=== PATIENT | male | born 1970 | race Caucasian/White ===

== ENCOUNTER 2018-06-06 10:53 | Observation (INO) | payer BC ==
[2018-06-06 12:23] VITALS: BMI 34.9
[2018-06-06] MEDS: NA CHLORIDE 0.9% 1,000 ML IV SCH ×2 (13:09→20:13)
[2018-06-06 15:20] LABS: Urine Appearance CLEAR; Urine Bilirubin NEGATIVE (NEG); Urine Blood NEGATIVE (NEG); Urine Color YELLOW; Urine Glucose TRACE (NEG); Urine Protein TRACE (NEG); Urine Specific Gravity >=1.030 (1.005-1.030); Urine Urobilinogen 0.2 mg/dL (0.2-1.0)
[2018-06-06 15:21] LABS: Urine Microscopic Reflex ORDER UMIC
[2018-06-06 16:03] LABS: Urine Bacteria <20 /HPF (NONE SEEN); Urine RBC <5 /HPF (NONE SEEN)
[2018-06-06 16:04] LABS: Urine Culture Reflex Order NOT NEEDED; Urine Mucus 2+ /HPF (NONE SEEN)
[2018-06-06] MEDS ORDERED: ACETAMINOPHEN 500 MG TAB PO PRN (19:39)
[2018-06-06 22:57] VITALS: O2SAT 98
[2018-06-07] MEDS: NA CHLORIDE 0.9% 1,000 ML IV SCH ×2 (01:06→08:36)
[2018-06-07 04:37] LABS: Absolute Monocytes 0.4 K/uL (0.1-1.3); Absolute Neutrophil 2.2 K/uL (1.8-8.0); Basophils % 1.1 % (0-1.3); Eosinophils % 6.8 % (0-4.4); Hematocrit 43.9 % (39.6-49.0); Lymphocytes % 26.2 % (15.3-44.8); MCH 28.5 pg (27.0-35.0); MCV 84.6 fL (80-100); MPV 7.8 fL (7.6-11.3); Monocytes % 11.2 % (3.3-12.3); RBC Red Blood Cell Count 5.19 M/uL (4.33-5.43)
[2018-06-07 05:09] LABS: Potassium 4.4 mmol/L (3.5-5.1)
[2018-06-07 08:12] VITALS: BP 135/88; TEMP 97.9
--- NOTE | 2018-06-07 19:35 | HP ---
Date of Admission: 06/06/2018 Chief Complaint: Dehydration. History Of Present Illness: This patient was seen the day before admission in the office with abdomi nal cramps, diarrhea, inability to take fluids. He was diagnosed as possible viral syndrome with gas troenteritis. The patient had outpatient workup. This showed evidence of dehydration. On the next day, the patient returned because of continued symptoms. At this point because of continued dehydrat ion, the patient was admitted for observation for IV fluids. There is no history of blood in the sto ols. No history of vomiting of blood. No other focal symptoms. Past Medical History: The patient is not known to have any history of chronic illnesses other than l ymphedema and acid reflux. Surgical History: Positive for knee surgery and cataract surgery. Family History: Positive for hypertension, heart disease, and diabetes. Personal History: Nonsmoker. Allergies: NONE. Home Medicines: None. Review of Systems: No history of chest pain or shortness of breath. Physical Examination: General: Revealed a 47-year-old male, clinically dehydrated. Vital Signs: Blood pressure 112/80. HEENT: Negative. Neck: Supple. JVD negative. Chest: Clear. Heart: Regular. Abdomen: Mild diffuse tenderness. Bowel sounds present. Extremities: No edema. Neurologic: Negative. Laboratory Data: White count normal. Outpatient Chem profile showed elevation of BUN and creatinine , compatible with dehydration. Assessment: 1.Probable viral syndrome and gastroenteritis. 2.Dehydration. Plan: The patient received IV fluids. This morning his kidney function is back to normal. He will be discharged and advised to increase his oral fluids, and he will be checked again in the office theo barnes. ROWDY/KYLAH Voice ID: [id number]
== END 2018-06-07 09:05 | disposition home or self-care (01) ==
LOC: 4TH 11:26
PROVIDERS: ADMIT Internal Medicine; ATTEND Internal Medicine
DX: E86.0 Dehydration (principal); R19.7 Diarrhea, unspecified
CPT/HCPCS: 36415; 80048; 81003; 81015; 85025; G0378; J7030

== ENCOUNTER 2019-08-14 23:08 | Emergency (ER) | payer BC ==
[2019-08-14 23:41] LABS: Absolute Lymphocytes (CBC) 2.1 K/uL (0.7-4.9); Basophils % 1.3 % (0-1.3); Hematocrit 43.3 % (39.6-49.0); Lymphocytes % 28.6 % (15.3-44.8); MPV 8.3 fL (7.6-11.3); RBC Red Blood Cell Count 5.31 M/uL (4.33-5.43)
[2019-08-14 23:54] LABS: ALT/SGPT 16 U/L (12-78); AST/SGOT 8 U/L (15-37); Albumin 3.7 g/dL (3.4-5.0); Alkaline Phosphatase 125 U/L (45-117); BUN Blood Urea Nitrogen 29 mg/dL (7-18); Bicarbonate 27 mmol/L (21-32); Bilirubin Direct < 0.1 mg/dL (0-0.2); Bilirubin Total 0.2 mg/dL (0.2-1.0); Glucose Level 126 mg/dL (74-106); Magnesium 2.4 mg/dL (1.8-2.4); Potassium 3.9 mmol/L (3.5-5.1); Protein, Total 7.3 g/dL (6.4-8.2); Sodium Level 138 mmol/L (136-145); Troponin (Emerg Dept Use Only) < 0.02 ng/mL (0.0-0.045)
[2019-08-15] LABS: NT PRO-BNP < 5 pg/mL (<125)
[2019-08-15] MEDS ORDERED: KETOROLAC 30 MG/ML INJ ONE (01:52)
--- NOTE | 2019-08-15 02:06 | EDPHYS ---
Physician Documentation [facility] Name: Damián Angeles Age: 49 yrs Sex: Male : 1970 Arrival Date: 08/14/2019 Time: 23:09 Bed 14 Private MD: ED Physician Luis Antonio Hou HPI: 08/14 23:21 This 49 yrs old Male presents to ER via Unassigned with complaints of Chest rn Pain. 23:21 The patient or guardian reports chest pain that is located primarily in the right rn lateral anterior chest and left lateral anterior chest. Onset: 1 hour(s) ago. The pain does not radiate. Associated signs and symptoms: Pertinent positives: None. Pertinent negatives: abdominal pain, cough, diaphoresis, dizziness, shortness of breath, syncope, vomiting. The chest pain is described as sharp, stabbing. Duration: The patient or guardian reports multiple episodes, that are intermittent. Modifying factors: The symptoms are alleviated by nothing. the symptoms are aggravated by palpation of area. Severity of pain: At its worst the pain was moderate in the emergency department the pain has improved. The patient has not experienced similar symptoms in the past. Reports at work, does not perform physical activities, began with right sided chest pain and now also having left sided chest pain, sharp/stabbing, non-radiating, worse with palpation. No vomiting/diaphoresis. Reports thinks had stress test 6 months ago and was ok. No abd pain/vomiting. No trauma. No smoking or cough. No hx of dvt/PE. No recent surgery. . Historical: - Allergies: 23:05 No Known Allergies; jb4 - Home Meds: 23:05 Hydrochlorothiazide Oral [Active]; Metformin Oral [Active]; pravastatin oral oral jb4 [Active]; a small blue pill for high blood pressure [Active]; - PMHx: 23:05 Hypertension; High Cholesterol; Diabetes - NIDDM; Hernia; jb4 - PSHx: 23:05 Knee surgery; Hernia repair; jb4 - Immunization history:: Adult Immunizations up to date. - Social history:: Smoking status: Patient/guardian denies using tobacco, Patient/guardian denies using alcohol. - Family history:: not pertinent. - Ebola Screening: : No symptoms or risks identified at this time. - Hospitalizations: : No recent hospitalization is reported. ROS: 23:21 Constitutional: Negative for fever, chills, and weight loss, Eyes: Negative for injury, rn pain, redness, and discharge, Neck: Negative for injury, pain, and swelling, Cardiovascular: Negative for palpitations, and edema, Respiratory: Negative for shortness of breath, cough, wheezing, and pleuritic chest pain, Abdomen/GI: Negative for abdominal pain, nausea, vomiting, diarrhea, and constipation, MS/Extremity: Negative for injury and deformity, Skin: Negative for injury, rash, and discoloration, Neuro: Negative for headache, weakness, numbness, tingling, and seizure. Exam: 23:21 Constitutional: Overweight male Head/Face: Normocephalic, atraumatic. ENT: MMM rn Chest/axilla: Normal chest wall appearance and motion. No lesions, + reproducible chest pain left lateral chest and into axilla. No fluctuance or warmth. Cardiovascular: Regular rate and rhythm, no murmur. No pulse deficits. Respiratory: Lungs have equal breath sounds bilaterally, clear to auscultation. No increased work of breathing, no retractions or nasal flaring. Abdomen/GI: Soft, non-tender. No evidence of tenderness throughout. MS/ Extremity: Pulses equal, no cyanosis. Neurovascular intact. Full, normal range of motion. Equal circumference. Neuro: Awake and alert, GCS 15, oriented to person, place, time, and situation. Cranial nerves II-XII grossly intact. Motor strength 5/5 in all extremities. Sensory grossly intact. Vital Signs: 23:05 BP 125 / 89; Pulse 82; Resp 18; Temp 98.3(O); Pulse Ox 99% on R/A; Weight 104.33 kg jb4 (R); Height 5 ft. 6 in. (167.64 cm) (R); Pain 410; 08/15 00:00 BP 122 / 92; Pulse 80; Resp 18; Pulse Ox 98% on R/A; jb4 01:00 BP 114 / 77; Pulse 76; Resp 16; Pulse Ox 97% on R/A; jb4 02:00 BP 105 / 74; Pulse 76; Resp 16; Pulse Ox 97% on R/A; jb4 08/14 23:05 Body Mass Index 37.12 (104.33 kg, 167.64 cm) jb4 MDM: 08/14 23:11 Patient medically screened. rn 08/15 01:39 Differential diagnosis: abnormal EKG, acute myocardial infarction, acute pericarditis, rn anxiety, coronary artery disease chest wall pain, costochondritis, esophagitis, pleurisy, pneumothorax. Data reviewed: vital signs, nurses notes. 02:04 Response to treatment: the patient's symptoms have mildly improved after treatment, and rn as a result, I will discharge patient. Special discussion: Based on the patient's history, exam, and Dx evaluation, there is no indication for emergent intervention or inpatient Tx. It is understood by the patient/guardian that if the Sx's persist or worsen they need to return immediately for re-evaluation. I discussed with the patient/guardian in detail that at this point there is no indication for admission to the hospital. It is understood, however, that if the symptoms persist or worsen the patient needs to return immediately for re-evaluation. ED course: Trop neg x 2, neg stress test a few months ago, reproducible chest wall tenderness, normal vitals, will dc home with return precautions and cardiology/pcp f/u. . 08/14 23:11 Order name: Basic Metabolic Panel; Complete Time: 00:04 rn 08/14 23:11 Order name: CBC with Diff; Complete Time: 00:04 rn 08/14 23:11 Order name: LFT's; Complete Time: 00:04 rn 08/14 23:11 Order name: Magnesium; Complete Time: 00:04 rn 08/14 23:11 Order name: NT PRO-BNP; Complete Time: 00:04 rn 08/14 23:11 Order name: Troponin (emerg Dept Use Only); Complete Time: 00:04 rn 08/14 23:11 Order name: XRAY Chest (1 view) rn 08/14 23:11 Order name: EKG; Complete Time: 23:12 rn 08/14 23:11 Order name: Cardiac monitoring; Complete Time: 23:27 rn 08/14 23:11 Order name: EKG - Nurse/Tech; Complete Time: 23:27 rn 08/14 23:11 Order name: IV Saline Lock; Complete Time: 23:27 rn 08/14 23:11 Order name: Labs collected and sent; Complete Time: 23: rn 08/15 00:20 Order name: Troponin (emerg Dept Use Only): draw at 00:45; Complete Time: 01:39 rn 08/14 23:11 Order name: O2 Per Protocol; Complete Time: 23:27 rn 08/14 23:11 Order name: O2 Sat Monitoring; Complete Time: 23:27 rn Administered Medications: 01:55 Drug: TORadol 30 mg Route: IVP; Site: right antecubital; jb4 02:21 Follow up: Response: No adverse reaction; Pain is decreased jb4 Disposition: 08/15/19 02:05 Discharged to Home. Impression: Chest pain, unspecified. - Condition is Stable. - Discharge Instructions: Nonspecific Chest Pain, Chest Wall Pain. - Medication Reconciliation Form, Thank You Letter, Antibiotic Education, Prescription Opioid Use form. - Follow up: Private Physician; When: As needed; Reason: Recheck today's complaints, Re-evaluation by your physician. - Problem is new. - Symptoms have improved. Signatures: Dispatcher [employer] EDLuis Antonio White MD MD rn Bryson, James, RN RN jb4 Corrections: (The following items were deleted from the chart) 02:24 02:05 08/15/2019 02:05 Discharged to Home. Impression: Chest pain, unspecified. jb4 Condition is Stable. Forms are Medication Reconciliation Form, Thank You Letter, Antibiotic Education, Prescription Opioid Use. Follow up: Private Physician; When: As needed; Reason: Recheck today's complaints, Re-evaluation by your physician. Problem is new. Symptoms have improved. rn
--- NOTE | 2019-08-15 02:06 | ER ---
Nurse's Notes [facility] Name: Damián Angeles Age: 49 yrs Sex: Male : 1970 Arrival Date: 08/14/2019 Time: 23:09 Bed 14 Private MD: Diagnosis: Chest pain, unspecified Presentation: 08/14 23:05 Presenting complaint: EMS states: Pt reports having right sided rib pain that radiated jb4 across to the left chest. Reports it as being a stabbing pain that is reproducible by palpation. Pt's co-worker administered 3 325mg aspirin's upon hear the complaint of chest pain. 23:05 Transition of care: patient was not received from another setting of care. Onset of jb4 symptoms was August 14, 2019. Risk Assessment: Do you want to hurt yourself or someone else? Patient reports no desire to harm self or others. Initial Sepsis Screen: Does the patient meet any 2 criteria? No. Patient's initial sepsis screen is negative. Does the patient have a suspected source of infection? No. Patient's initial sepsis screen is negative. Care prior to arrival: IV initiated. 20 GA, in the right antecubital area, Oxygen administered. via nasal cannula. 23:05 Method Of Arrival: EMS: [facility] jb4 23:05 Acuity: FELIBERTO 3 jb4 Historical: - Allergies: 23:05 No Known Allergies; jb4 - Home Meds: 23:05 Hydrochlorothiazide Oral [Active]; Metformin Oral [Active]; pravastatin oral oral jb4 [Active]; a small blue pill for high blood pressure [Active]; - PMHx: 23:05 Hypertension; High Cholesterol; Diabetes - NIDDM; Hernia; jb4 - PSHx: 23:05 Knee surgery; Hernia repair; jb4 - Immunization history:: Adult Immunizations up to date. - Social history:: Smoking status: Patient/guardian denies using tobacco, Patient/guardian denies using alcohol. - Family history:: not pertinent. - Ebola Screening: : No symptoms or risks identified at this time. - Hospitalizations: : No recent hospitalization is reported. Screenin:05 Abuse screen: Denies threats or abuse. Nutritional screening: No deficits noted. jb4 Tuberculosis screening: No symptoms or risk factors identified. Fall Risk IV access (20 points). Total Eastman Fall Scale indicates No Risk (0-24 pts). Assessment: 23:05 General: Appears in no apparent distress. uncomfortable, Behavior is calm, cooperative, jb4 appropriate for age. Pain: Complains of pain in right lateral anterior chest Pain radiates to anterior aspect of left upper chest and left lateral anterior chest Pain currently is 4 out of 10 on a pain scale. at worst was 8 out of 10 on a pain scale. Quality of pain is described as stabbing, Pain began 1 hour ago. Is continuous. Neuro: Level of Consciousness is awake, alert, obeys commands, Oriented to person, place, time, situation. Cardiovascular: Patient's skin is warm and dry. Rhythm is sinus rhythm. Respiratory: Airway is patent Respiratory effort is even, unlabored, Respiratory pattern is regular, symmetrical. GI: No deficits noted. No signs and/or symptoms were reported involving the gastrointestinal system. : No deficits noted. No signs and/or symptoms were reported regarding the genitourinary system. EENT: No deficits noted. No signs and/or symptoms were reported regarding the EENT system. Derm: Skin is intact, Skin is pink, warm \T\ dry. 08/15 00:10 Reassessment: Patient appears in no apparent distress at this time. Patient and/or jb4 family updated on plan of care and expected duration. Pain level reassessed. Patient is alert, oriented x 3, equal unlabored respirations, skin warm/dry/pink. Provider at the bedside. 01:19 Reassessment: Patient appears in no apparent distress at this time. Patient and/or jb4 family updated on plan of care and expected duration. Pain level reassessed. Patient is alert, oriented x 3, equal unlabored respirations, skin warm/dry/pink. 02:22 Reassessment: Patient appears in no apparent distress at this time. Patient and/or jb4 family updated on plan of care and expected duration. Pain level reassessed. Patient is alert, oriented x 3, equal unlabored respirations, skin warm/dry/pink. PT verbalized understanding of d/c and follow up instructions. Denies questions or concerns. Patient states feeling better. Patient states symptoms have improved. Vital Signs: 08/14 23:05 BP 125 / 89; Pulse 82; Resp 18; Temp 98.3(O); Pulse Ox 99% on R/A; Weight 104.33 kg jb4 (R); Height 5 ft. 6 in. (167.64 cm) (R); Pain 01/16; 08/15 00:00 BP 122 / 92; Pulse 80; Resp 18; Pulse Ox 98% on R/A; jb4 01:00 BP 114 / 77; Pulse 76; Resp 16; Pulse Ox 97% on R/A; jb4 02:00 BP 105 / 74; Pulse 76; Resp 16; Pulse Ox 97% on R/A; jb4 08/14 23:05 Body Mass Index 37.12 (104.33 kg, 167.64 cm) jb4 ED Course: 08/14 23:05 Arm band placed on right wrist. EKG completed in triage. Results shown to MD. jb4 23:05 Patient has correct armband on for positive identification. Placed in gown. Bed in low jb4 position. Call light in reach. Side rails up X 1. bus monitor on. Pulse ox on. NIBP on. 23:05 Maintain EMS IV. Dressing intact. Good blood return noted. Site clean \T\ dry. Gauge \T\ wanda 4 site: 20g RAC. Flushed right antecubital with 5 ml normal saline Converted IV to saline lock on right antecubital area. Patient maintains SpO2 saturation greater than 95% on room air. 23:09 Patient arrived in ED. ds1 23:11 Luis Antonio Hou MD is Attending Physician. rn 23:14 Klaus Xiong, KYLE is Primary Nurse. jb4 23:21 Triage completed. jb4 23:42 XRAY Chest (1 view) In Process Unspecified. EDMS 08/15 02:24 No provider procedures requiring assistance completed. IV discontinued, intact, jb4 bleeding controlled, No redness/swelling at site. Pressure dressing applied. Administered Medications: 01:55 Drug: TORadol 30 mg Route: IVP; Site: right antecubital; jb4 02:21 Follow up: Response: No adverse reaction; Pain is decreased jb4 Outcome: 02:05 Discharge ordered by . rn 02:24 Discharged to home ambulatory, with family. jb4 02:24 Condition: stable 02:24 Discharge instructions given to patient, family, Instructed on discharge instructions, follow up and referral plans. Demonstrated understanding of instructions, follow-up care. 02:24 Patient left the ED. jb4 Signatures: Dispatcher [employer] Teresa Madison ds1 Luis Antonio Hou MD MD rn Bryson, James, RN RN jb4
[2019-08-15 02:30] VITALS: O2SAT 97
[2019-08-15 02:31] VITALS: BP 105/74
--- NOTE | 2019-08-15 08:02 | RAD REPORT ---
EXAM DESCRIPTION: RAD - Chest Single View - 08/14/2019 11:42 pm CLINICAL HISTORY: CHEST PAIN Chest pain. COMPARISON: CHEST PA AND LAT 2 VIEW dated 10/04/2010; CHEST PA AND LAT 2 VIEW dated 05/22/2008; CHEST SINGLE VIEW dated 05/18/2008; CHEST PA AND LAT 2 VIEW dated 04/18/2008 FINDINGS: Portable technique limits examination quality. The lungs are grossly clear. The heart is normal in size. No displaced fractures. IMPRESSION: No acute intrathoracic process suspected.
--- NOTE | 2019-08-15 17:25 | EKG ---
Test Date: 2019-08-14 Test Time: 23:09:07 Plating Engineer: DENISA MEASUREMENT RESULTS: Intervals: Rate: 83 SC: 170 QRSD: 86 QT: 356 QTc: 418 [place]: P: 50 SC: 170 QRS: -5 T: 42 INTERPRETIVE STATEMENTS: Normal sinus rhythm Normal ECG Compared to ECG 05/22/2008 03:11:08 No significant changes Electronically Signed On 08-15-19 17:22:00 [employer] by Thompson Ji
== END 2019-08-15 02:24 | disposition home or self-care (01) ==
LOC: ER 23:08
DX: R07.9 Chest pain, unspecified (principal); E11.9 Type 2 diabetes mellitus without complications; I10 Essential (primary) hypertension; E78.5 Hyperlipidemia, unspecified
CPT/HCPCS: 36415; 71045; 80048; 80076; 83735; 83880; 84484; 85025; 93005; 96374; 99285

== ENCOUNTER 2022-02-19 15:40 | Inpatient (IN) | payer BC ==
[2022-02-19] MEDS ORDERED: MORPHINE 2 MG/ML SYR ONE (17:15)
[2022-02-19 17:21] LABS: Urine Blood Negative (Negative); Urine Glucose 2+ (Negative); Urine Protein Negative (Negative); Urine Specific Gravity 1.015 (1.005-1.030); Urine pH 5.5 (5.0-7.0)
[2022-02-19 17:36] LABS: Absolute Lymphocytes (CBC) 0.5 K/uL (0.7-4.9); Hematocrit 53.4 % (39.6-49.0); Lymphocytes % 3.2 % (15.3-44.8); RBC Red Blood Cell Count 6.33 M/uL (4.33-5.43)
[2022-02-19 17:41] LABS: Urine Bacteria <20 /HPF (NONE SEEN); Urine RBC <5 /HPF (NONE SEEN)
[2022-02-19 17:48] LABS: Protime INR 1.04
[2022-02-19 17:52] LABS: Albumin 4.4 g/dL (3.4-5.0); Bilirubin Direct 0.2 mg/dL (0-0.2); Bilirubin Total 0.7 mg/dL (0.2-1.0); Potassium 3.9 mmol/L (3.5-5.1); Protein, Total 8.2 g/dL (6.4-8.2); Troponin High Sensitivity 5.6 pg/mL (<58.9)
--- NOTE | 2022-02-19 17:59 | RAD REPORT ---
EXAM DESCRIPTION: US - Extrem Venous W Compress Melvin - 02/19/2022 5:48 pm CLINICAL HISTORY: Right calf pain COMPARISON: None. TECHNIQUE: Real-time sonographic evaluation of the bilateral lower extremity deep venous systems was performed. FINDINGS: Normal compressibility, flow augmentation, phasic flow and spontaneous flow is identified in both the left and right lower extremity deep venous systems. No intraluminal filling defects seen. IMPRESSION: No DVT in either lower extremity.
[2022-02-19] MEDS ORDERED: NA CHLORIDE 0.9% 1,000 ML ONE ×2 (18:17→20:39)
--- NOTE | 2022-02-19 18:46 | RAD REPORT ---
EXAM DESCRIPTION: RAD - Chest Single View - 02/19/2022 6:32 pm CLINICAL HISTORY: edema COMPARISON: Chest Single View dated 08/14/2019; CHEST PA AND LAT 2 VIEW dated 10/04/2010; CHEST PA AN D LAT 2 VIEW dated 05/22/2008; CHEST SINGLE VIEW dated 05/18/2008 FINDINGS: Lines: None. Lungs: No evidence of edema or pneumonia. Pleural: No significant pleural effusions or pneumothorax. Cardiac: The heart size is within normal limits. Bones: No acute fractures. Other: IMPRESSION: No acute cardiopulmonary disease.
[2022-02-19] MEDS ORDERED: KETOROLAC 30 MG/ML INJ ONE (19:44)
[2022-02-19 20:29] LABS: Blood Morphology Comment NOT SEEN (NOT SEEN); Platelet Estimate ADEQ; White Blood Cell Scan OK (OK)
--- NOTE | 2022-02-19 20:36 | EDPHYS ---
Physician Documentation [facility] Name: Damián Angeles Age: 51 yrs Sex: Male : 1970 Arrival Date: 02/19/2022 Time: 15:42 Bed 24 Private MD: ED Physician Zackery Odonnell HPI: 02/19 17:00 This 51 yrs old Male presents to ER via EMS with complaints of Leg Pain, Headache. cp 17:00 The patient presents with pain, that is acute. The complaints affect the medial aspect cp of right thigh. Context: resulted from an unknown cause, the patient can fully bear weight, the patient is able to ambulate, with mild difficulty. Onset: The symptoms/episode began/occurred today. Associated signs and symptoms: Pertinent positives: chills, Pertinent negatives fever, numbness, vomiting. Historical: - Allergies: 15:45 No Known Allergies; bp - Home Meds: 15:45 Hydrochlorothiazide Oral [Active]; a small blue pill for high blood pressure [Active]; bp Metformin Oral [Active]; pravastatin Oral [Active]; - PMHx: 15:45 Diabetes - NIDDM; Hernia; High Cholesterol; Hypertension; bp - Immunization history:: Adult Immunizations up to date. - Social history:: Smoking status: Patient denies any tobacco usage or history of. ROS: 17:05 Constitutional: Positive for body aches, chills, Negative for fever, poor PO intake. cp 17:05 Eyes: Negative for injury, pain, redness, and discharge. cp 17:05 ENT: Negative for drainage from ear(s), ear pain, sinus congestion, sore throat, difficulty swallowing, difficulty handling secretions. 17:05 Cardiovascular: Positive for edema, Negative for chest pain, palpitations. 17:05 Respiratory: Negative for cough, shortness of breath, wheezing. 17:05 Abdomen/GI: Negative for abdominal pain, nausea, vomiting, and diarrhea, constipation. 17:05 : Negative for urinary symptoms. 17:05 Neuro: Positive for headache, Negative for altered mental status, weakness. 17:05 All other systems are negative. Exam: 17:10 Constitutional: The patient appears in no acute distress, alert, awake, cp non-diaphoretic, non-toxic, well developed, well nourished, obese. 17:10 Head/Face: Normocephalic, atraumatic. cp 17:10 Eyes: Periorbital structures: appear normal, Conjunctiva: normal, no exudate, no injection, Sclera: no appreciated abnormality, Lids and lashes: appear normal, bilaterally. 17:10 ENT: External ear(s): are unremarkable, Nose: is normal, Mouth: Lips: moist, Oral mucosa: pink and intact, moist, Posterior pharynx: Airway: no evidence of obstruction, patent. 17:10 Neck: ROM/movement: is normal, is supple, without pain, no range of motions limitations, no meningismus. 17:10 Chest/axilla: Inspection: normal. 17:10 Cardiovascular: Rate: normal, Rhythm: regular, Edema: pedal edema, that is mild, ankle edema, that is mild, JVD: is not appreciated. 17:10 Respiratory: the patient does not display signs of respiratory distress, Respirations: normal, no use of accessory muscles, no retractions, labored breathing, is not present, Breath sounds: are clear throughout, no decreased breath sounds, no stridor, no wheezing. 17:10 Abdomen/GI: Inspection: abdomen appears normal, Palpation: abdomen is soft and non-tender, in all quadrants. 17:10 Back: pain, is absent, ROM is normal. 17:10 Musculoskeletal/extremity: Extremities: noted in the medial aspect of right thigh: pain, tenderness. 17:10 Neuro: Orientation: to person, place \\T\\ time. Mentation: is normal, Motor: moves all fours, strength is normal, Sensation: is normal. 18:15 ECG was reviewed by the Attending Physician. cp Vital Signs: 15:43 BP 130 / 91; Pulse 93; Resp 15; Temp 98; Pulse Ox 100% ; bp 19:00 BP 86 / 50; Pulse 114; Resp 18; Temp 99.1; Pulse Ox 96% on R/A; Pain 0/10; breana 20:00 BP 85 / 55; Pulse 105; Resp 18; Pulse Ox 95% on R/A; Pain 0/10; breana 21:16 BP 89 / 62; Pulse 110; Resp 18; Temp 99.1; Pulse Ox 97% on R/A; Pain 0/10; breana MDM: 16:11 Patient medically screened. 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 Post IV fluid administration reassessment for Sepsis: Client prescribed 30 mL/kg IVF. Focused Assessment performed: February 19, 2022 at 22:47 Heart: Regular rate/rhythm noted. Lungs: Noted to be clear bilaterally. Current vital signs reviewed: Yes. 02/19 16:57 Order name: Basic Metabolic Panel; Complete Time: 18:10 cp 02/19 18:10 Interpretation: Normal except: NA 134; GLUC 189; BUN 21; CRE 1.42; GFR 59. cp 02/19 16:57 Order name: CBC with Diff; Complete Time: 21:15 cp 02/19 18:10 Interpretation: Normal except: WBC 14.0; RBC 6.33; HCT 53.4; BETO% 92.0; LYM% 3.2; NEUT cp A 12.9; LYMA 0.5. 02/19 16:57 Order name: LFT's; Complete Time: 18:10 cp 02/19 18:11 Interpretation: Normal except: AST 5; ALK 141; GLOB 3.8. cp 02/19 16:57 Order name: Magnesium; Complete Time: 18:10 cp 02/19 16:57 Order name: NT PRO-BNP; Complete Time: 18:10 cp 02/19 16:57 Order name: PT-INR; Complete Time: 18:10 cp 02/19 16:57 Order name: Troponin HS; Complete Time: 18:10 cp 02/19 16:57 Order name: Urine Microscopic Only; Complete Time: 18:10 cp 02/19 16:57 Order name: COVID-19 SARS RT PCR (Document "Date of Onset" if Symptomatic); Complete cp Time: 20:00 02/19 16:57 Order name: Influenza Screen (a \\T\\ B); Complete Time: 20:00 cp 02/19 17:21 Order name: Urine Dipstick-Ancillary; Complete Time: 18:10 EDMS 02/19 18:53 Interpretation: Normal except: UGLUC 2+. cp 02/19 20:02 Order name: Lactate; Complete Time: 21:15 cp 02/19 20:02 Order name: Procalcitonin; Complete Time: 21:15 cp 02/19 21:15 Interpretation: Procalcitonin 2.20; Reviewed. 02/19 20:02 Order name: Blood Culture Adult (2) cp 02/19 20:29 Order name: CBC Smear Scan; Complete Time: 21:15 EDMS 02/19 21:23 Order name: Glucose, Ancillary Testing; Complete Time: 22:35 EDMS 02/20 04:52 Order name: Urinalysis EDMS 02/20 05:14 Order name: Comprehensive Metabolic Panel EDMS 02/20 05:20 Order name: CBC with Automated Diff EDMS 02/20 06:11 Order name: Urine Microscopic Only EDMS 02/20 08:10 Order name: Glucose, Ancillary Testing EDMS 02/20 11:46 Order name: Glucose, Ancillary Testing EDMS 02/20 16:06 Order name: Glucose, Ancillary Testing EDMS 02/20 20:27 Order name: Glucose, Ancillary Testing EDMS 02/21 04:38 Order name: CBC with Automated Diff EDMS 02/21 04:56 Order name: Comprehensive Metabolic Panel EDMS 02/21 07:56 Order name: Glucose, Ancillary Testing EDMS 02/21 08:06 Order name: Urine Culture EDMS 02/21 11:56 Order name: Glucose, Ancillary Testing EDMS 02/21 16:49 Order name: Glucose, Ancillary Testing EDMS 02/19 16:57 Order name: XRAY Chest (1 view); Complete Time: 18:53 02/19 18:53 Interpretation: Report review. 02/19 16:57 Order name: EKG; Complete Time: 16:57 02/19 16:57 Order name: Cardiac monitoring; Complete Time: 17:14 02/19 16:57 Order name: EKG - Nurse/Tech; Complete Time: 18:23 02/19 16:57 Order name: IV Saline Lock; Complete Time: 17:14 02/19 16:57 Order name: Labs collected and sent; Complete Time: 17:14 02/19 16:57 Order name: O2 Per Protocol; Complete Time: 17:14 cp 02/19 16:57 Order name: O2 Sat Monitoring; Complete Time: 17:14 cp 02/19 16:57 Order name: Urine Dipstick-Ancillary (obtain specimen); Complete Time: 17:21 cp 02/19 16:57 Order name: US Extremity Venous W Compression Melvin; Complete Time: 18:10 cp 02/21 20:23 Order name: Vancomycin Level Trough EDMS 02/21 21:10 Order name: Glucose, Ancillary Testing EDMS 02/22 03:53 Order name: CBC with Automated Diff EDMS 02/22 04:18 Order name: Comprehensive Metabolic Panel EDMS 02/22 07:34 Order name: Glucose, Ancillary Testing EDMS 02/22 11:23 Order name: Glucose, Ancillary Testing EDMS EC:15 Rate is 112 beats/min. Rhythm is regular. WV interval is normal. QRS interval is cp normal. QT interval is normal. Interpreted by me. Reviewed by me. Administered Medications: 17:15 Drug: morphine 2 mg Route: IVP; Site: right antecubital; bp 18:58 Follow up: Response: Pain is decreased bp 18:23 Drug: NS 0.9% 1000 ml Route: IV; Rate: 1 bolus; Site: right antecubital; bp 21:31 Follow up: IV Status: Completed infusion; IV Intake: 1000ml breana 19:51 Drug: Ketorolac 15 mg Route: IVP; Site: right antecubital; breana 20:32 Follow up: Response: No adverse reaction breana 20:39 Drug: Cefepime 2 grams Route: IVPB; Rate: 200 ml/hr; Infused Over: 30 mins; Site: right breana antecubital; 21:31 Follow up: IV Status: Completed infusion; IV Intake: 100ml breana 21:16 Drug: vancoMYCIN 1.5 grams Route: IVPB; Rate: calculated rate; Site: right antecubital; breana 21:31 Drug: NS 0.9% 1000 ml Route: IV; Rate: 1 bolus; Site: right antecubital; breana 02/21 08:48 CANCELLED (Physician Discretion): NS 0.9% 1000 ml IV at 125 ml/hr continuous jd3 08:48 CANCELLED (Physician Discretion): NS 0.9% 1000 ml IV at 1 bolus Per protocol; 1000 mL jd3 bolus Disposition Summary: 02/19/22 20:35 Hospitalization Ordered Hospitalization Status: Inpatient Admission cp Condition: Stable cp Problem: new cp Symptoms: have improved cp Bed/Room Type: Standard cp Location: [facility] ER HOLD(02/19/22 20:39) cg Room Assignment: ERHOLD-(02/19/22 20:39) cg Provider: Desmond Mckeon(02/19/22 21:37) la1 Diagnosis - Cellulitis of right lower limb cp Forms: - Medication Reconciliation Form cp - SBAR form cp Signatures: Dispatcher [employer] Kenny Chadwick, MIMA-Will SAND MIXER MACHINE-Cla1 Kelechi Murphy PA PA cp Teresa Childers, RN RN cg Will Martin RN RN bp O'Farrell, Brenda, RN RN bo Davies, Jonathon RN jd3 Corrections: (The following items were deleted from the chart) 02/19 18:11 18:11 Normal except: AST 5; ALK 141. cp cp 20:39 20:35 Telemetry/MedSurg (Inpatient) cp cg 20:39 20:35 cp cg 21:37 20:35 Kenny Menon cp la1 02/21 08:48 02/19 21:37 NS 0.9% 1000 ml IV at 125 ml/hr continuous ordered. la1 jd3 02/21 08:48 02/19 22:25 NS 0.9% 1000 ml IV at 1 bolus Per protocol; 1000 mL bolus ordered. cp jd3
--- NOTE | 2022-02-19 20:36 | ER ---
Nurse's Notes [facility] Name: Damián Angeles Age: 51 yrs Sex: Male : 1970 Arrival Date: 02/19/2022 Time: 15:42 Bed 24 Private MD: Diagnosis: Cellulitis of right lower limb Presentation: 02/19 15:43 Chief complaint: EMS states: BLE EDEMA AND PAIN, HEADACHE. Coronavirus screen: At this bp time, the client does not indicate any symptoms associated with coronavirus-19. Ebola Screen: No symptoms or risks identified at this time. Initial Sepsis Screen: Does the patient meet any 2 criteria? No. Patient's initial sepsis screen is negative. Does the patient have a suspected source of infection? No. Patient's initial sepsis screen is negative. Risk Assessment: Do you want to hurt yourself or someone else? Patient reports no desire to harm self or others. Onset of symptoms was February 19, 2022. Care prior to arrival: Glucose check: 159. 15:43 Method Of Arrival: EMS: [facility] bp 15:43 Acuity: FELIBERTO 3 bp Triage Assessment: 15:45 Headache History: The patient has had previous headaches and this one is similar to bp previous episodes. General: Appears in no apparent distress. uncomfortable, obese, Behavior is calm, cooperative, appropriate for age. Pain: Complains of pain in head, right leg and left leg Pain currently is 5 out of 10 on a pain scale. Pain began 1 day ago. Also complains of no other associated symptoms. EENT: No deficits noted. Neuro: Level of Consciousness is awake, alert, obeys commands, Oriented to Appropriate for age. Cardiovascular: No deficits noted. Respiratory: No deficits noted. GI: No signs and/or symptoms were reported involving the gastrointestinal system. : No signs and/or symptoms were reported regarding the genitourinary system. Derm: No deficits noted. Musculoskeletal: Swelling present in right leg and left leg. Historical: - Allergies: 15:45 No Known Allergies; bp - Home Meds: 15:45 Hydrochlorothiazide Oral [Active]; a small blue pill for high blood pressure [Active]; bp Metformin Oral [Active]; pravastatin Oral [Active]; - PMHx: 15:45 Diabetes - NIDDM; Hernia; High Cholesterol; Hypertension; bp - Immunization history:: Adult Immunizations up to date. - Social history:: Smoking status: Patient denies any tobacco usage or history of. Screenin:46 Abuse screen: Denies threats or abuse. Denies injuries from another. Nutritional bp screening: No deficits noted. Tuberculosis screening: No symptoms or risk factors identified. Fall Risk None identified. Assessment: 15:46 General: SEE TRIAGE NOTE. bp Vital Signs: 15:43 BP 130 / 91; Pulse 93; Resp 15; Temp 98; Pulse Ox 100% ; bp 19:00 BP 86 / 50; Pulse 114; Resp 18; Temp 99.1; Pulse Ox 96% on R/A; Pain 0/10; breana 20:00 BP 85 / 55; Pulse 105; Resp 18; Pulse Ox 95% on R/A; Pain 0/10; breana 21:16 BP 89 / 62; Pulse 110; Resp 18; Temp 99.1; Pulse Ox 97% on R/A; Pain 0/10; breana ED Course: 15:42 Patient arrived in ED. bp 15:44 Triage completed. bp 15:45 Arm band placed on. bp 15:46 Patient has correct armband on for positive identification. Bed in low position. Call bp light in reach. Side rails up X2. 16:02 Kelechi Murphy PA is PHCP. cp 16:02 Zackery Odonnell MD is Attending Physician. cp 17:06 Will Martin, KYLE is Primary Nurse. bp 17:21 Inserted saline lock: 20 gauge in right antecubital area, using aseptic technique. mb7 Blood collected. 17:21 Urine Microscopic Only Sent. mb7 17:49 US Extremity Venous W Compression Melvin In Process Unspecified. EDMS 18:11 EKG done, by ED staff, reviewed by Kelechi BURKS. mb7 18:34 XRAY Chest (1 view) In Process Unspecified. EDMS 20:32 Lactate Sent. breana 20:32 Procalcitonin Sent. breana 20:32 Blood Culture Adult (2) Sent. breana 20:34 Kenny Menon is Hospitalizing Provider. cp 20:38 Blood Culture Adult (2) Sent. breana 20:38 Procalcitonin Sent. breana 20:38 Lactate Sent. breana 20:50 Blood Culture Adult (2) Sent. breana 20:50 Procalcitonin Sent. breana 20:50 Lactate Sent. breana 21:37 Omitogun, Desmond, MD is Hospitalizing Provider. la1 02/21 07:21 Primary Nurse role handed off by Will Martin RN 02/22 07:00 No provider procedures requiring assistance completed. Patient admitted, IV remains in jl7 place. intact, No redness/swelling at site. Administered Medications: 02/19 17:15 Drug: morphine 2 mg Route: IVP; Site: right antecubital; bp 18:58 Follow up: Response: Pain is decreased bp 18:23 Drug: NS 0.9% 1000 ml Route: IV; Rate: 1 bolus; Site: right antecubital; bp 21:31 Follow up: IV Status: Completed infusion; IV Intake: 1000ml breana 19:51 Drug: Ketorolac 15 mg Route: IVP; Site: right antecubital; breana 20:32 Follow up: Response: No adverse reaction breana 20:39 Drug: Cefepime 2 grams Route: IVPB; Rate: 200 ml/hr; Infused Over: 30 mins; Site: right breana antecubital; 21:31 Follow up: IV Status: Completed infusion; IV Intake: 100ml breana 21:16 Drug: vancoMYCIN 1.5 grams Route: IVPB; Rate: calculated rate; Site: right antecubital; breana 21:31 Drug: NS 0.9% 1000 ml Route: IV; Rate: 1 bolus; Site: right antecubital; breana 02/21 08:48 CANCELLED (Physician Discretion): NS 0.9% 1000 ml IV at 125 ml/hr continuous jd3 08:48 CANCELLED (Physician Discretion): NS 0.9% 1000 ml IV at 1 bolus Per protocol; 1000 mL jd3 bolus Medication: 02/19 15:46 VIS not applicable for this client. bp Intake: 21:31 IV: 1000ml; Total: 1000ml. breana 21:31 IV: 100ml; Total: 1100ml. breana Outcome: 20:35 Decision to Hospitalize by Provider. 02/22 07:00 Admitted to ER Hold. Please see [facility] for further documentation. jl7 Condition: stable Discharge instructions given to patient, Instructed on the need for admit, Demonstrated understanding of instructions. 15:19 Patient left the ED. jl7 Signatures: Dispatcher [employer] EDMS Kenya Razo Lee, STUDENT UNION CONSULTANT-C STUDENT UNION CONSULTANT-Cla1 Kelechi Murphy PA PA cp Leal, Jahala, RN RN jl7 Will Martin RN RN Viviane Damon [facility] Skyla Zamora RN RN Rodríguez Gomez RN jd3
[2022-02-19] MEDS ORDERED: NA CHLORIDE 0.9% 100 ML IV ONE (20:39)
[2022-02-19] MEDS ORDERED: CEFEPIME 2 GM VIAL ONE (20:39)
[2022-02-19] MEDS ORDERED: VANCOMYCIN 1 GM/VIAL ONE (20:53)
[2022-02-19] MEDS ORDERED: NA CHLORIDE 0.9% 500 ML ONE (20:53)
[2022-02-19] MEDS ORDERED: VANCOMYCIN 500 MG/VIAL ONE (20:53)
--- NOTE | 2022-02-19 21:49 | P.HP ---
Certification for Inpatient Patient admitted to: Inpatient Patient will require the following post-hospital care: None Practitioner: I am a practitioner with admitting privileges, knowledge of patient current condition, hospital course, and medical plan of care. Services: Services provided to patient in accordance with Admission requirements found in Title 42 Section 412.3 of the Code of Federal Regulations Patient History Date of Service: 02/19/22 History of Present Illness: 51-year-old male with history of diabetes type [id number], hypertension, hyperlipidemia presents the emergency department for right lower extremity pain. Patient ports that he has similar pain when he has had episodes of cellulitis many years in the past. He reports the pain began this morning he has pain in his right lower extremity distally as well as in his groin area. Patient was evaluated emergency department found to have elevated white blood cell count at 14,000 mild acute kidney injury/CKD elevated procalcitonin ultrasound negative for DVT. Patient's blood pressure dropped while he was in emergency department to around 85/60 sepsis fluid bolus was initiated patient was given vancomycin and cefepime, ED provider wishes to admit for sepsis, cellulitis. Allergies No Known Hugo Allergy (Uncoded 06/06/18 12:04) Unknown Home Medications: NK [No Home Meds] 06/06/18 - Past Medical/Surgical History Diabetic: No -: lymphedema tiffany leg/feet -: reflux -: cataract -: tiffany knee surgery Psychosocial/ Personal History: Lives at home with family - Family History Father -: Heart disease, Hypertension, Diabetes Mother -: Heart disease - Social History Smoking Status: Never smoker Alcohol use: Yes CD- Drugs: No Caffeine use: Yes Place of Residence: Home Review of Systems 10-point ROS is otherwise unremarkable General: Malaise Musculoskeletal: Leg Pain Physical Examination - Physical Exam General: Alert, In no apparent distress, Oriented x3 HEENT: Atraumatic, PERRLA, Mucous membr. moist/pink, EOMI, Sclerae nonicteric Neck: Supple, 2+ carotid pulse no bruit, No LAD, Without JVD or thyroid abnormality Respiratory: Clear to auscultation bilaterally, Normal air movement Cardiovascular: Regular rate/rhythm, Normal S1 S2 Gastrointestinal: Normal bowel sounds, No tenderness Musculoskeletal: Erythema, Tenderness, Warmth Integumentary: No rashes Neurological: Normal speech, Normal strength at 5/5 x4 extr, Normal tone, Normal affect Lymphatics: No axilla or inguinal lymphadenopathy - Studies Laboratory Data (last 24 hrs) 02/19/22 17:15: PT 11.5, INR 1.04 02/19/22 17:15: WBC 14.0 H, Hgb 17.9, Hct 53.4 H, Plt Count 188 02/19/22 17:15: Sodium 134 L, Potassium 3.9, BUN 21 H, Creatinine 1.42 H, Glucose 189 H, Magnesium 2.0, Total Bilirubin 0.7, AST 5 L, ALT 18, Alkaline Phosphatase 141 H Microbiology Data (last 24 hrs): 02/19/22 17:06 Nasopharnyx Influenza Type A Antigen Screen - Final 02/19/22 17:06 Nasopharnyx Influenza Type B Antigen Screen - Final Assessment and Plan - Plan Assessment: Sepsis/severe sepsis secondary to right lower extremity cellulitis Diabetes type [id number] Hypertension Hyperlipidemia Plan: Sepsis/severe sepsis secondary to right lower extremity cellulitis: Patient receiving sepsis fluid bolus currently given the new onset of hypotension will maintain MAP greater than 65 plan central line if needed vasopressor therapy. Continue broad-spectrum antibiotics vancomycin/cefepime. Blood cultures obtained. Diabetes type [id number]: ACH S Accu-Chek, sliding scale insulin. Hypertension: Obtain and continue home medications, hold for now given hypotension/sepsis. Hyperlipidemia: Continue home medications. DVT PPX:Lovenox Code status:Full Discharge Plan: Home Plan to discharge in: 72 Hours - Advance Directives Does patient have a Living Will: No Does patient have a Durable POA for Healthcare: No - Code Status/Comfort Care Code Status Assessed: Yes Critical Care: No Time Spent Managing Pts Care (In Minutes): 55
[2022-02-19] MEDS ORDERED: TRAMADOL HCL 50 MG TAB PO PRN (22:34)
[2022-02-19] MEDS ORDERED: ONDANSETRON 4 MG/2 ML VIAL IV PRN (22:34)
[2022-02-19] MEDS ORDERED: VANCOMYCIN 1 GM in NA CHLORIDE 0.9% 250 ML IVPB SCH (22:34)
[2022-02-19] MEDS ORDERED: NA CHLORIDE 0.9% 2,000 ML ONE (23:16)
[2022-02-19] MEDS ORDERED: NA CHLORIDE 0.9% 1,000 ML IV ONE (23:30)
[2022-02-19] MEDS: NA CHLORIDE 0.9% 1,000 ML IV SCH (23:31)
[2022-02-19] MEDS: ACETAMINOPHEN 500 MG TAB PO PRN (23:56)
[2022-02-20] MEDS ORDERED: ACETAMINOPHEN 500 MG TAB ONE
[2022-02-20] MEDS ORDERED: NOREPINEPHRINE 4 MG in D5W 250 ML IV SCH (01:00)
[2022-02-20] MEDS ORDERED: VANCOMYCIN 250 MG in NA CHLORIDE 0.9% 100 ML IVPB ONE (01:00)
[2022-02-20 01:57] VITALS: BMI 35.0
[2022-02-20] MEDS ORDERED: VANCOMYCIN 500 MG/VIAL ONE (02:16)
[2022-02-20] MEDS ORDERED: NA CHLORIDE 0.9% 100 ML IV ONE ×3 (02:17→21:27)
[2022-02-20] MEDS ORDERED: TRAMADOL HCL 50 MG TAB ONE (04:38)
[2022-02-20 04:52] LABS: Urine Appearance Clear (Clear); Urine Bilirubin Negative (Negative); Urine Blood Negative (Negative); Urine Color Yellow (Yellow); Urine Glucose 2+ (Negative); Urine Protein Trace (Negative); Urine Urobilinogen 0.2 mg/dL (0.2-1.0); Urine pH 5.5 (5.0-7.0)
[2022-02-20 04:59] LABS: Absolute Lymphocytes (CBC) 0.6 K/uL (0.7-4.9); Hematocrit 42.7 % (39.6-49.0); Lymphocytes % 5.3 % (15.3-44.8); MPV 7.9 fL (7.6-11.3); RBC Red Blood Cell Count 5.01 M/uL (4.33-5.43)
[2022-02-20 05:11] LABS: Albumin 3.1 g/dL (3.4-5.0); Bilirubin Total 0.6 mg/dL (0.2-1.0); Potassium 3.9 mmol/L (3.5-5.1); Protein, Total 6.1 g/dL (6.4-8.2)
[2022-02-20] MEDS ORDERED: POTASSIUM 25 MEQ EFFERV TAB PO ONE (05:27)
[2022-02-20 05:44] LABS: Urine Microscopic Reflex ORDER UMIC
[2022-02-20] MEDS ORDERED: POTASSIUM 25 MEQ EFFERV TAB ONE (05:54)
[2022-02-20 06:11] LABS: Urine Bacteria 20-50 /HPF (NONE SEEN); Urine Mucus 1+ /HPF (NONE SEEN); Urine RBC <5 /HPF (NONE SEEN)
[2022-02-20] MEDS: NA CHLORIDE 0.9% 1,000 ML IV SCH ×3 (06:34→16:50)
[2022-02-20] MEDS ORDERED: INSULIN -REGULAR HUMAN 50 UNIT/0.5 ML ML ONE ×3 (09:07→21:22)
[2022-02-20] MEDS ORDERED: ENOXAPARIN 40 MG/0.4 ML SQ ONE (09:08)
[2022-02-20] MEDS ORDERED: CEFEPIME 1 GM/VIAL ONE ×2 (09:08→21:27)
[2022-02-20] MEDS ORDERED: NA CHLORIDE 0.9% 1,000 ML ONE ×2 (09:09→16:55)
[2022-02-20] MEDS: CEFEPIME 1 GM in NA CHLORIDE 0.9% 100 ML IV SCH ×2 (09:15→21:26)
[2022-02-20] MEDS: INSULIN -REGULAR HUMAN 50 UNIT/0.5 ML ML SQ SCH ×4 (09:16→21:26)
[2022-02-20] MEDS: ENOXAPARIN 40 MG/0.4 ML SQ SCH (09:21)
[2022-02-20] MEDS: HYDROCODONE/APAP 7.5/325 MG TAB PO PRN (10:08)
[2022-02-20] MEDS ORDERED: HYDROCODONE/APAP 7.5/325 MG TAB ONE (10:13)
[2022-02-20] MEDS ORDERED: PNEUMOCOCCAL VACCINE 0.5 ML IMVAC ONE (12:00)
--- NOTE | 2022-02-20 12:31 | P.PN ---
Subjective Date of Service: 02/20/22 Subjective: No new changes, Improving Physical Examination - Vital Signs Temperature: 97.0 F Blood Pressure: 102/79 Pulse: 88 Respirations: 24 Pulse Ox (%): 94 - Physical Exam General: Alert, Oriented x3 HEENT: Atraumatic, Normocephalic Neck: Supple Respiratory: Normal air movement Cardiovascular: Regular rate/rhythm, Normal S1 S2 Gastrointestinal: Soft and benign Musculoskeletal: No swelling Neurological: Normal speech, Normal strength at 5/5 x4 extr - Studies Laboratory Data (last 24 hrs) 02/19/22 17:15: PT 11.5, INR 1.04 02/19/22 17:15: WBC 14.0 H, Hgb 17.9, Hct 53.4 H, Plt Count 188 02/19/22 17:15: Sodium 134 L, Potassium 3.9, BUN 21 H, Creatinine 1.42 H, Glucose 189 H, Magnesium 2.0, Total Bilirubin 0.7, AST 5 L, ALT 18, Alkaline Phosphatase 141 H Microbiology Data (last 24 hrs): 02/19/22 17:06 Nasopharnyx Influenza Type A Antigen Screen - Final 02/19/22 17:06 Nasopharnyx Influenza Type B Antigen Screen - Final Assessment And Plan - Plan Assessment and Plan - Plan Assessment: Sepsis/severe sepsis secondary to right lower extremity cellulitis Diabetes type [id number] Hypertension Hyperlipidemia Plan: Sepsis/severe sepsis secondary to right lower extremity cellulitis: Improved parameters. Hyperemia is still improved. we will continue vand and cefepime doses. we will follow cultures. Diabetes type [id number]: ACHS Accu-Checks, sliding scale insulin. Hypertension: We will continue home meds and follow blood pressure reads. Hyperlipidemia: Continue home medications. DVT PPX:Lovenox. Code status:Full. Discharge Plan: Home Plan to discharge in: 48hrs.
[2022-02-20] MEDS ORDERED: VANCOMYCIN 1.75 GM in NA CHLORIDE 0.9% 500 ML IVPB SCH (20:00)
[2022-02-20] MEDS: VANCOMYCIN 1.75 GM in NA CHLORIDE 0.9% 500 ML IVPB SCH (22:03)
[2022-02-21] MEDS: HYDROCODONE/APAP 7.5/325 MG TAB PO PRN (03:14)
[2022-02-21] MEDS ORDERED: HYDROCODONE/APAP 7.5/325 MG TAB ONE (03:19)
[2022-02-21] MEDS: NA CHLORIDE 0.9% 1,000 ML IV SCH ×3 (03:42→14:34)
[2022-02-21 04:19] LABS: Hematocrit 39.9 % (39.6-49.0); Lymphocytes % 13.8 % (15.3-44.8); MPV 7.7 fL (7.6-11.3); RBC Red Blood Cell Count 4.72 M/uL (4.33-5.43)
[2022-02-21 04:48] LABS: Albumin 2.7 g/dL (3.4-5.0); Bilirubin Total 0.4 mg/dL (0.2-1.0); Potassium 3.6 mmol/L (3.5-5.1); Protein, Total 6.2 g/dL (6.4-8.2)
[2022-02-21] MEDS ORDERED: POTASSIUM 25 MEQ EFFERV TAB PO ONE (05:40)
[2022-02-21] MEDS ORDERED: POTASSIUM 25 MEQ EFFERV TAB ONE (06:36)
[2022-02-21] MEDS: INSULIN -REGULAR HUMAN 50 UNIT/0.5 ML ML SQ SCH ×4 (07:30→21:08)
[2022-02-21] MEDS ORDERED: NA CHLORIDE 0.9% 100 ML IV ONE ×2 (08:38→21:08)
[2022-02-21] MEDS ORDERED: CEFEPIME 1 GM/VIAL ONE ×2 (08:38→21:06)
[2022-02-21] MEDS ORDERED: ENOXAPARIN 40 MG/0.4 ML SQ ONE (08:38)
[2022-02-21] MEDS: ENOXAPARIN 40 MG/0.4 ML SQ SCH (09:00)
[2022-02-21] MEDS: CEFEPIME 1 GM in NA CHLORIDE 0.9% 100 ML IV SCH ×2 (09:00→21:07)
--- NOTE | 2022-02-21 10:07 | EKG ---
Test Date: 2022-02-19 Test Time: 18:10:44 Event Security Officer: MB MEASUREMENT RESULTS: Intervals: Rate: 112 OH: 162 QRSD: 88 QT: 316 QTc: 431 [place]: P: 51 OH: 162 QRS: 26 T: 35 INTERPRETIVE STATEMENTS: Sinus tachycardia Otherwise normal ECG Compared to ECG 08/14/2019 23:09:07 Sinus rhythm no longer present Electronically Signed On 02-21-22 10:02:55 CDT by Thompson Ji
[2022-02-21] MEDS ORDERED: NA CHLORIDE 0.9% 1,000 ML ONE (12:02)
[2022-02-21] MEDS ORDERED: INSULIN -REGULAR HUMAN 50 UNIT/0.5 ML ML ONE ×2 (16:56→21:08)
[2022-02-21] MEDS ORDERED: ALBUMIN HUMAN 25% 0 ML IV ONE (17:33)
[2022-02-21] MEDS ORDERED: ALBUMIN HUMAN 25% 12.5 GM, FUROSEMIDE 100 MG in NA CHLORIDE 0.9% 40 ML IV SCH (18:00)
[2022-02-21] MEDS: HYDROCORTISONE SUC 100 MG INJ IV SCH (18:00)
[2022-02-21] MEDS ORDERED: HYDROCORTISONE SUC 100 MG INJ ONE (18:31)
[2022-02-21] MEDS: VANCOMYCIN 1.75 GM in NA CHLORIDE 0.9% 500 ML IVPB SCH (21:07)
[2022-02-22] MEDS: HYDROCORTISONE SUC 100 MG INJ IV SCH ×2 (00:35→05:36)
[2022-02-22] MEDS ORDERED: HYDROCORTISONE SUC 100 MG INJ ONE ×2 (00:40→05:38)
[2022-02-22] MEDS: HYDROCODONE/APAP 7.5/325 MG TAB PO PRN (00:41)
[2022-02-22] MEDS ORDERED: HYDROCODONE/APAP 7.5/325 MG TAB ONE (00:45)
[2022-02-22 03:48] VITALS: O2SAT 96
[2022-02-22 03:49] LABS: Absolute Lymphocytes (CBC) 0.9 K/uL (0.7-4.9); Hematocrit 42.6 % (39.6-49.0); Lymphocytes % 13.4 % (15.3-44.8); MPV 7.8 fL (7.6-11.3); RBC Red Blood Cell Count 5.11 M/uL (4.33-5.43)
[2022-02-22 04:13] LABS: Albumin 3.4 g/dL (3.4-5.0); Bilirubin Total 0.4 mg/dL (0.2-1.0); Potassium 3.1 mmol/L (3.5-5.1); Protein, Total 7.5 g/dL (6.4-8.2)
[2022-02-22] MEDS ORDERED: POTASSIUM 25 MEQ EFFERV TAB PO ONE ×2 (04:34→09:15)
[2022-02-22] MEDS ORDERED: POTASSIUM 25 MEQ EFFERV TAB ONE ×2 (05:39→10:01)
[2022-02-22] MEDS: INSULIN -REGULAR HUMAN 50 UNIT/0.5 ML ML SQ SCH ×2 (07:46→11:18)
[2022-02-22] MEDS: ACETAMINOPHEN 500 MG TAB PO PRN (07:46)
[2022-02-22] MEDS ORDERED: ACETAMINOPHEN 500 MG TAB ONE (07:50)
[2022-02-22] MEDS ORDERED: INSULIN -REGULAR HUMAN 50 UNIT/0.5 ML ML ONE ×2 (07:50→11:22)
[2022-02-22] MEDS: CEFEPIME 1 GM in NA CHLORIDE 0.9% 100 ML IV SCH (09:00)
[2022-02-22] MEDS ORDERED: ALBUMIN HUMAN 25% 12.5 GM, FUROSEMIDE 100 MG in NA CHLORIDE 0.9% 40 ML IV SCH (09:00)
[2022-02-22] MEDS: ENOXAPARIN 40 MG/0.4 ML SQ SCH (09:59)
[2022-02-22] MEDS ORDERED: ENOXAPARIN 40 MG/0.4 ML SQ ONE (10:01)
[2022-02-22 11:22] VITALS: BP 112/87; TEMP 97
[2022-02-22] MEDS ORDERED: VANCOMYCIN 1.75 GM in NA CHLORIDE 0.9% 500 ML IVPB SCH (15:00)
[2022-02-22] MEDS ORDERED: DOXYCYCLINE 100 MG CAP PO SCH (21:00)
[2022-02-22] MEDS ORDERED: SMZ./TMP. 800/160 MG TABLET PO SCH (21:00)
== END 2022-02-22 15:15 | disposition home or self-care (01) | DRG 872 ==
LOC: ER 15:40 → ERHOLD 21:41
PROVIDERS: ADMIT Internal Medicine Nephrology; ATTEND Internal Medicine Nephrology
DX: A41.9 Sepsis, unspecified organism (principal); L03.115 Cellulitis of right lower limb; R65.20 Severe sepsis without septic shock; E11.9 Type 2 diabetes mellitus without complications; I10 Essential (primary) hypertension; E78.5 Hyperlipidemia, unspecified; Z20.822 Contact with and (suspected) exposure to COVID-19
CPT/HCPCS: 36415; 71045; 80048; 80053; 80076; 80202; 81003; 81015; 82947; 83605; 83735; 83880; 84145; 84484; 85025; 85610; 87040; 87086; 87088; 87804; 93005; 93970; 96361; 96365; 96375; 99285; J0692; J1650; J1720; J1815; J1940; J2270; J3370; J7030; J7040; P9047; U0003

== ENCOUNTER 2024-01-31 07:51 | Emergency (ER) | payer BC ==
--- OUTSIDE RECORDS SUMMARY | 2024-01-31 07:56 | XMS REPORT | Continuity of Care Document ---
Author Name Unknown Address [address] [facility] [address] [place] [address] [facility] [address] [facility] [address] [place] [address] Care Team Providers Care Casing Man Name Role Phone MARGARETTE_Maria Dolores Attending Clinician Unavailable SARA Attending Clinician Unavailable Jackelin Vega Attending Clinician Unavailable Neo Lawrence Attending Clinician [phone] GLEN CARMEN Attending Clinician Unavailable Gramm Francisca GUILLERMO Attending Clinician [phone] FRANCISCA MARCELINO Attending Clinician Unavailable Doctor Unassigned, [place] Attending Clinician U tavaresailAida Cuba MD Attending Clinician [phone] , [facility] Procedure Attending Clinician Unavailable AIDA LEE Attending Clinician Unavailable Po, [facility] Attending Clinician Unavailabl e MARGARETTE_Maria Dolores Admitting Clinician Unavailable SARA Admitting Clinician Unavailable Jackelin Vega Admitting Clinician Unavailable Payers Payer Name Policy Type Policy Number Effective Date Expirati on Date Source [place] [id number] 2020 00:00:00 [place] [id number] 2020 00:00:00 Problems Condition Name Condition Details Condition Category Status Onset Date Resolution Date Last Treatment Date Treating Clinician Comments Source Chronic kidney disease stage 3A Chronic Kidney Disease Stage 3a Problem Active 2023-1 2-14 00:00: 00 [facility] Decreased renal function Decreased Renal Function Problem Active 06-29 00:00: 00 [facility] Type 2 diabetes mellitus Type 2 Diabetes Mellitus Problem Active 3- 00:00: 00 [facility] Erectile dysfunctio n Erectile Dysfunctio n Problem Active 06-28 00:00: 00 [facility] Mixed hyperlipid emia Mixed Hyperlipid emia Problem Active 02-28 00:00: 00 [facility] Hemorrhagi c cystitis Hemorrhagi c Cystitis Problem Active 04-01 00:00: 00 [facility] Diabetic peripheral neuropathy Diabetic Peripheral Neuropathy Problem Active 3 00:00: 00 [facility] Body mass index 30+ - obesity Body Mass Index 30+ - Obesity Problem Active 11-09 00:00: 00 [facility] Hypertensi ve disorder Hypertensi ve Disorder Problem Active 2 00:00: 00 [facility] Lymphedema Lymphedema Problem Active 11-09 00:00: 00 [facility] Gastro-eso phageal reflux disease with esophagiti s Gastro-eso phageal Reflux Disease with Esophagiti s Problem Active 2 00:00: 00 [facility] Gastric ulcer Gastric Ulcer Problem Active 2 00:00: 00 [facility] Peptic ulcer Peptic Ulcer Problem Active 2 00:00: 00 [facility] Deltoid tendinitis Deltoid Tendinitis Problem Active 11-09 00:00: 00 [facility] No known active problems No known active problems Disease [facility] Allergies, Adverse Reactions, Alerts Allergy Name Allergy Type Status Severity Reaction(s) Onset Date Inactive Date Treating Clinician Comments Source No Known Allergie s DA Active U 5-16 00:00: 00 [facility] NO KNOWN ALLERGIE S Drug Class Active [facility] Social History Social Habit Start Date Stop Date Quantity Comments Source Exposure to SARS-CoV-2 (event) Not sure [facility] Tobacco use and exposure 2021-04-08 00:00:00 2021-04-08 00:00:00 Current user [facility] Sex Assigned At 1970 00:00:00 1970 00:00:00 [facility] Smoking Status Start Date Stop Date Source Never smoker [facility] Unknown if ever smoked [facility] Medications Ordered Medication Name Filled Medication Name Start Date Stop Date Current Medication? Ordering Clinician Indication Dosage Frequency Signature (SIG) Comments Components Source SITagliptin (JANUVIA) 50 mg tablet 04-05 21:37: 13 Yes Januvia 50 mg tablet TAKE 1 TABLET BY MOUTH EVERY DAY [facility] ciprofloxac in HCl 250 mg tablet 04-01 00:00: 00 Yes 250mg Take 250 mg by mouth 2 (two) times daily. [facility] FreeStyle Michelle 14 Day Sensor kit USE DIRECTED FreeStyle Michelle 14 Day Sensor kit USE DIRECTED No FreeStyle Michelle 14 Day Sensor kit USE DIRECTED [facility] glimepiride 2 mg tablet TAKE 1 TABLET BY MOUTH EVERY DAY glimepiride 2 mg tablet TAKE 1 TABLET BY MOUTH EVERY DAY No glimepirid e 2 mg tablet TAKE 1 TABLET BY MOUTH EVERY DAY [facility] hydrochloro thiazide 25 mg tablet TAKE 1 TABLET BY MOUTH EVERY DAY hydrochloro thiazide 25 mg tablet TAKE 1 TABLET BY MOUTH EVERY DAY No hydrochlor othiazide 25 mg tablet TAKE 1 TABLET BY MOUTH EVERY DAY [facility] losartan 50 mg tablet TAKE 1 TABLET BY MOUTH EVERY DAY losartan 50 mg tablet TAKE 1 TABLET BY MOUTH EVERY DAY No losartan 50 mg tablet TAKE 1 TABLET BY MOUTH EVERY DAY [facility] metformin 500 mg tablet TAKE 2 TABLETS BY MOUTH TWICE DAILY metformin 500 mg tablet TAKE 2 TABLETS BY MOUTH TWICE DAILY No metformin 500 mg tablet TAKE 2 TABLETS BY MOUTH TWICE DAILY [facility] Micro Thin Lancets 33 gauge TEST TWICE DAILY Micro Thin Lancets 33 gauge TEST TWICE DAILY No Micro Thin Lancets 33 gauge TEST TWICE DAILY [facility] pantoprazol e 40 mg tablet,elder yed release TAKE 1 TABLET BY MOUTH EVERY DAY pantoprazol e 40 mg tablet,elder yed release TAKE 1 TABLET BY MOUTH EVERY DAY No pantoprazo le 40 mg tablet,del ayed release TAKE 1 TABLET BY MOUTH EVERY DAY [facility] tadalafil 20 mg tablet Take 1 tablet every day by oral route. tadalafil 20 mg tablet Take 1 tablet every day by oral route. No 1 Q1D tadalafil 20 mg tablet Take 1 tablet every day by oral route. [facility] True Metrix Glucose Meter USE DIRECTED True Metrix Glucose Meter USE DIRECTED No True Metrix Glucose Meter USE DIRECTED [facility] True Metrix Glucose Test Strip TEST TWICE DAILY True Metrix Glucose Test Strip TEST TWICE DAILY No True Metrix Glucose Test Strip TEST TWICE DAILY [facility] hydrochloro thiazide 25 mg tablet Take 1 tablet every day by oral route. hydrochloro thiazide 25 mg tablet Take 1 tablet every day by oral route. No 1 Q1D hydrochlor othiazide 25 mg tablet Take 1 tablet every day by oral route. [facility] losartan 50 mg tablet Take 1 tablet every day by oral route. losartan 50 mg tablet Take 1 tablet every day by oral route. No 1 Q1D losartan 50 mg tablet Take 1 tablet every day by oral route. [facility] metformin 500 mg tablet Take 1 tablet twice a day by oral route. metformin 500 mg tablet Take 1 tablet twice a day by oral route. No 1 BID metformin 500 mg tablet Take 1 tablet twice a day by oral route. [facility] omeprazole 40 mg capsule,del ayed release Take 1 capsule every day by oral route. omeprazole 40 mg capsule,del ayed release Take 1 capsule every day by oral route. No 1capsul e(s) Q1D omeprazole 40 mg capsule,de layed release Take 1 capsule every day by oral route. [facility] pantoprazol e 40 mg tablet,elder yed release Take 1 tablet every day by oral route. pantoprazol e 40 mg tablet,elder yed release Take 1 tablet every day by oral route. No 1 Q1D pantoprazo le 40 mg tablet,del ayed release Take 1 tablet every day by oral route. [facility] prednisone 20 mg tablet 4 tablets by mouth day one, 3 tabs day two, 2 tabs day three, 1 tab day 4 & 5 & 6 prednisone 20 mg tablet 4 tablets by mouth day one, 3 tabs day two, 2 tabs day three, 1 tab day 4 & 5 & 6 No prednisone 20 mg tablet 4 tablets by mouth day one, 3 tabs day two, 2 tabs day three, 1 tab day 4 & 5 & 6 [facility] cyclobenzap rine 10 mg tablet cyclobenzap rine 10 mg tablet No cyclobenza nemo 10 mg tablet [facility] etodolac 500 mg tablet TAKE 1 TABLET BY MOUTH TWICE DAILY etodolac 500 mg tablet TAKE 1 TABLET BY MOUTH TWICE DAILY No etodolac 500 mg tablet TAKE 1 TABLET BY MOUTH TWICE DAILY [facility] hydrochloro thiazide 25 mg tablet TAKE 1 TABLET BY MOUTH EVERY DAY hydrochloro thiazide 25 mg tablet TAKE 1 TABLET BY MOUTH EVERY DAY No hydrochlor othiazide 25 mg tablet TAKE 1 TABLET BY MOUTH EVERY DAY [facility] Kenalog 40 mg/mL suspension for injection Take 1 mL by injection route. Kenalog 40 mg/mL suspension for injection Take 1 mL by injection route. No 1mL Kenalog 40 mg/mL suspension for injection Take 1 mL by injection route. [facility] lidocaine (PF) 10 mg/mL (1 %) injection solution Take 1 mL by injection route. lidocaine (PF) 10 mg/mL (1 %) injection solution Take 1 mL by injection route. No 1mL lidocaine (PF) 10 mg/mL (1 %) injection solution Take 1 mL by injection route. [facility] Marcaine (PF) 0.5 % (5 mg/mL) injection solution Take 1 mL by injection route. Marcaine (PF) 0.5 % (5 mg/mL) injection solution Take 1 mL by injection route. No 1mL Marcaine (PF) 0.5 % (5 mg/mL) injection solution Take 1 mL by injection route. [facility] tamsulosin 0.4 mg capsule Take 1 capsule every day by oral route. tamsulosin 0.4 mg capsule Take 1 capsule every day by oral route. No 1capsul e(s) Q1D tamsulosin 0.4 mg capsule Take 1 capsule every day by oral route. [facility] Tradjenta 5 mg tablet Take 1 tablet every day by oral route. Tradjenta 5 mg tablet Take 1 tablet every day by oral route. No 1 Q1D Tradjenta 5 mg tablet Take 1 tablet every day by oral route. [facility] Januvia 50 mg tablet TAKE 1 TABLET BY MOUTH EVERY DAY Januvia 50 mg tablet TAKE 1 TABLET BY MOUTH EVERY DAY No Januvia 50 mg tablet TAKE 1 TABLET BY MOUTH EVERY DAY [facility] Cipro 250 mg tablet Take 1 tablet twice a day by oral route. Cipro 250 mg tablet Take 1 tablet twice a day by oral route. No 1 BID Cipro 250 mg tablet Take 1 tablet twice a day by oral route. [facility] atorvastati n 20 mg tablet Take 1 tablet every day by oral route. atorvastati n 20 mg tablet Take 1 tablet every day by oral route. No 1 Q1D atorvastat in 20 mg tablet Take 1 tablet every day by oral route. [facility] Farxiga 10 mg tablet Take 1 tablet every day by oral route. Farxiga 10 mg tablet Take 1 tablet every day by oral route. No 1 Q1D Farxiga 10 mg tablet Take 1 tablet every day by oral route. [facility] Farxiga 5 mg tablet Take 1 tablet every day by oral route. Farxiga 5 mg tablet Take 1 tablet every day by oral route. No 1 Q1D Farxiga 5 mg tablet Take 1 tablet every day by oral route. [facility] hydrochloro thiazide 25 mg tablet TAKE 1 TABLET BY MOUTH EVERY DAY hydrochloro thiazide 25 mg tablet TAKE 1 TABLET BY MOUTH EVERY DAY No hydrochlor othiazide 25 mg tablet TAKE 1 TABLET BY MOUTH EVERY DAY [facility] Januvia 50 mg tablet TAKE 1 TABLET BY MOUTH EVERY DAY Januvia 50 mg tablet TAKE 1 TABLET BY MOUTH EVERY DAY No Januvia 50 mg tablet TAKE 1 TABLET BY MOUTH EVERY DAY [facility] losartan 50 mg tablet TAKE 1 TABLET BY MOUTH EVERY DAY losartan 50 mg tablet TAKE 1 TABLET BY MOUTH EVERY DAY No losartan 50 mg tablet TAKE 1 TABLET BY MOUTH EVERY DAY [facility] metformin 500 mg tablet TAKE 2 TABLETS BY MOUTH TWICE DAILY metformin 500 mg tablet TAKE 2 TABLETS BY MOUTH TWICE DAILY No metformin 500 mg tablet TAKE 2 TABLETS BY MOUTH TWICE DAILY [facility] pantoprazol e 40 mg tablet,elder yed release TAKE 1 TABLET BY MOUTH EVERY DAY pantoprazol e 40 mg tablet,elder yed release TAKE 1 TABLET BY MOUTH EVERY DAY No pantoprazo le 40 mg tablet,del ayed release TAKE 1 TABLET BY MOUTH EVERY DAY [facility] tamsulosin 0.4 mg capsule TAKE 1 CAPSULE BY MOUTH DAILY tamsulosin 0.4 mg capsule TAKE 1 CAPSULE BY MOUTH DAILY No tamsulosin 0.4 mg capsule TAKE 1 CAPSULE BY MOUTH DAILY [facility] FreeStyle Michelle 14 Day [place] USE DIRECTED FreeStyle Michelle 14 Day [place] USE DIRECTED No FreeStyle Michelle 14 Day [place] USE DIRECTED [facility] FreeStyle Michelle 14 Day Sensor kit USE DIRECTED FreeStyle Michelle 14 Day Sensor kit USE DIRECTED No FreeStyle Michelle 14 Day Sensor kit USE DIRECTED [facility] Micro Thin Lancets 33 gauge TEST TWICE DAILY Micro Thin Lancets 33 gauge TEST TWICE DAILY No Micro Thin Lancets 33 gauge TEST TWICE DAILY [facility] True Metrix Glucose Meter USE DIRECTED True Metrix Glucose Meter USE DIRECTED No True Metrix Glucose Meter USE DIRECTED [facility] True Metrix Glucose Test Strip TEST TWICE DAILY True Metrix Glucose Test Strip TEST TWICE DAILY No True Metrix Glucose Test Strip TEST TWICE DAILY [facility] minocycline 100 mg capsule Take 1 capsule by mouth twice daily minocycline 100 mg capsule Take 1 capsule by mouth twice daily No minocyclin e 100 mg capsule Take 1 capsule by mouth twice daily [facility] prednisone 20 mg tablet prednisone 20 mg tablet No prednisone 20 mg tablet [facility] sulfamethox azole 800 mg-trimetho prim 160 mg tablet Take 1 tablet BID PO sulfamethox azole 800 mg-trimetho prim 160 mg tablet Take 1 tablet BID PO No sulfametho xazole 800 mg-trimeth oprim 160 mg tablet Take 1 tablet BID PO [facility] Bactrim DS 800 mg-160 mg tablet Take 1 tablet every 12 hours by oral route. Bactrim DS 800 mg-160 mg tablet Take 1 tablet every 12 hours by oral route. No 1 Q12H Bactrim DS 800 mg-160 mg tablet Take 1 tablet every 12 hours by oral route. [facility] glimepiride 2 mg tablet Take 1 tablet every day by oral route. glimepiride 2 mg tablet Take 1 tablet every day by oral route. No 1 Q1D glimepirid e 2 mg tablet Take 1 tablet every day by oral route. [facility] atorvastati n 20 mg tablet TAKE 1 TABLET BY MOUTH EVERY DAY atorvastati n 20 mg tablet TAKE 1 TABLET BY MOUTH EVERY DAY No atorvastat in 20 mg tablet TAKE 1 TABLET BY MOUTH EVERY DAY [facility] Farxiga 10 mg tablet TAKE 1 TABLET BY MOUTH EVERY DAY Farxiga 10 mg tablet TAKE 1 TABLET BY MOUTH EVERY DAY No Farxiga 10 mg tablet TAKE 1 TABLET BY MOUTH EVERY DAY [facility] FreeStyle Michelle 14 Day [place] USE DIRECTED FreeStyle Michelle 14 Day [place] USE DIRECTED No FreeStyle Michelle 14 Day [place] USE DIRECTED [facility] FreeStyle Michelle 14 Day Sensor kit USE DIRECTED FreeStyle Michelle 14 Day Sensor kit USE DIRECTED No FreeStyle Michelle 14 Day Sensor kit USE DIRECTED [facility] glimepiride 2 mg tablet TAKE 1 TABLET BY MOUTH EVERY DAY glimepiride 2 mg tablet TAKE 1 TABLET BY MOUTH EVERY DAY No glimepirid e 2 mg tablet TAKE 1 TABLET BY MOUTH EVERY DAY [facility] hydrochloro thiazide 25 mg tablet TAKE 1 TABLET BY MOUTH EVERY DAY hydrochloro thiazide 25 mg tablet TAKE 1 TABLET BY MOUTH EVERY DAY No hydrochlor othiazide 25 mg tablet TAKE 1 TABLET BY MOUTH EVERY DAY [facility] losartan 50 mg tablet TAKE 1 TABLET BY MOUTH EVERY DAY losartan 50 mg tablet TAKE 1 TABLET BY MOUTH EVERY DAY No losartan 50 mg tablet TAKE 1 TABLET BY MOUTH EVERY DAY [facility] metformin 500 mg tablet TAKE 2 TABLETS BY MOUTH TWICE DAILY metformin 500 mg tablet TAKE 2 TABLETS BY MOUTH TWICE DAILY No metformin 500 mg tablet TAKE 2 TABLETS BY MOUTH TWICE DAILY [facility] Micro Thin Lancets 33 gauge TEST TWICE DAILY Micro Thin Lancets 33 gauge TEST TWICE DAILY No Micro Thin Lancets 33 gauge TEST TWICE DAILY [facility] minocycline 100 mg capsule TAKE 1 CAPSULE BY MOUTH TWICE DAILY minocycline 100 mg capsule TAKE 1 CAPSULE BY MOUTH TWICE DAILY No minocyclin e 100 mg capsule TAKE 1 CAPSULE BY MOUTH TWICE DAILY [facility] pantoprazol e 40 mg tablet,elder yed release TAKE 1 TABLET BY MOUTH EVERY DAY pantoprazol e 40 mg tablet,elder yed release TAKE 1 TABLET BY MOUTH EVERY DAY No pantoprazo le 40 mg tablet,del ayed release TAKE 1 TABLET BY MOUTH EVERY DAY [facility] True Metrix Glucose Meter USE DIRECTED True Metrix Glucose Meter USE DIRECTED No True Metrix Glucose Meter USE DIRECTED [facility] True Metrix Glucose Test Strip TEST TWICE DAILY True Metrix Glucose Test Strip TEST TWICE DAILY No True Metrix Glucose Test Strip TEST TWICE DAILY [facility] Paxlovid 300 mg (150 mg x 2)-100 mg tablets in a dose pack (EUA) Take 3 tablets twice a day by oral route for 5 days. Paxlovid 300 mg (150 mg x 2)-100 mg tablets in a dose pack (EUA) Take 3 tablets twice a day by oral route for 5 days. No 3 BID Paxlovid 300 mg (150 mg x 2)-100 mg tablets in a dose pack (EUA) Take 3 tablets twice a day by oral route for 5 days. [facility] Zithromax Z-Venancio 250 mg tablet TAKE 2 TABLETS (500 MG) BY ORAL ROUTE ONCE DAILY FOR 1 DAY THEN 1 TABLET (250 MG) BY ORAL ROUTE ONCE DAILY FOR 4 DAYS Zithromax Z-Venancio 250 mg tablet TAKE 2 TABLETS (500 MG) BY ORAL ROUTE ONCE DAILY FOR 1 DAY THEN 1 TABLET (250 MG) BY ORAL ROUTE ONCE DAILY FOR 4 DAYS No Zithromax Z-Venancio 250 mg tablet TAKE 2 TABLETS (500 MG) BY ORAL ROUTE ONCE DAILY FOR 1 DAY THEN 1 TABLET (250 MG) BY ORAL ROUTE ONCE DAILY FOR 4 DAYS [facility] atorvastati n 20 mg tablet TAKE 1 TABLET BY MOUTH EVERY DAY atorvastati n 20 mg tablet TAKE 1 TABLET BY MOUTH EVERY DAY No atorvastat in 20 mg tablet TAKE 1 TABLET BY MOUTH EVERY DAY [facility] Bydureon BCise 2 mg/0.85 mL subcutaneou s auto-inject or ADMINISTER 0.85 ML UNDER THE SKIN EVERY WEEK Bydureon BCise 2 mg/0.85 mL subcutaneou s auto-inject or ADMINISTER 0.85 ML UNDER THE SKIN EVERY WEEK No Bydureon BCise 2 mg/0.85 mL subcutaneo us auto-injec tor ADMINISTER 0.85 ML UNDER THE SKIN EVERY WEEK [facility] Farxiga 10 mg tablet TAKE 1 TABLET BY MOUTH EVERY DAY Farxiga 10 mg tablet TAKE 1 TABLET BY MOUTH EVERY DAY No Farxiga 10 mg tablet TAKE 1 TABLET BY MOUTH EVERY DAY [facility] FreeStyle Michelle 14 Day [place] USE DIRECTED FreeStyle Michelle 14 Day [place] USE DIRECTED No FreeStyle Michelle 14 Day [place] USE DIRECTED [facility] FreeStyle Michelle 14 Day Sensor kit USE DIRECTED FreeStyle Michelle 14 Day Sensor kit USE DIRECTED No FreeStyle Michelle 14 Day Sensor kit USE DIRECTED [facility] glimepiride 2 mg tablet TAKE 1 TABLET BY MOUTH EVERY DAY glimepiride 2 mg tablet TAKE 1 TABLET BY MOUTH EVERY DAY No glimepirid e 2 mg tablet TAKE 1 TABLET BY MOUTH EVERY DAY [facility] hydrochloro thiazide 25 mg tablet TAKE 1 TABLET BY MOUTH EVERY DAY hydrochloro thiazide 25 mg tablet TAKE 1 TABLET BY MOUTH EVERY DAY No hydrochlor othiazide 25 mg tablet TAKE 1 TABLET BY MOUTH EVERY DAY [facility] losartan 50 mg tablet TAKE 1 TABLET BY MOUTH EVERY DAY losartan 50 mg tablet TAKE 1 TABLET BY MOUTH EVERY DAY No losartan 50 mg tablet TAKE 1 TABLET BY MOUTH EVERY DAY [facility] metformin 500 mg tablet TAKE 2 TABLETS BY MOUTH TWICE DAILY metformin 500 mg tablet TAKE 2 TABLETS BY MOUTH TWICE DAILY No metformin 500 mg tablet TAKE 2 TABLETS BY MOUTH TWICE DAILY [facility] Micro Thin Lancets 33 gauge TEST TWICE DAILY Micro Thin Lancets 33 gauge TEST TWICE DAILY No Micro Thin Lancets 33 gauge TEST TWICE DAILY [facility] minocycline 100 mg capsule TAKE 1 CAPSULE BY MOUTH TWICE DAILY minocycline 100 mg capsule TAKE 1 CAPSULE BY MOUTH TWICE DAILY No minocyclin e 100 mg capsule TAKE 1 CAPSULE BY MOUTH TWICE DAILY [facility] pantoprazol e 40 mg tablet,elder yed release TAKE 1 TABLET BY MOUTH EVERY DAY pantoprazol e 40 mg tablet,elder yed release TAKE 1 TABLET BY MOUTH EVERY DAY No pantoprazo le 40 mg tablet,del ayed release TAKE 1 TABLET BY MOUTH EVERY DAY [facility] tadalafil 20 mg tablet TAKE 1 TABLET BY MOUTH EVERY DAY tadalafil 20 mg tablet TAKE 1 TABLET BY MOUTH EVERY DAY No tadalafil 20 mg tablet TAKE 1 TABLET BY MOUTH EVERY DAY [facility] True Metrix Glucose Meter USE DIRECTED True Metrix Glucose Meter USE DIRECTED No True Metrix Glucose Meter USE DIRECTED [facility] True Metrix Glucose Test Strip TEST TWICE DAILY True Metrix Glucose Test Strip TEST TWICE DAILY No True Metrix Glucose Test Strip TEST TWICE DAILY [facility] atorvastati n 20 mg tablet TAKE 1 TABLET BY MOUTH EVERY DAY atorvastati n 20 mg tablet TAKE 1 TABLET BY MOUTH EVERY DAY No atorvastat in 20 mg tablet TAKE 1 TABLET BY MOUTH EVERY DAY [facility] Bydureon BCise 2 mg/0.85 mL subcutaneou s auto-inject or ADMINISTER 0.85 ML UNDER THE SKIN EVERY WEEK Bydureon BCise 2 mg/0.85 mL subcutaneou s auto-inject or ADMINISTER 0.85 ML UNDER THE SKIN EVERY WEEK No Bydureon BCise 2 mg/0.85 mL subcutaneo us auto-injec tor ADMINISTER 0.85 ML UNDER THE SKIN EVERY WEEK [facility] Farxiga 10 mg tablet TAKE 1 TABLET BY MOUTH EVERY DAY Farxiga 10 mg tablet TAKE 1 TABLET BY MOUTH EVERY DAY No Farxiga 10 mg tablet TAKE 1 TABLET BY MOUTH EVERY DAY [facility] FreeStyle Michelle 14 Day [place] USE DIRECTED FreeStyle Michelle 14 Day [place] USE DIRECTED No FreeStyle Michelle 14 Day [place] USE DIRECTED [facility] FreeStyle Michelle 14 Day Sensor kit USE DIRECTED FreeStyle Michelle 14 Day Sensor kit USE DIRECTED No FreeStyle Michelle 14 Day Sensor kit USE DIRECTED [facility] glimepiride 2 mg tablet TAKE 1 TABLET BY MOUTH EVERY DAY glimepiride 2 mg tablet TAKE 1 TABLET BY MOUTH EVERY DAY No glimepirid e 2 mg tablet TAKE 1 TABLET BY MOUTH EVERY DAY [facility] hydrochloro thiazide 25 mg tablet TAKE 1 TABLET BY MOUTH EVERY DAY hydrochloro thiazide 25 mg tablet TAKE 1 TABLET BY MOUTH EVERY DAY No hydrochlor othiazide 25 mg tablet TAKE 1 TABLET BY MOUTH EVERY DAY [facility] losartan 50 mg tablet TAKE 1 TABLET BY MOUTH EVERY DAY losartan 50 mg tablet TAKE 1 TABLET BY MOUTH EVERY DAY No losartan 50 mg tablet TAKE 1 TABLET BY MOUTH EVERY DAY [facility] metformin 500 mg tablet TAKE 2 TABLETS BY MOUTH TWICE DAILY metformin 500 mg tablet TAKE 2 TABLETS BY MOUTH TWICE DAILY No metformin 500 mg tablet TAKE 2 TABLETS BY MOUTH TWICE DAILY [facility] Micro Thin Lancets 33 gauge TEST TWICE DAILY Micro Thin Lancets 33 gauge TEST TWICE DAILY No Micro Thin Lancets 33 gauge TEST TWICE DAILY [facility] minocycline 100 mg capsule TAKE 1 CAPSULE BY MOUTH TWICE DAILY minocycline 100 mg capsule TAKE 1 CAPSULE BY MOUTH TWICE DAILY No minocyclin e 100 mg capsule TAKE 1 CAPSULE BY MOUTH TWICE DAILY [facility] pantoprazol e 40 mg tablet,elder yed release TAKE 1 TABLET BY MOUTH EVERY DAY pantoprazol e 40 mg tablet,elder yed release TAKE 1 TABLET BY MOUTH EVERY DAY No pantoprazo le 40 mg tablet,del ayed release TAKE 1 TABLET BY MOUTH EVERY DAY [facility] tadalafil 20 mg tablet TAKE 1 TABLET BY MOUTH EVERY DAY tadalafil 20 mg tablet TAKE 1 TABLET BY MOUTH EVERY DAY No tadalafil 20 mg tablet TAKE 1 TABLET BY MOUTH EVERY DAY [facility] True Metrix Glucose Meter USE DIRECTED True Metrix Glucose Meter USE DIRECTED No True Metrix Glucose Meter USE DIRECTED [facility] True Metrix Glucose Test Strip TEST TWICE DAILY True Metrix Glucose Test Strip TEST TWICE DAILY No True Metrix Glucose Test Strip TEST TWICE DAILY [facility] atorvastati n 20 mg tablet TAKE 1 TABLET BY MOUTH EVERY DAY atorvastati n 20 mg tablet TAKE 1 TABLET BY MOUTH EVERY DAY No atorvastat in 20 mg tablet TAKE 1 TABLET BY MOUTH EVERY DAY [facility] Bydureon BCise 2 mg/0.85 mL subcutaneou s auto-inject or ADMINISTER 0.85 ML UNDER THE SKIN EVERY WEEK Bydureon BCise 2 mg/0.85 mL subcutaneou s auto-inject or ADMINISTER 0.85 ML UNDER THE SKIN EVERY WEEK No Bydureon BCise 2 mg/0.85 mL subcutaneo us auto-injec tor ADMINISTER 0.85 ML UNDER THE SKIN EVERY WEEK [facility] Farxiga 10 mg tablet TAKE 1 TABLET BY MOUTH EVERY DAY Farxiga 10 mg tablet TAKE 1 TABLET BY MOUTH EVERY DAY No Farxiga 10 mg tablet TAKE 1 TABLET BY MOUTH EVERY DAY [facility] FreeStyle Michelle 14 Day [place] USE DIRECTED FreeStyle Michelle 14 Day [place] USE DIRECTED No FreeStyle Michelle 14 Day [place] USE DIRECTED [facility] FreeStyle Michelle 14 Day Sensor kit USE DIRECTED FreeStyle Michelle 14 Day Sensor kit USE DIRECTED No FreeStyle Michelle 14 Day Sensor kit USE DIRECTED [facility] glimepiride 2 mg tablet TAKE 1 TABLET BY MOUTH EVERY DAY glimepiride 2 mg tablet TAKE 1 TABLET BY MOUTH EVERY DAY No glimepirid e 2 mg tablet TAKE 1 TABLET BY MOUTH EVERY DAY [facility] hydrochloro thiazide 25 mg tablet TAKE 1 TABLET BY MOUTH EVERY DAY hydrochloro thiazide 25 mg tablet TAKE 1 TABLET BY MOUTH EVERY DAY No hydrochlor othiazide 25 mg tablet TAKE 1 TABLET BY MOUTH EVERY DAY [facility] Jardiance 25 mg tablet TAKE 1 TABLET BY MOUTH EVERY DAY Jardiance 25 mg tablet TAKE 1 TABLET BY MOUTH EVERY DAY No Jardiance 25 mg tablet TAKE 1 TABLET BY MOUTH EVERY DAY [facility] losartan 50 mg tablet TAKE 1 TABLET BY MOUTH EVERY DAY losartan 50 mg tablet TAKE 1 TABLET BY MOUTH EVERY DAY No losartan 50 mg tablet TAKE 1 TABLET BY MOUTH EVERY DAY [facility] metformin 500 mg tablet TAKE 2 TABLETS BY MOUTH TWICE DAILY metformin 500 mg tablet TAKE 2 TABLETS BY MOUTH TWICE DAILY No metformin 500 mg tablet TAKE 2 TABLETS BY MOUTH TWICE DAILY [facility] Micro Thin Lancets 33 gauge TEST TWICE DAILY Micro Thin Lancets 33 gauge TEST TWICE DAILY No Micro Thin Lancets 33 gauge TEST TWICE DAILY [facility] minocycline 100 mg capsule TAKE 1 CAPSULE BY MOUTH TWICE DAILY minocycline 100 mg capsule TAKE 1 CAPSULE BY MOUTH TWICE DAILY No minocyclin e 100 mg capsule TAKE 1 CAPSULE BY MOUTH TWICE DAILY [facility] pantoprazol e 40 mg tablet,elder yed release TAKE 1 TABLET BY MOUTH EVERY DAY pantoprazol e 40 mg tablet,elder yed release TAKE 1 TABLET BY MOUTH EVERY DAY No pantoprazo le 40 mg tablet,del ayed release TAKE 1 TABLET BY MOUTH EVERY DAY [facility] tadalafil 20 mg tablet TAKE 1 TABLET BY MOUTH EVERY DAY tadalafil 20 mg tablet TAKE 1 TABLET BY MOUTH EVERY DAY No tadalafil 20 mg tablet TAKE 1 TABLET BY MOUTH EVERY DAY [facility] True Metrix Glucose Meter USE DIRECTED True Metrix Glucose Meter USE DIRECTED No True Metrix Glucose Meter USE DIRECTED [facility] True Metrix Glucose Test Strip TEST TWICE DAILY True Metrix Glucose Test Strip TEST TWICE DAILY No True Metrix Glucose Test Strip TEST TWICE DAILY [facility] atorvastati n 20 mg tablet TAKE 1 TABLET BY MOUTH EVERY DAY atorvastati n 20 mg tablet TAKE 1 TABLET BY MOUTH EVERY DAY No atorvastat in 20 mg tablet TAKE 1 TABLET BY MOUTH EVERY DAY [facility] Farxiga 10 mg tablet TAKE 1 TABLET BY MOUTH EVERY DAY Farxiga 10 mg tablet TAKE 1 TABLET BY MOUTH EVERY DAY No Farxiga 10 mg tablet TAKE 1 TABLET BY MOUTH EVERY DAY [facility] FreeStyle Michelle 14 Day [place] USE DIRECTED FreeStyle Michelle 14 Day [place] USE DIRECTED No FreeStyle Michelle 14 Day [place] USE DIRECTED [facility] FreeStyle Michelle 14 Day Sensor kit USE DIRECTED FreeStyle Michelle 14 Day Sensor kit USE DIRECTED No FreeStyle Michelle 14 Day Sensor kit USE DIRECTED [facility] glimepiride 2 mg tablet TAKE 1 TABLET BY MOUTH EVERY DAY glimepiride 2 mg tablet TAKE 1 TABLET BY MOUTH EVERY DAY No glimepirid e 2 mg tablet TAKE 1 TABLET BY MOUTH EVERY DAY [facility] hydrochloro thiazide 25 mg tablet TAKE 1 TABLET BY MOUTH EVERY DAY hydrochloro thiazide 25 mg tablet TAKE 1 TABLET BY MOUTH EVERY DAY No hydrochlor othiazide 25 mg tablet TAKE 1 TABLET BY MOUTH EVERY DAY [facility] losartan 50 mg tablet TAKE 1 TABLET BY MOUTH EVERY DAY losartan 50 mg tablet TAKE 1 TABLET BY MOUTH EVERY DAY No losartan 50 mg tablet TAKE 1 TABLET BY MOUTH EVERY DAY [facility] metformin 500 mg tablet TAKE 2 TABLETS BY MOUTH TWICE DAILY metformin 500 mg tablet TAKE 2 TABLETS BY MOUTH TWICE DAILY No metformin 500 mg tablet TAKE 2 TABLETS BY MOUTH TWICE DAILY [facility] Micro Thin Lancets 33 gauge TEST TWICE DAILY Micro Thin Lancets 33 gauge TEST TWICE DAILY No Micro Thin Lancets 33 gauge TEST TWICE DAILY [facility] pantoprazol e 40 mg tablet,elder yed release TAKE 1 TABLET BY MOUTH EVERY DAY pantoprazol e 40 mg tablet,elder yed release TAKE 1 TABLET BY MOUTH EVERY DAY No pantoprazo le 40 mg tablet,del ayed release TAKE 1 TABLET BY MOUTH EVERY DAY [facility] tadalafil 20 mg tablet TAKE 1 TABLET BY MOUTH EVERY DAY tadalafil 20 mg tablet TAKE 1 TABLET BY MOUTH EVERY DAY No tadalafil 20 mg tablet TAKE 1 TABLET BY MOUTH EVERY DAY [facility] True Metrix Glucose Meter USE DIRECTED True Metrix Glucose Meter USE DIRECTED No True Metrix Glucose Meter USE DIRECTED [facility] True Metrix Glucose Test Strip TEST TWICE DAILY True Metrix Glucose Test Strip TEST TWICE DAILY No True Metrix Glucose Test Strip TEST TWICE DAILY [facility] atorvastati n 20 mg tablet TAKE 1 TABLET BY MOUTH EVERY DAY atorvastati n 20 mg tablet TAKE 1 TABLET BY MOUTH EVERY DAY No atorvastat in 20 mg tablet TAKE 1 TABLET BY MOUTH EVERY DAY [facility] Farxiga 10 mg tablet TAKE 1 TABLET BY MOUTH EVERY DAY Farxiga 10 mg tablet TAKE 1 TABLET BY MOUTH EVERY DAY No Farxiga 10 mg tablet TAKE 1 TABLET BY MOUTH EVERY DAY [facility] FreeStyle Michelle 14 Day [place] USE DIRECTED FreeStyle Michelle 14 Day [place] USE DIRECTED No FreeStyle Michelle 14 Day [place] USE DIRECTED [facility] FreeStyle Michelle 14 Day Sensor kit USE DIRECTED FreeStyle Michelle 14 Day Sensor kit USE DIRECTED No FreeStyle Michelle 14 Day Sensor kit USE DIRECTED [facility] glimepiride 2 mg tablet TAKE 1 TABLET BY MOUTH TWICE DAILY WITH THE TWO LARGEST MEALS glimepiride 2 mg tablet TAKE 1 TABLET BY MOUTH TWICE DAILY WITH THE TWO LARGEST MEALS No glimepirid e 2 mg tablet TAKE 1 TABLET BY MOUTH TWICE DAILY WITH THE TWO LARGEST MEALS [facility] hydrochloro thiazide 25 mg tablet TAKE 1 TABLET BY MOUTH EVERY DAY hydrochloro thiazide 25 mg tablet TAKE 1 TABLET BY MOUTH EVERY DAY No hydrochlor othiazide 25 mg tablet TAKE 1 TABLET BY MOUTH EVERY DAY [facility] losartan 50 mg tablet TAKE 1 TABLET BY MOUTH EVERY DAY losartan 50 mg tablet TAKE 1 TABLET BY MOUTH EVERY DAY No losartan 50 mg tablet TAKE 1 TABLET BY MOUTH EVERY DAY [facility] metformin 500 mg tablet TAKE 2 TABLETS BY MOUTH TWICE DAILY metformin 500 mg tablet TAKE 2 TABLETS BY MOUTH TWICE DAILY No metformin 500 mg tablet TAKE 2 TABLETS BY MOUTH TWICE DAILY [facility] Micro Thin Lancets 33 gauge TEST TWICE DAILY Micro Thin Lancets 33 gauge TEST TWICE DAILY No Micro Thin Lancets 33 gauge TEST TWICE DAILY [facility] Ozempic 0.25 mg or 0.5 mg (2 mg/1.5 mL) subcutaneou s pen injector Inject 0.25 mg every week by subcutaneou s route for 28 days. Ozempic 0.25 mg or 0.5 mg (2 mg/1.5 mL) subcutaneou s pen injector Inject 0.25 mg every week by subcutaneou s route for 28 days. No .25mg Q1W Ozempic 0.25 mg or 0.5 mg (2 mg/1.5 mL) subcutaneo us pen injector Inject 0.25 mg every week by subcutaneo us route for 28 days. [facility] Ozempic 0.25 mg or 0.5 mg (2 mg/3 mL) subcutaneou s pen injector INJECT 0.25 MG UNDER THE SKIN EVERY WEEK FOR 28 DAYS Ozempic 0.25 mg or 0.5 mg (2 mg/3 mL) subcutaneou s pen injector INJECT 0.25 MG UNDER THE SKIN EVERY WEEK FOR 28 DAYS No Ozempic 0.25 mg or 0.5 mg (2 mg/3 mL) subcutaneo us pen injector INJECT 0.25 MG UNDER THE SKIN EVERY WEEK FOR 28 DAYS [facility] pantoprazol e 40 mg tablet,elder yed release TAKE 1 TABLET BY MOUTH EVERY DAY pantoprazol e 40 mg tablet,elder yed release TAKE 1 TABLET BY MOUTH EVERY DAY No pantoprazo le 40 mg tablet,del ayed release TAKE 1 TABLET BY MOUTH EVERY DAY [facility] tadalafil 20 mg tablet TAKE 1 TABLET BY MOUTH EVERY DAY tadalafil 20 mg tablet TAKE 1 TABLET BY MOUTH EVERY DAY No tadalafil 20 mg tablet TAKE 1 TABLET BY MOUTH EVERY DAY [facility] True Metrix Glucose Meter USE DIRECTED True Metrix Glucose Meter USE DIRECTED No True Metrix Glucose Meter USE DIRECTED [facility] True Metrix Glucose Test Strip TEST TWICE DAILY True Metrix Glucose Test Strip TEST TWICE DAILY No True Metrix Glucose Test Strip TEST TWICE DAILY [facility] atorvastati n 20 mg tablet TAKE 1 TABLET BY MOUTH EVERY DAY atorvastati n 20 mg tablet TAKE 1 TABLET BY MOUTH EVERY DAY No atorvastat in 20 mg tablet TAKE 1 TABLET BY MOUTH EVERY DAY [facility] Farxiga 10 mg tablet TAKE 1 TABLET BY MOUTH EVERY DAY Farxiga 10 mg tablet TAKE 1 TABLET BY MOUTH EVERY DAY No Farxiga 10 mg tablet TAKE 1 TABLET BY MOUTH EVERY DAY [facility] FreeStyle Michelle 14 Day [place] USE DIRECTED FreeStyle Michelle 14 Day [place] USE DIRECTED No FreeStyle Michelle 14 Day [place] USE DIRECTED [facility] FreeStyle Michelle 14 Day Sensor kit USE DIRECTED FreeStyle Michelle 14 Day Sensor kit USE DIRECTED No FreeStyle Michelle 14 Day Sensor kit USE DIRECTED [facility] hydrochloro thiazide 25 mg tablet TAKE 1 TABLET BY MOUTH EVERY DAY hydrochloro thiazide 25 mg tablet TAKE 1 TABLET BY MOUTH EVERY DAY No hydrochlor othiazide 25 mg tablet TAKE 1 TABLET BY MOUTH EVERY DAY [facility] insulin glargine (U-100) 100 unit/mL (3 mL) subcutaneou s pen Inject 20 units every day by subcutaneou s route. insulin glargine (U-100) 100 unit/mL (3 mL) subcutaneou s pen Inject 20 units every day by subcutaneou s route. No 20unit( s) Q1D insulin glargine (U-100) 100 unit/mL (3 mL) subcutaneo us pen Inject 20 units every day by subcutaneo us route. [facility] losartan 50 mg tablet TAKE 1 TABLET BY MOUTH EVERY DAY losartan 50 mg tablet TAKE 1 TABLET BY MOUTH EVERY DAY No losartan 50 mg tablet TAKE 1 TABLET BY MOUTH EVERY DAY [facility] Micro Thin Lancets 33 gauge TEST TWICE DAILY Micro Thin Lancets 33 gauge TEST TWICE DAILY No Micro Thin Lancets 33 gauge TEST TWICE DAILY [facility] Ozempic 0.25 mg or 0.5 mg (2 mg/1.5 mL) subcutaneou s pen injector Inject 0.25 mg every week by subcutaneou s route for 28 days. Ozempic 0.25 mg or 0.5 mg (2 mg/1.5 mL) subcutaneou s pen injector Inject 0.25 mg every week by subcutaneou s route for 28 days. No .25mg Q1W Ozempic 0.25 mg or 0.5 mg (2 mg/1.5 mL) subcutaneo us pen injector Inject 0.25 mg every week by subcutaneo us route for 28 days. [facility] Ozempic 0.25 mg or 0.5 mg (2 mg/3 mL) subcutaneou s pen injector INJECT 0.5 MG UNDER THE SKIN EVERY WEEK FOR 28 DAYS Ozempic 0.25 mg or 0.5 mg (2 mg/3 mL) subcutaneou s pen injector INJECT 0.5 MG UNDER THE SKIN EVERY WEEK FOR 28 DAYS No Ozempic 0.25 mg or 0.5 mg (2 mg/3 mL) subcutaneo us pen injector INJECT 0.5 MG UNDER THE SKIN EVERY WEEK FOR 28 DAYS [facility] pantoprazol e 40 mg tablet,elder yed release TAKE 1 TABLET BY MOUTH EVERY DAY pantoprazol e 40 mg tablet,elder yed release TAKE 1 TABLET BY MOUTH EVERY DAY No pantoprazo le 40 mg tablet,del ayed release TAKE 1 TABLET BY MOUTH EVERY DAY [facility] tadalafil 20 mg tablet TAKE 1 TABLET BY MOUTH EVERY DAY tadalafil 20 mg tablet TAKE 1 TABLET BY MOUTH EVERY DAY No tadalafil 20 mg tablet TAKE 1 TABLET BY MOUTH EVERY DAY [facility] True Metrix Glucose Meter USE DIRECTED True Metrix Glucose Meter USE DIRECTED No True Metrix Glucose Meter USE DIRECTED [facility] True Metrix Glucose Test Strip TEST TWICE DAILY True Metrix Glucose Test Strip TEST TWICE DAILY No True Metrix Glucose Test Strip TEST TWICE DAILY [facility] atorvastati n 20 mg tablet TAKE 1 TABLET BY MOUTH EVERY DAY atorvastati n 20 mg tablet TAKE 1 TABLET BY MOUTH EVERY DAY No atorvastat in 20 mg tablet TAKE 1 TABLET BY MOUTH EVERY DAY [facility] Farxiga 10 mg tablet TAKE 1 TABLET BY MOUTH EVERY DAY Farxiga 10 mg tablet TAKE 1 TABLET BY MOUTH EVERY DAY No Farxiga 10 mg tablet TAKE 1 TABLET BY MOUTH EVERY DAY [facility] FreeStyle Michelle 14 Day [place] USE DIRECTED FreeStyle Michelle 14 Day [place] USE DIRECTED No FreeStyle Michelle 14 Day [place] USE DIRECTED [facility] FreeStyle Michelle 14 Day Sensor kit USE DIRECTED FreeStyle Michelle 14 Day Sensor kit USE DIRECTED No FreeStyle Michelle 14 Day Sensor kit USE DIRECTED [facility] hydrochloro thiazide 25 mg tablet TAKE 1 TABLET BY MOUTH EVERY DAY hydrochloro thiazide 25 mg tablet TAKE 1 TABLET BY MOUTH EVERY DAY No hydrochlor othiazide 25 mg tablet TAKE 1 TABLET BY MOUTH EVERY DAY [facility] ibuprofen 600 mg tablet Take 1 tablet 3 times a day by oral route. ibuprofen 600 mg tablet Take 1 tablet 3 times a day by oral route. No 1 TID ibuprofen 600 mg tablet Take 1 tablet 3 times a day by oral route. [facility] losartan 50 mg tablet TAKE 1 TABLET BY MOUTH EVERY DAY losartan 50 mg tablet TAKE 1 TABLET BY MOUTH EVERY DAY No losartan 50 mg tablet TAKE 1 TABLET BY MOUTH EVERY DAY [facility] Micro Thin Lancets 33 gauge TEST TWICE DAILY Micro Thin Lancets 33 gauge TEST TWICE DAILY No Micro Thin Lancets 33 gauge TEST TWICE DAILY [facility] Ozempic 0.25 mg or 0.5 mg (2 mg/1.5 mL) subcutaneou s pen injector Inject 0.25 mg every week by subcutaneou s route for 28 days. Ozempic 0.25 mg or 0.5 mg (2 mg/1.5 mL) subcutaneou s pen injector Inject 0.25 mg every week by subcutaneou s route for 28 days. No .25mg Q1W Ozempic 0.25 mg or 0.5 mg (2 mg/1.5 mL) subcutaneo us pen injector Inject 0.25 mg every week by subcutaneo us route for 28 days. [facility] Ozempic 0.25 mg or 0.5 mg (2 mg/3 mL) subcutaneou s pen injector INJECT 0.5 MG UNDER THE SKIN EVERY WEEK FOR 28 DAYS Ozempic 0.25 mg or 0.5 mg (2 mg/3 mL) subcutaneou s pen injector INJECT 0.5 MG UNDER THE SKIN EVERY WEEK FOR 28 DAYS No Ozempic 0.25 mg or 0.5 mg (2 mg/3 mL) subcutaneo us pen injector INJECT 0.5 MG UNDER THE SKIN EVERY WEEK FOR 28 DAYS [facility] pantoprazol e 40 mg tablet,elder yed release TAKE 1 TABLET BY MOUTH EVERY DAY pantoprazol e 40 mg tablet,elder yed release TAKE 1 TABLET BY MOUTH EVERY DAY No pantoprazo le 40 mg tablet,del ayed release TAKE 1 TABLET BY MOUTH EVERY DAY [facility] Semglee (insulin glargine-yf gn) Pen 100 unit/mL (3 mL) subcutaneou s INJECT 20 UNITS UNDER THE SKIN ONCE DAILY Semglee (insulin glargine-yf gn) Pen 100 unit/mL (3 mL) subcutaneou s INJECT 20 UNITS UNDER THE SKIN ONCE DAILY No Semglee (insulin glargine-y fgn) Pen 100 unit/mL (3 mL) subcutaneo us INJECT 20 UNITS UNDER THE SKIN ONCE DAILY [facility] tadalafil 20 mg tablet TAKE 1 TABLET BY MOUTH EVERY DAY tadalafil 20 mg tablet TAKE 1 TABLET BY MOUTH EVERY DAY No tadalafil 20 mg tablet TAKE 1 TABLET BY MOUTH EVERY DAY [facility] True Metrix Glucose Meter USE DIRECTED True Metrix Glucose Meter USE DIRECTED No True Metrix Glucose Meter USE DIRECTED [facility] True Metrix Glucose Test Strip TEST TWICE DAILY True Metrix Glucose Test Strip TEST TWICE DAILY No True Metrix Glucose Test Strip TEST TWICE DAILY [facility] atorvastati n 20 mg tablet TAKE 1 TABLET BY MOUTH EVERY DAY atorvastati n 20 mg tablet TAKE 1 TABLET BY MOUTH EVERY DAY No atorvastat in 20 mg tablet TAKE 1 TABLET BY MOUTH EVERY DAY [facility] Farxiga 10 mg tablet TAKE 1 TABLET BY MOUTH EVERY DAY Farxiga 10 mg tablet TAKE 1 TABLET BY MOUTH EVERY DAY No Farxiga 10 mg tablet TAKE 1 TABLET BY MOUTH EVERY DAY [facility] hydrochloro thiazide 25 mg tablet TAKE 1 TABLET BY MOUTH EVERY DAY hydrochloro thiazide 25 mg tablet TAKE 1 TABLET BY MOUTH EVERY DAY No hydrochlor othiazide 25 mg tablet TAKE 1 TABLET BY MOUTH EVERY DAY [facility] losartan 50 mg tablet TAKE 1 TABLET BY MOUTH EVERY DAY losartan 50 mg tablet TAKE 1 TABLET BY MOUTH EVERY DAY No losartan 50 mg tablet TAKE 1 TABLET BY MOUTH EVERY DAY [facility] Ozempic 0.25 mg or 0.5 mg (2 mg/1.5 mL) subcutaneou s pen injector Inject 0.25 mg every week by subcutaneou s route for 28 days. Ozempic 0.25 mg or 0.5 mg (2 mg/1.5 mL) subcutaneou s pen injector Inject 0.25 mg every week by subcutaneou s route for 28 days. No .25mg Q1W Ozempic 0.25 mg or 0.5 mg (2 mg/1.5 mL) subcutaneo us pen injector Inject 0.25 mg every week by subcutaneo us route for 28 days. [facility] Ozempic 0.25 mg or 0.5 mg (2 mg/3 mL) subcutaneou s pen injector INJECT 0.5 MG UNDER THE SKIN EVERY WEEK FOR 28 DAYS Ozempic 0.25 mg or 0.5 mg (2 mg/3 mL) subcutaneou s pen injector INJECT 0.5 MG UNDER THE SKIN EVERY WEEK FOR 28 DAYS No Ozempic 0.25 mg or 0.5 mg (2 mg/3 mL) subcutaneo us pen injector INJECT 0.5 MG UNDER THE SKIN EVERY WEEK FOR 28 DAYS [facility] pantoprazol e 40 mg tablet,elder yed release TAKE 1 TABLET BY MOUTH EVERY DAY pantoprazol e 40 mg tablet,elder yed release TAKE 1 TABLET BY MOUTH EVERY DAY No pantoprazo le 40 mg tablet,del ayed release TAKE 1 TABLET BY MOUTH EVERY DAY [facility] Semglee (insulin glargine-yf gn) Pen 100 unit/mL (3 mL) subcutaneou s INJECT 20 UNITS UNDER THE SKIN ONCE DAILY Semglee (insulin glargine-yf gn) Pen 100 unit/mL (3 mL) subcutaneou s INJECT 20 UNITS UNDER THE SKIN ONCE DAILY No Semglee (insulin glargine-y fgn) Pen 100 unit/mL (3 mL) subcutaneo us INJECT 20 UNITS UNDER THE SKIN ONCE DAILY [facility] True Metrix Glucose Meter USE DIRECTED True Metrix Glucose Meter USE DIRECTED No True Metrix Glucose Meter USE DIRECTED [facility] True Metrix Glucose Test Strip TEST TWICE DAILY True Metrix Glucose Test Strip TEST TWICE DAILY No True Metrix Glucose Test Strip TEST TWICE DAILY [facility] atorvastati n 20 mg tablet TAKE 1 TABLET BY MOUTH EVERY DAY atorvastati n 20 mg tablet TAKE 1 TABLET BY MOUTH EVERY DAY No atorvastat in 20 mg tablet TAKE 1 TABLET BY MOUTH EVERY DAY [facility] Farxiga 10 mg tablet TAKE 1 TABLET BY MOUTH EVERY DAY Farxiga 10 mg tablet TAKE 1 TABLET BY MOUTH EVERY DAY No Farxiga 10 mg tablet TAKE 1 TABLET BY MOUTH EVERY DAY [facility] hydrochloro thiazide 25 mg tablet TAKE 1 TABLET BY MOUTH EVERY DAY hydrochloro thiazide 25 mg tablet TAKE 1 TABLET BY MOUTH EVERY DAY No hydrochlor othiazide 25 mg tablet TAKE 1 TABLET BY MOUTH EVERY DAY [facility] losartan 50 mg tablet TAKE 1 TABLET BY MOUTH EVERY DAY losartan 50 mg tablet TAKE 1 TABLET BY MOUTH EVERY DAY No losartan 50 mg tablet TAKE 1 TABLET BY MOUTH EVERY DAY [facility] Ozempic 0.25 mg or 0.5 mg (2 mg/3 mL) subcutaneou s pen injector INJECT 0.5 MG UNDER THE SKIN EVERY WEEK FOR 28 DAYS Ozempic 0.25 mg or 0.5 mg (2 mg/3 mL) subcutaneou s pen injector INJECT 0.5 MG UNDER THE SKIN EVERY WEEK FOR 28 DAYS No Ozempic 0.25 mg or 0.5 mg (2 mg/3 mL) subcutaneo us pen injector INJECT 0.5 MG UNDER THE SKIN EVERY WEEK FOR 28 DAYS [facility] Ozempic 1 mg/dose (4 mg/3 mL) subcutaneou s pen injector Inject 1 mg every week by subcutaneou s route. Ozempic 1 mg/dose (4 mg/3 mL) subcutaneou s pen injector Inject 1 mg every week by subcutaneou s route. No 1mg Q1W Ozempic 1 mg/dose (4 mg/3 mL) subcutaneo us pen injector Inject 1 mg every week by subcutaneo us route. [facility] pantoprazol e 40 mg tablet,elder yed release TAKE 1 TABLET BY MOUTH EVERY DAY pantoprazol e 40 mg tablet,elder yed release TAKE 1 TABLET BY MOUTH EVERY DAY No pantoprazo le 40 mg tablet,del ayed release TAKE 1 TABLET BY MOUTH EVERY DAY [facility] Semglee (insulin glargine-yf gn) Pen 100 unit/mL (3 mL) subcutaneou s INJECT 20 UNITS UNDER THE SKIN ONCE DAILY Semglee (insulin glargine-yf gn) Pen 100 unit/mL (3 mL) subcutaneou s INJECT 20 UNITS UNDER THE SKIN ONCE DAILY No Semglee (insulin glargine-y fgn) Pen 100 unit/mL (3 mL) subcutaneo us INJECT 20 UNITS UNDER THE SKIN ONCE DAILY [facility] True Metrix Glucose Meter USE DIRECTED True Metrix Glucose Meter USE DIRECTED No True Metrix Glucose Meter USE DIRECTED [facility] True Metrix Glucose Test Strip TEST TWICE DAILY True Metrix Glucose Test Strip TEST TWICE DAILY No True Metrix Glucose Test Strip TEST TWICE DAILY [facility] atorvastati n 20 mg tablet TAKE 1 TABLET BY MOUTH EVERY DAY atorvastati n 20 mg tablet TAKE 1 TABLET BY MOUTH EVERY DAY No atorvastat in 20 mg tablet TAKE 1 TABLET BY MOUTH EVERY DAY [facility] Bactrim DS 800 mg-160 mg tablet Take 1 tablet every 12 hours by oral route for 7 days. Bactrim DS 800 mg-160 mg tablet Take 1 tablet every 12 hours by oral route for 7 days. No 1 Q12H Bactrim DS 800 mg-160 mg tablet Take 1 tablet every 12 hours by oral route for 7 days. [facility] Farxiga 10 mg tablet TAKE 1 TABLET BY MOUTH EVERY DAY Farxiga 10 mg tablet TAKE 1 TABLET BY MOUTH EVERY DAY No Farxiga 10 mg tablet TAKE 1 TABLET BY MOUTH EVERY DAY [facility] hydrochloro thiazide 50 mg tablet Take 1 tablet every day by oral route for 30 days. hydrochloro thiazide 50 mg tablet Take 1 tablet every day by oral route for 30 days. No 1 Q1D hydrochlor othiazide 50 mg tablet Take 1 tablet every day by oral route for 30 days. [facility] losartan 50 mg tablet TAKE 1 TABLET BY MOUTH EVERY DAY losartan 50 mg tablet TAKE 1 TABLET BY MOUTH EVERY DAY No losartan 50 mg tablet TAKE 1 TABLET BY MOUTH EVERY DAY [facility] Mounjaro 2.5 mg/0.5 mL subcutaneou s pen injector Inject 0.5 mL every week by subcutaneou s route for 30 days. Mounjaro 2.5 mg/0.5 mL subcutaneou s pen injector Inject 0.5 mL every week by subcutaneou s route for 30 days. No .5mL Q1W Mounjaro 2.5 mg/0.5 mL subcutaneo us pen injector Inject 0.5 mL every week by subcutaneo us route for 30 days. [facility] pantoprazol e 40 mg tablet,elder yed release TAKE 1 TABLET BY MOUTH EVERY DAY pantoprazol e 40 mg tablet,elder yed release TAKE 1 TABLET BY MOUTH EVERY DAY No pantoprazo le 40 mg tablet,del ayed release TAKE 1 TABLET BY MOUTH EVERY DAY [facility] Semglee (insulin glargine-yf gn) Pen 100 unit/mL (3 mL) subcutaneou s INJECT 20 UNITS UNDER THE SKIN ONCE DAILY Semglee (insulin glargine-yf gn) Pen 100 unit/mL (3 mL) subcutaneou s INJECT 20 UNITS UNDER THE SKIN ONCE DAILY No Semglee (insulin glargine-y fgn) Pen 100 unit/mL (3 mL) subcutaneo us INJECT 20 UNITS UNDER THE SKIN ONCE DAILY [facility] True Metrix Glucose Meter USE DIRECTED True Metrix Glucose Meter USE DIRECTED No True Metrix Glucose Meter USE DIRECTED [facility] True Metrix Glucose Test Strip TEST TWICE DAILY True Metrix Glucose Test Strip TEST TWICE DAILY No True Metrix Glucose Test Strip TEST TWICE DAILY [facility] atorvastati n 20 mg tablet TAKE 1 TABLET BY MOUTH EVERY DAY atorvastati n 20 mg tablet TAKE 1 TABLET BY MOUTH EVERY DAY No atorvastat in 20 mg tablet TAKE 1 TABLET BY MOUTH EVERY DAY [facility] Farxiga 10 mg tablet TAKE 1 TABLET BY MOUTH EVERY DAY Farxiga 10 mg tablet TAKE 1 TABLET BY MOUTH EVERY DAY No Farxiga 10 mg tablet TAKE 1 TABLET BY MOUTH EVERY DAY [facility] hydrochloro thiazide 50 mg tablet Take 1 tablet every day by oral route for 30 days. hydrochloro thiazide 50 mg tablet Take 1 tablet every day by oral route for 30 days. No hydrochlor othiazide 50 mg tablet Take 1 tablet every day by oral route for 30 days. [facility] losartan 50 mg tablet TAKE 1 TABLET BY MOUTH EVERY DAY losartan 50 mg tablet TAKE 1 TABLET BY MOUTH EVERY DAY No losartan 50 mg tablet TAKE 1 TABLET BY MOUTH EVERY DAY [facility] Novolin R Regular U-100 Insulin 100 unit/mL injection solution Sliding Scale Novolin R Regular U-100 Insulin 100 unit/mL injection solution Sliding Scale No Novolin R Regular U-100 Insulin 100 unit/mL injection solution Sliding Scale [facility] Ozempic 0.25 mg or 0.5 mg (2 mg/1.5 mL) subcutaneou s pen injector Inject 0.5 mg every week by subcutaneou s route for 28 days. Ozempic 0.25 mg or 0.5 mg (2 mg/1.5 mL) subcutaneou s pen injector Inject 0.5 mg every week by subcutaneou s route for 28 days. No .5mg Q1W Ozempic 0.25 mg or 0.5 mg (2 mg/1.5 mL) subcutaneo us pen injector Inject 0.5 mg every week by subcutaneo us route for 28 days. [facility] pantoprazol e 40 mg tablet,elder yed release TAKE 1 TABLET BY MOUTH EVERY DAY pantoprazol e 40 mg tablet,elder yed release TAKE 1 TABLET BY MOUTH EVERY DAY No pantoprazo le 40 mg tablet,del ayed release TAKE 1 TABLET BY MOUTH EVERY DAY [facility] True Metrix Glucose Meter USE DIRECTED True Metrix Glucose Meter USE DIRECTED No True Metrix Glucose Meter USE DIRECTED [facility] True Metrix Glucose Test Strip TEST TWICE DAILY True Metrix Glucose Test Strip TEST TWICE DAILY No True Metrix Glucose Test Strip TEST TWICE DAILY [facility] atorvastati n 20 mg tablet TAKE 1 TABLET BY MOUTH EVERY DAY atorvastati n 20 mg tablet TAKE 1 TABLET BY MOUTH EVERY DAY No atorvastat in 20 mg tablet TAKE 1 TABLET BY MOUTH EVERY DAY [facility] Farxiga 10 mg tablet TAKE 1 TABLET BY MOUTH EVERY DAY Farxiga 10 mg tablet TAKE 1 TABLET BY MOUTH EVERY DAY No Farxiga 10 mg tablet TAKE 1 TABLET BY MOUTH EVERY DAY [facility] hydrochloro thiazide 50 mg tablet Take 1 tablet every day by oral route for 30 days. hydrochloro thiazide 50 mg tablet Take 1 tablet every day by oral route for 30 days. No hydrochlor othiazide 50 mg tablet Take 1 tablet every day by oral route for 30 days. [facility] losartan 50 mg tablet TAKE 1 TABLET BY MOUTH EVERY DAY losartan 50 mg tablet TAKE 1 TABLET BY MOUTH EVERY DAY No losartan 50 mg tablet TAKE 1 TABLET BY MOUTH EVERY DAY [facility] Novolin R Regular U-100 Insulin 100 unit/mL injection solution Sliding Scale Novolin R Regular U-100 Insulin 100 unit/mL injection solution Sliding Scale No Novolin R Regular U-100 Insulin 100 unit/mL injection solution Sliding Scale [facility] Ozempic 0.25 mg or 0.5 mg (2 mg/1.5 mL) subcutaneou s pen injector Inject 0.5 mg every week by subcutaneou s route for 28 days. Ozempic 0.25 mg or 0.5 mg (2 mg/1.5 mL) subcutaneou s pen injector Inject 0.5 mg every week by subcutaneou s route for 28 days. No .5mg Q1W Ozempic 0.25 mg or 0.5 mg (2 mg/1.5 mL) subcutaneo us pen injector Inject 0.5 mg every week by subcutaneo us route for 28 days. [facility] pantoprazol e 40 mg tablet,elder yed release TAKE 1 TABLET BY MOUTH EVERY DAY pantoprazol e 40 mg tablet,elder yed release TAKE 1 TABLET BY MOUTH EVERY DAY No pantoprazo le 40 mg tablet,del ayed release TAKE 1 TABLET BY MOUTH EVERY DAY [facility] True Metrix Glucose Meter USE DIRECTED True Metrix Glucose Meter USE DIRECTED No True Metrix Glucose Meter USE DIRECTED [facility] True Metrix Glucose Test Strip TEST TWICE DAILY True Metrix Glucose Test Strip TEST TWICE DAILY No True Metrix Glucose Test Strip TEST TWICE DAILY [facility] atorvastati n 20 mg tablet TAKE 1 TABLET BY MOUTH EVERY DAY atorvastati n 20 mg tablet TAKE 1 TABLET BY MOUTH EVERY DAY No atorvastat in 20 mg tablet TAKE 1 TABLET BY MOUTH EVERY DAY [facility] Bydureon BCise 2 mg/0.85 mL subcutaneou s auto-inject or Inject 0.85 mL every week by subcutaneou s route. Bydureon BCise 2 mg/0.85 mL subcutaneou s auto-inject or Inject 0.85 mL every week by subcutaneou s route. No .85mL Q1W Bydureon BCise 2 mg/0.85 mL subcutaneo us auto-injec tor Inject 0.85 mL every week by subcutaneo us route. [facility] Farxiga 10 mg tablet TAKE 1 TABLET BY MOUTH EVERY DAY Farxiga 10 mg tablet TAKE 1 TABLET BY MOUTH EVERY DAY No Farxiga 10 mg tablet TAKE 1 TABLET BY MOUTH EVERY DAY [facility] FreeStyle Michelle 14 Day [place] USE DIRECTED FreeStyle Michelle 14 Day [place] USE DIRECTED No FreeStyle Michelle 14 Day [place] USE DIRECTED [facility] Immunizations Ordered Immunization Name Filled Immunization Name Date Status Comments Source COVID-19 (SARS-COV-2) vaccine, unspecified COVID-19 (SARS-COV-2) vaccine, unspecified 2021-03-29 00:00:00 [facility] SARS-COV-2 (COVID-19) vaccine, UNSPECIFIED SARS-COV-2 (COVID-19) vaccine, UNSPECIFIED 2021-03-29 00:00:00 [facility] COVID-19 (SARS-COV-2) vaccine, unspecified COVID-19 (SARS-COV-2) vaccine, unspecified 2021-03-29 00:00:00 Completed [facility] COVID-19 (SARS-COV-2) vaccine, unspecified COVID-19 (SARS-COV-2) vaccine, unspecified 2021-03-29 00:00:00 Completed [facility] COVID-19 (SARS-COV-2) vaccine, unspecified COVID-19 (SARS-COV-2) vaccine, unspecified 2021-03-29 00:00:00 [facility] COVID-19 (SARS-COV-2) vaccine, unspecified COVID-19 (SARS-COV-2) vaccine, unspecified 2021-03-29 00:00:00 [facility] COVID-19 (SARS-COV-2) vaccine, unspecified COVID-19 (SARS-COV-2) vaccine, unspecified 2021-03-29 00:00:00 Completed [facility] COVID-19 (SARS-COV-2) vaccine, unspecified COVID-19 (SARS-COV-2) vaccine, unspecified 2021-03-29 00:00:00 Completed [facility] COVID-19 (SARS-COV-2) vaccine, unspecified COVID-19 (SARS-COV-2) vaccine, unspecified 2021-03-29 00:00:00 Completed [facility] COVID-19 (SARS-COV-2) vaccine, unspecified COVID-19 (SARS-COV-2) vaccine, unspecified 2021-03-29 00:00:00 Completed [facility] COVID-19 (SARS-COV-2) vaccine, unspecified COVID-19 (SARS-COV-2) vaccine, unspecified 2021-03-29 00:00:00 Completed [facility] COVID-19 (SARS-COV-2) vaccine, unspecified COVID-19 (SARS-COV-2) vaccine, unspecified 2021-03-29 00:00:00 Completed [facility] COVID-19 (SARS-COV-2) vaccine, unspecified COVID-19 (SARS-COV-2) vaccine, unspecified 2021-03-29 00:00:00 Completed [facility] COVID-19 (SARS-COV-2) vaccine, unspecified COVID-19 (SARS-COV-2) vaccine, unspecified 2021-03-29 00:00:00 Completed [facility] COVID-19 (SARS-COV-2) vaccine, unspecified COVID-19 (SARS-COV-2) vaccine, unspecified 2021-03-29 00:00:00 Completed [facility] COVID-19 (SARS-COV-2) vaccine, unspecified COVID-19 (SARS-COV-2) vaccine, unspecified 2021-03-29 00:00:00 Completed [facility] COVID-19 (SARS-COV-2) vaccine, unspecified COVID-19 (SARS-COV-2) vaccine, unspecified 2021-03-29 00:00:00 [facility] influenza, injectable, quadrivalent influenza, injectable, quadrivalent 2020-07-09 00:00:00 [facility] influenza, injectable, quadrivalent influenza, injectable, quadrivalent 2020-07-09 00:00:00 [facility] influenza, injectable, quadrivalent influenza, injectable, quadrivalent 2020-07-09 00:00:00 [facility] influenza, injectable, quadrivalent influenza, injectable, quadrivalent 2020-07-09 00:00:00 [facility] influenza, injectable, quadrivalent influenza, injectable, quadrivalent 2020-07-09 00:00:00 [facility] influenza, injectable, quadrivalent influenza, injectable, quadrivalent 2020-07-09 00:00:00 [facility] influenza, injectable, quadrivalent influenza, injectable, quadrivalent 2020-07-09 00:00:00 [facility] influenza, injectable, quadrivalent influenza, injectable, quadrivalent 2020-07-09 00:00:00 [facility] influenza, injectable, quadrivalent influenza, injectable, quadrivalent 2020-07-09 00:00:00 [facility] influenza, injectable, quadrivalent influenza, injectable, quadrivalent 2020-07-09 00:00:00 [facility] influenza, injectable, quadrivalent influenza, injectable, quadrivalent 2020-07-09 00:00:00 [facility] influenza, injectable, quadrivalent influenza, injectable, quadrivalent 2020-07-09 00:00:00 [facility] influenza, injectable, quadrivalent influenza, injectable, quadrivalent 2020-07-09 00:00:00 [facility] influenza, injectable, quadrivalent influenza, injectable, quadrivalent 2020-07-09 00:00:00 [facility] influenza, injectable, quadrivalent influenza, injectable, quadrivalent 2020-07-09 00:00:00 [facility] influenza, injectable, quadrivalent influenza, injectable, quadrivalent 2020-07-09 00:00:00 [facility] influenza, injectable, quadrivalent influenza, injectable, quadrivalent 2020-07-09 00:00:00 [facility] influenza, injectable, quadrivalent influenza, injectable, quadrivalent 2020-07-09 00:00:00 [facility] influenza, injectable, quadrivalent influenza, injectable, quadrivalent 2020-07-09 00:00:00 [facility] influenza, injectable, quadrivalent influenza, injectable, quadrivalent 2020-07-09 00:00:00 [facility] influenza, injectable, quadrivalent influenza, injectable, quadrivalent 2020-07-09 00:00:00 [facility] COVID-19 (SARS-COV-2) vaccine, unspecified COVID-19 (SARS-COV-2) vaccine, unspecified Unknown Completed [facility] influenza, injectable, quadrivalent influenza, injectable, quadrivalent Unknown Completed [facility] COVID-19 (SARS-COV-2) vaccine, unspecified COVID-19 (SARS-COV-2) vaccine, unspecified Unknown Completed [facility] influenza, injectable, quadrivalent influenza, injectable, quadrivalent Unknown Completed [facility] COVID-19 (SARS-COV-2) vaccine, unspecified COVID-19 (SARS-COV-2) vaccine, unspecified Unknown Completed [facility] influenza, injectable, quadrivalent influenza, injectable, quadrivalent Unknown Completed [facility] COVID-19 (SARS-COV-2) vaccine, unspecified COVID-19 (SARS-COV-2) vaccine, unspecified Unknown Completed [facility] influenza, injectable, quadrivalent influenza, injectable, quadrivalent Unknown Completed [facility] COVID-19 (SARS-COV-2) vaccine, unspecified COVID-19 (SARS-COV-2) vaccine, unspecified Unknown Completed [facility] influenza, injectable, quadrivalent influenza, injectable, quadrivalent Unknown Completed [facility] Vital Signs Vital Name Observation Time Observation Value Comments S ource Height 2023-12-19 00:00:00 68 [in_i] [facility] Body Weight 2023-12-19 00:00:00 3712 [oz_av] [facility] BMI (Body Mass Index) 2023-12-19 00:00:00 35.3 kg/m2 [facility] BP Systolic 2023-12-19 00:00:00 122 mm[Hg] [facility] BP Diastolic 2023-12-19 00:00:00 78 mm[Hg] [facility] BMI (Body Mass Index) 2023-09-18 00:00:00 31.9 kg/m2 [facility] BP Systolic 2023-09-18 00:00:00 110 mm[Hg] [facility] Height 2023-09-18 00:00:00 68 [in_i] [facility] Body Weight 2023-09-18 00:00:00 3360 [oz_av] [facility] BP Diastolic 2023-09-18 00:00:00 62 mm[Hg] [facility] BP Diastolic 2023-07-03 00:00:00 62 mm[Hg] [facility] Height 2023-07-03 00:00:00 68 [in_i] [facility] Body Weight 2023-07-03 00:00:00 3408 [oz_av] [facility] BP Systolic 2023-07-03 00:00:00 108 mm[Hg] [facility] BMI (Body Mass Index) 2023-07-03 00:00:00 32.4 kg/m2 [facility] Body Weight 2023-06-28 00:00:00 3376 [oz_av] [facility] Height 2023-06-28 00:00:00 68 [in_i] [facility] BP Diastolic 2023-06-28 00:00:00 68 mm[Hg] [facility] BP Systolic 2023-06-28 00:00:00 122 mm[Hg] [facility] BMI (Body Mass Index) 2023-06-28 00:00:00 32.1 kg/m2 [facility] Body Weight 2023-05-25 00:00:00 3424 [oz_av] [facility] Height 2023-05-25 00:00:00 68 [in_i] [facility] BP Diastolic 2023-05-25 00:00:00 70 mm[Hg] [facility] BP Systolic 2023-05-25 00:00:00 124 mm[Hg] [facility] BMI (Body Mass Index) 2023-05-25 00:00:00 32.5 kg/m2 [facility] BP Diastolic 2023-04-06 00:00:00 74 mm[Hg] [facility] Height 2023-04-06 00:00:00 68 [in_i] [facility] BMI (Body Mass Index) 2023-04-06 00:00:00 33.8 kg/m2 [facility] BP Systolic 2023-04-06 00:00:00 124 mm[Hg] [facility] Body Weight 2023-04-06 00:00:00 3552 [oz_av] [facility] BP Diastolic 2023-03-24 00:00:00 86 mm[Hg] [facility] Height 2023-03-24 00:00:00 68 [in_i] [facility] BMI (Body Mass Index) 2023-03-24 00:00:00 34.1 kg/m2 [facility] BP Systolic 2023-03-24 00:00:00 124 mm[Hg] [facility] Body Weight 2023-03-24 00:00:00 3584 [oz_av] [facility] BP Diastolic 2022-12-29 00:00:00 74 mm[Hg] [facility] Height 2022-12-29 00:00:00 68 [in_i] [facility] BMI (Body Mass Index) 2022-12-29 00:00:00 35.4 kg/m2 [facility] BP Systolic 2022-12-29 00:00:00 118 mm[Hg] [facility] Body Weight 2022-12-29 00:00:00 3728 [oz_av] [facility] BP Diastolic 2022-09-27 00:00:00 74 mm[Hg] [facility] Height 2022-09-27 00:00:00 68 [in_i] [facility] BMI (Body Mass Index) 2022-09-27 00:00:00 35.9 kg/m2 [facility] BP Systolic 2022-09-27 00:00:00 116 mm[Hg] [facility] Body Weight 2022-09-27 00:00:00 3776 [oz_av] [facility] BP Diastolic 2022-08-15 00:00:00 78 mm[Hg] [facility] Height 2022-08-15 00:00:00 68 [in_i] [facility] BMI (Body Mass Index) 2022-08-15 00:00:00 34.8 kg/m2 [facility] BP Systolic 2022-08-15 00:00:00 118 mm[Hg] [facility] Body Weight 2022-08-15 00:00:00 3664 [oz_av] [facility] BP Diastolic 2022-08-11 00:00:00 84 mm[Hg] [facility] Height 2022-08-11 00:00:00 68 [in_i] [facility] BMI (Body Mass Index) 2022-08-11 00:00:00 34.8 kg/m2 [facility] BP Systolic 2022-08-11 00:00:00 120 mm[Hg] [facility] Body Weight 2022-08-11 00:00:00 3664 [oz_av] [facility] BP Diastolic 2022-06-28 00:00:00 80 mm[Hg] [facility] Height 2022-06-28 00:00:00 68 [in_i] [facility] BMI (Body Mass Index) 2022-06-28 00:00:00 35.7 kg/m2 [facility] BP Systolic 2022-06-28 00:00:00 122 mm[Hg] [facility] Body Weight 2022-06-28 00:00:00 3760 [oz_av] [facility] Height 2022-06-07 00:00:00 68 [in_i] [facility] BP Diastolic 2022-03-22 00:00:00 78 mm[Hg] [facility] Height 2022-03-22 00:00:00 68 [in_i] [facility] BMI (Body Mass Index) 2022-03-22 00:00:00 34.1 kg/m2 [facility] BP Systolic 2022-03-22 00:00:00 122 mm[Hg] [facility] Body Weight 2022-03-22 00:00:00 3584 [oz_av] [facility] BP Diastolic 2022-03-03 00:00:00 74 mm[Hg] [facility] Height 2022-03-03 00:00:00 68 [in_i] [facility] BMI (Body Mass Index) 2022-03-03 00:00:00 33.5 kg/m2 [facility] BP Systolic 2022-03-03 00:00:00 120 mm[Hg] [facility] Body Weight 2022-03-03 00:00:00 3520 [oz_av] [facility] BP Diastolic 2022-02-28 00:00:00 74 mm[Hg] [facility] Height 2022-02-28 00:00:00 68 [in_i] [facility] BMI (Body Mass Index) 2022-02-28 00:00:00 33.5 kg/m2 [facility] BP Systolic 2022-02-28 00:00:00 112 mm[Hg] [facility] Body Weight 2022-02-28 00:00:00 3520 [oz_av] [facility] BP Diastolic 2022-02-25 00:00:00 62 mm[Hg] [facility] Height 2022-02-25 00:00:00 68 [in_i] [facility] BMI (Body Mass Index) 2022-02-25 00:00:00 33.3 kg/m2 [facility] BP Systolic 2022-02-25 00:00:00 110 mm[Hg] [facility] Body Weight 2022-02-25 00:00:00 3504 [oz_av] [facility] BP Diastolic 2021-12-16 00:00:00 82 mm[Hg] [facility] Height 2021-12-16 00:00:00 68 [in_i] [facility] BMI (Body Mass Index) 2021-12-16 00:00:00 33.9 kg/m2 [facility] BP Systolic 2021-12-16 00:00:00 124 mm[Hg] [facility] Body Weight 2021-12-16 00:00:00 3568 [oz_av] [facility] BP Diastolic 2021-10-07 00:00:00 85 mm[Hg] [facility] Height 2021-10-07 00:00:00 68 [in_i] [facility] BMI (Body Mass Index) 2021-10-07 00:00:00 34.2 kg/m2 [facility] BP Systolic 2021-10-07 00:00:00 121 mm[Hg] [facility] Body Weight 2021-10-07 00:00:00 3600 [oz_av] [facility] BP Diastolic 2021-09-16 00:00:00 86 mm[Hg] [facility] Height 2021-09-16 00:00:00 68 [in_i] [facility] BMI (Body Mass Index) 2021-09-16 00:00:00 36.3 kg/m2 [facility] BP Systolic 2021-09-16 00:00:00 132 mm[Hg] [facility] Body Weight 2021-09-16 00:00:00 3824 [oz_av] [facility] Systolic blood pressure 2021-04-08 13:29:00 133 mm[Hg] [facility] Diastolic blood pressure 2021-04-08 13:29:00 83 mm[Hg] [facility] Heart rate 2021-04-08 13:29:00 97 /min [facility] Body temperature 2021-04-08 13:29:00 36.28 [place] [facility] Respiratory rate 2021-04-08 13:29:00 16 /min [facility] Body height 2021-04-08 13:29:00 172.7 cm [facility] Body weight 2021-04-08 13:29:00 104.599 kg [facility] BMI 2021-04-08 13:29:00 35.06 kg/m2 [facility] Oxygen saturation in Arterial blood by Pulse oximetry 2021-04-08 13:29:00 96 /min [facility] Systolic blood pressure 2021-04-05 21:35:00 139 mm[Hg] [facility] Diastolic blood pressure 2021-04-05 21:35:00 79 mm[Hg] [facility] Heart rate 2021-04-05 21:35:00 78 /min [facility] Body temperature 2021-04-05 21:35:00 36.56 Marycruz [facility] Respiratory rate 2021-04-05 21:35:00 18 /min [facility] Body height 2021-04-05 21:35:00 172.7 cm [facility] Body weight 2021-04-05 21:35:00 104.962 kg [facility] BMI 2021-04-05 21:35:00 35.18 kg/m2 [facility] Oxygen saturation in Arterial blood by Pulse oximetry 2021-04-05 21:35:00 97 /min [facility] BP Diastolic 2021-04-01 00:00:00 60 mm[Hg] [facility] Height 2021-04-01 00:00:00 68 [in_i] [facility] BMI (Body Mass Index) 2021-04-01 00:00:00 35.7 kg/m2 [facility] BP Systolic 2021-04-01 00:00:00 102 mm[Hg] [facility] Body Weight 2021-04-01 00:00:00 3760 [oz_av] [facility] BP Diastolic 2021-03-29 00:00:00 72 mm[Hg] [facility] Height 2021-03-29 00:00:00 68 [in_i] [facility] BMI (Body Mass Index) 2021-03-29 00:00:00 35.7 kg/m2 [facility] BP Systolic 2021-03-29 00:00:00 113 mm[Hg] [facility] Body Weight 2021-03-29 00:00:00 3760 [oz_av] [facility] BP Diastolic 2020-12-14 00:00:00 88 mm[Hg] [facility] Height 2020-12-14 00:00:00 68 [in_i] [facility] BMI (Body Mass Index) 2020-12-14 00:00:00 33.8 kg/m2 [facility] BP Systolic 2020-12-14 00:00:00 140 mm[Hg] [facility] Body Weight 2020-12-14 00:00:00 3552 [oz_av] [facility] BP Diastolic 2020-11-09 00:00:00 104 mm[Hg] [facility] Height 2020-11-09 00:00:00 68 [in_i] [facility] BMI (Body Mass Index) 2020-11-09 00:00:00 35.4 kg/m2 [facility] BP Systolic 2020-11-09 00:00:00 158 mm[Hg] [facility] Body Weight 2020-11-09 00:00:00 3728 [oz_av] [facility] Procedures Procedure Date / Time Performed Performing Clinicia n Source EXTERNAL PROVIDER RECORDS 2021-04-13 05:01:00 Doctor Unassigned, [place] [facility] POCT URINALYSIS AUTO 2021-04-08 13:26:00 Shade Lee [facility] REQUEST TO RESTRICT PHI FROM [employer] 2021-04-08 05:01:00 Doctor Unassigned, [place] [facility] POCT URINALYSIS AUTO 2021-04-05 21:32:00 Shade Lee daniel [facility] CT, abdomen + pelvis, w/wo contrast 2021-03-29 00:00:00 [facility] Hernia Repair [facility] Procedure on Knee [facility] Plan of Care Planned Activity Planned Date Details Comments Source Diagnostic Test Pending 2023-12-19 00:00:00 CMP, serum or plasma [code = CMP, serum or plasma] [facility] Diagnostic Test Pending 2023-12-19 00:00:00 HbA1c (hemoglobin A1c), blood [code = HbA1c (hemoglobin A1c), blood] [facility] Future Appointment 2024-09-18 00:00:00 Elisabeth Gallagher, [place] [address] [facility] Future Appointment 2024-03-19 00:00:00 Elisabeth Gallagher, [place] [address] [facility] Instructions [facility] Encounters Start Date/Time End Date/Time Encounter Type Admission Type Attending Clinicians Care Facility Care Department Encounter ID Source 2023-12-19 00:00:00 2023-12-19 00:00:00 Outpatient [facility]SE[facility] [id number] [facility] 2023-12-19 00:00:00 2023-12-19 00:00:00 ADY Gallagher: Ese Arciniega, [place] [address] , Ph. [facility] [place] [facility], [address]. [place] [id number] [facility] 2023-10-14 00:00:00 2023-10-14 00:00:00 Outpatient [facility] [id number] [facility] 2023-09-18 00:00:00 2023-09-18 00:00:00 Outpatient BRADEN_F [facility] [id number] [facility] 2023-09-18 00:00:00 2023-09-18 00:00:00 MIMA Wade-C: Ese Arciniega, [place] [address] , Ph. [phone] [facility], [address] [place] [id number] [facility] 2023-07-03 00:00:00 2023-07-03 00:00:00 Outpatient ERICKSON_R [facility] [id number] [facility] 2023-07-03 00:00:00 2023-07-03 00:00:00 LEE WadeC: Ese Arciniega, [place] [address] , Ph. [facility], DR. [place] [id number] [facility] 2023-06-28 00:00:00 2023-06-28 00:00:00 Outpatient ERCAROL_R [facility] [id number] [facility] 2023-06-28 00:00:00 2023-06-28 00:00:00 LEE WadeC: Ese Arciniega, [place] [address] , Ph. [phone] [facility], DR. [place] [id number] [facility] 2023-05-25 00:00:00 2023-05-25 00:00:00 Neo Lawrence, : Ese Arciniega, [place] [address] , Ph. [facility], DR[facility] [place] [id number] [facility] 2023-05-19 00:00:00 2023-05-19 00:00:00 Outpatient [facility] [id number] [facility] 2023-05-19 00:00:00 2023-05-19 00:00:00 Outpatient [facility] [id number] [facility] 2023-04-06 00:00:00 2023-04-06 00:00:00 Neo Lawrence, DO: [address], [place] [address] , Ph. [facility], DR[facility] [place] [id number] [facility] 2023-04-05 00:00:00 2023-04-05 00:00:00 Outpatient [facility] [id number] [facility] 2023-04-05 00:00:00 2023-04-05 00:00:00 Outpatient [facility] [id number] [facility] 2023-03-24 00:00:00 2023-03-24 00:00:00 Outpatient [facility] [id number] [facility] 2023-03-24 00:00:00 2023-03-24 00:00:00 Neo Lawrence, DO: [address], [place] [address] , Ph. [phone] [facility], DR[facility] [place] [id number] [facility] 2023-02-21 05:59:00 2023-02-22 14:56:00 Inpatient Jackelin Bella [facility] [id number] 65 [facility] 2022-12-29 00:00:00 2022-12-29 00:00:00 Outpatient [facility] [id number] [facility] 2022-12-29 00:00:00 2022-12-29 00:00:00 Neo Lawrence, DO: [address], [place] [address] , Ph. [facility], DR[facility] [place] [id number] [facility] 2022-11-07 00:00:00 2022-11-07 00:00:00 Outpatient [facility] [id number] [facility] 2022-10-03 00:00:00 2022-10-03 00:00:00 Outpatient [facility] [id number] [facility] 2022-09-27 00:00:00 2022-09-27 00:00:00 Outpatient [facility] [id number] [facility] 2022-09-27 00:00:00 2022-09-27 00:00:00 Neo Lawrence, DO: [address] [place] [address] , Ph. [phone] [facility], DR[facility] [place] [id number] [facility] 2022-08-30 00:00:00 2022-08-30 00:00:00 Outpatient [facility] [id number] [facility] 2022-08-15 00:00:00 2022-08-15 00:00:00 Outpatient [facility] [id number] [facility] 2022-08-15 00:00:00 2022-08-15 00:00:00 Neo Lawrence, DO: [address], [place] [address] , Ph. [facility], DR[facility] [place] [id number] [facility] 2022-08-11 00:00:00 2022-08-11 00:00:00 Outpatient [facility] [id number] [facility] 2022-08-11 00:00:00 2022-08-11 00:00:00 Neo Lawrence, DO: [address], [place] [address] , Ph. [facility], DR[facility] [place] [id number] [facility] 2022-07-12 00:00:00 2022-07-12 00:00:00 Outpatient [facility] [id number] [facility] 2022-06-28 00:00:00 2022-06-28 00:00:00 Outpatient ERVASILEON_R [facility] [id number] [facility] 2022-06-28 00:00:00 2022-06-28 00:00:00 Neo Lawrence, DO: [address], [place] [address] , Ph. [facility], DR[facility] [place] [id number] [facility] 2022-06-07 00:00:00 2022-06-07 00:00:00 Outpatient [facility] [id number] [facility] 2022-06-07 00:00:00 2022-06-07 00:00:00 Outpatient Neo Lawrence [facility] [id number] 2022-06-07 00:00:00 2022-06-07 00:00:00 Neo Lawrence, DO: [address], [place] [address] , Ph. [phone] [facility], DR[facility] [place] [id number] [facility] 2022-05-03 02:44:00 2022-05-03 02:44:00 Outpatient [facility] [id number] [facility] 2022-03-30 04:24:00 2022-03-30 04:24:00 Outpatient [facility] [id number] [facility] 2022-03-22 02:45:00 2022-03-22 02:45:00 Outpatient [facility] [id number] [facility] 2022-03-22 00:00:00 2022-03-22 00:00:00 Neo Lawrence, DO: [address], [place] [address] , Ph. [facility], DR[facility] [place] [id number] [facility] 2022-03-22 00:00:00 2022-03-22 00:00:00 Outpatient Neo Lawrence [facility] [id number] 2022-03-03 09:58:00 2022-03-03 09:58:00 Outpatient [facility] [id number] [facility] 2022-03-03 00:00:00 2022-03-03 00:00:00 Neo Lawrence, DO: [address] [place] [address] , Ph. [phone] [facility], [address] [place] [id number] [facility] 2022-03-03 00:00:00 2022-03-03 00:00:00 Outpatient Neo Lawrence [facility] [id number] 2022-02-28 10:01:00 2022-02-28 10:01:00 Outpatient MELINDA_R [facility] [id number] [facility] 2022-02-28 00:00:00 2022-02-28 00:00:00 Neo Lawrence, DO: [address] [place] [address] , Ph. [facility], DR[facility] [place] [id number] [facility] 2022-02-28 00:00:00 2022-02-28 00:00:00 Outpatient Neo Lawrence [facility] [id number] 2022-02-25 09:45:00 2022-02-25 09:45:00 Outpatient ERCAROL_R [facility] [id number] [facility] 2022-02-25 00:00:00 2022-02-25 00:00:00 Neo Lawrence, DO: [address] [place] [address] , Ph. [phone] [facility], DR[facility] [place] [id number] [facility] 2022-02-25 00:00:00 2022-02-25 00:00:00 Outpatient Neo Lawrence [facility] [id number] 2021-12-30 07:00:00 2021-12-30 07:00:00 Outpatient [facility] [id number] [facility] 2021-12-16 09:54:00 2021-12-16 09:54:00 Outpatient [facility] [id number] [facility] 2021-12-16 00:00:00 2021-12-16 00:00:00 Neo Lawrence, DO: [address] [place] [address] , Ph. [facility], DR[facility] [place] [id number] [facility] 2021-12-16 00:00:00 2021-12-16 00:00:00 Outpatient Neo Lawrence [facility] [id number] 12:42:00 2021-10-07 12:42:00 Outpatient ERVASILEJEANMARIE_R [facility] [id number] [facility] 2021-10-07 00:00:00 2021-10-07 00:00:00 Noe Lawrence, DO: [address] [place] [address] , Ph. [facility], DR[facility] [place] [id number] [facility] 2021-10-07 00:00:00 2021-10-07 00:00:00 Outpatient Neo Lawrence [facility] [id number] 2021-09-16 04:43:00 2021-09-16 04:43:00 Outpatient [facility] [id number] [facility] 2021-09-16 00:00:00 2021-09-16 00:00:00 Neo Lawrence, DO: [address], [address], [place] [address] , Ph. [phone] [facility], DR. [place] [id number] [facility] 2021-09-16 00:00:00 2021-09-16 00:00:00 Outpatient Neo Lawrence [facility] [id number] 2021-06-08 01:12:00 2021-06-08 01:12:00 Outpatient ERVASILEON_R [facility] [id number] [facility] 2021-06-01 13:30:00 2021-06-01 13:30:00 Outpatient GLEN KWAN [facility] [id number] [facility] 2021-05-04 14:45:00 2021-05-04 14:45:00 Outpatient GLEN KWAN [facility] [id number] [facility] 2021-05-04 12:57:00 2021-05-04 12:57:00 Outpatient ERVASILEON_R [facility] [id number] [facility] 2021-04-22 15:52:05 2021-04-22 23:59:00 Hospital Encounter Francisca Marcelino [facility] [id number] [facility] 2021-04-22 15:52:05 2021-04-22 15:52:05 Outpatient FRANCISCA RASMUSSEN [facility] [id number] [facility] 2021-04-13 00:00:00 2021-04-13 00:00:00 Orders Only Doctor Unassigned, [place] [facility] 1.284.114 [id number] [facility] 2021-04-09 00:00:00 2021-04-09 00:00:00 Case Management Francisca Marcelino [facility] 1.284.114 [id number] [id number] [facility] 2021-04-08 08:13:45 2021-04-08 09:50:16 Office Visit Aida Lee, Charles Surg Spec Procedure [facility] 1.840.114 [id number] [id number] [id number] [facility] 2021-04-08 08:30:00 2021-04-08 08:30:00 Outpatient R AIDA LEE [facility] [id number] [facility] 2021-04-08 00:00:00 2021-04-08 00:00:00 Orders Only Doctor Unassigned, [place] [facility] 1.840.114 [id number] [id number] [id number] [facility] 2021-04-05 17:19:25 2021-04-05 17:34:25 Pantograph Operator Visit Pob, Adc Lab Main Aida Lee [facility] 1.2.840.114 [id number] [id number] [id number] [facility] 2021-04-05 15:34:51 2021-04-05 17:05:36 Office Visit Aida Lee [facility] [id number] [id number] 4.2.7.2.686 [id number] [facility] 2021-04-05 15:30:00 2021-04-05 15:30:00 Outpatient AIDA ALLISON [facility] [id number] [facility] 2021-04-01 11:38:00 2021-04-01 11:38:00 Outpatient [facility] [id number] [facility] 2021-04-01 00:00:00 2021-04-01 00:00:00 Neo Lawrence, DO: [address] [place] [address] , Ph. [phone] [facility], [address] [place] [id number] [facility] 2021-04-01 00:00:00 2021-04-01 00:00:00 Outpatient Neo Lawrence [facility] [id number] 2021-03-30 01:21:00 2021-03-30 01:21:00 Outpatient [facility]SON[facility] [id number] [facility] 2021-03-29 10:21:00 2021-03-29 10:21:00 Outpatient [facility] [id number] [facility] 2021-03-29 00:00:00 2021-03-29 00:00:00 Neo Lawrence, DO: [address] [place] [address] , Ph. [facility], [facility] [place] [id number] [facility] 2021-03-29 00:00:00 2021-03-29 00:00:00 Outpatient Neo Lawrence Jesse [facility] [id number] 2021-03-20 06:31:00 2021-03-20 06:31:00 Outpatient [facility] [id number] [facility] 2021-02-14 01:05:00 2021-02-14 01:05:00 Outpatient [facility] [id number] [facility] 2021-01-10 01:03:00 2021-01-10 01:03:00 Outpatient [facility] [id number] [facility] 2020-12-14 09:48:00 2020-12-14 09:48:00 Outpatient [facility] [id number] [facility] 2020-12-14 00:00:00 2020-12-14 00:00:00 Neo Lawrence, DO: [address] [place] [address] , Ph. [facility], [facility] [place] [id number] [facility] 2020-12-14 00:00:00 2020-12-14 00:00:00 Outpatient Neo Lawrence [facility] [id number] 2020-11-16 02:43:00 2020-11-16 02:43:00 Outpatient [facility]SON[facility] [id number] [facility] 2020-11-16 00:00:00 2020-11-16 00:00:00 Neo Lawrence, DO: [address] [place] [address] , Ph. [facility], [facility] [place] [id number] [facility] 2020-11-12 12:10:00 2020-11-12 12:10:00 Outpatient MELINDA_R [facility] [id number] [facility] 2020-11-09 03:33:00 2020-11-09 03:33:00 Outpatient ERCAROL_R [facility] [id number] [facility] 2020-11-09 00:00:00 2020-11-09 00:00:00 Outpatient Neo Lawrence [facility] [id number] 2020-11-09 00:00:00 2020-11-09 00:00:00 Outpatient Neo Lawrence [facility] [id number] 2020-11-09 00:00:00 2020-11-09 00:00:00 Neo Lawrence, DO: [address] , [place] [address] , Ph. [facility], DR[facility] [place] [id number] [facility] Results Test Description Test Time Test Comments Results Result Co mments Source [id number] 20:43:00* Test Item Value Reference Range Interpretation Comme nts GLUBED (test code = GLUBED) 230 mg/dL 70-110 H [id number] 11:45:00* Test Item Value Reference Range Interpretation Comme nts GLUBED (test code = GLUBED) 109 mg/dL 70-110 N [id number] 08:28:00* Test Item Value Reference Range Interpretation Comme nts GLUBED (test code = GLUBED) 126 mg/dL 70-110 H CBC W/AUTO [id number] 07:09:00* Test Item Value Reference Range Interpretation Comme nts WHITE BLOOD CELL (test code = WBC) 3.2 K/mm3 4.5-11.0 L RED BLOOD CELL (test code = RBC) 4.91 M/mm3 4.40-5.90 N HEMOGLOBIN (test code = HGB) 13.5 gm/dL 13.0-17.0 N HEMATOCRIT (test code = HCT) 43.1 % 36.0-48.0 N MEAN CELL VOLUME (test code = MCV) 87.8 UM3 80.0-94.0 N MEAN CELL HGB (test code = MCH) 27.5 UUG 25.5-32.5 N MEAN CELL HGB CONCETRATION (test code = MCHC) 31.3 gm/dL 29.0-35.5 N RED CELL DISTRIBUTION WIDTH (test code = RDW) 14.4 % 11.5-15.0 N RED CELL DISTRIBUTION WIDTH SD (test code = RDW-SD) 45.8 fL 34.8-50.2 N PLATELET COUNT (test code = PLT) 151 K/mm3 150-400 N MEAN PLATELET VOLUME (test c ode = MPV) 10.0 fl 7.4-10.4 N NEUTROPHIL % (test code = NT%) 61.5 % 49.0-76.0 N IMMATURE GRANULOCYTE % (test code = IG%) 0.3 % 0.0-0.4 N LYMPHOCYTE % (test code = LY%) 18.5 % 23.0-38.0 L MONOCYTE % (test code = MO%) 10.8 % 1.0-10.0 H EOSINOPHIL % (test code = EO%) 8.3 % 1.0-5.0 H BASOPHIL % (test code = BA%) 0.6 % 0.0-1.0 N NUCLEATED RBC % (test code = NRBC%) 0.0 % 0.0-0.1 N NEUTROPHIL # (test code = NT#) 2.0 K/mm3 2.4-6.3 L IMMATURE GRANULOCYTE # (test code = IG#) 0.01 x10 3/uL 0.00-0.07 N LYMPHOCYTE # (test code = LY#) 0.6 K/mm3 1.2-4.0 L MONOCYTE # (test code = MO#) 0.4 K/mm3 0.0-0.6 N EOSINOPHIL # (test code = EO#) 0.3 K/MM3 0.0-0.7 N BASOPHIL # (test code = BA#) 0.0 K/mm3 0.0-0.2 N NUCLEATED RBC # (test code = NRBC#) 0.00 X10 3uL 0.00-0.01 N BASIC METABOLIC [id number] 07:03:00* Test Item Value Reference Range Interpretation Comme nts SODIUM (test code = NA) 135 mmol/l 134.0-147.0 N POTASSIUM (test code = K) 3.5 mmol/L 3.6-5.2 L CHLORIDE (test code = CL) 101 mmol/l 98.0-107.0 N CARBON DIOXIDE (test code = CO2) 29.6 mmol/l 21.0-33.0 N ANION GAP (test code = GAP) 7.9 0-20 N GLUCOSE (test code = GLU) 125 mg/dl 70.0-110.0 H BLOOD UREA NITROGEN (test code = BUN) 15 mg/dl 7.0-18.0 N GLOMERULAR FILTRATION RATE (test code = GFR) 81 mL/min The Glomerular Filtration Rate is a calculated parameterbased on serum Creatinine, patient age and sex. GFR valuesless than 60 mL/min/1.73 square meters are indicative ofChronic Kidney Disease. Values less than 15 mL/min/1.73square meters indicate Kidney failure. The calculation forGFR is based on the CKD-EPI (2020) calculation. This formulais race indifferent and is the recommended formula for GFRby the National Kidney Foundation for Adults.The GFR will not calculate if the sex is unknown or if thepatient's age is <18 years. CREATININE (test code = CREAT) 1.09 mg/dL 0.60-1.30 N ESTIMATED CREAT CLEARANCE (test code = ECRCL) 80 mL/min >30 CALCIUM (test code = CA) 7.9 mg/dl 8.0-10.5 L [id number] 07:03:00* Test Item Value Reference Range Interpretation Comme nts MAGNESIUM (test code = MAG) 2.0 mg/dl 1.8-2.4 N [id number] 20:39:00* Test Item Value Reference Range Interpretation Comme nts GLUBED (test code = GLUBED) 208 mg/dL 70-110 H HGB [id number] 19:53:00* Test Item Value Reference Range Interpretation Comme nts HEMOGLOBIN (test code = HGB) 13.4 gm/dL 13.0-17.0 N HEMATOCRIT (test code = HCT) 42.4 % 36.0-48.0 N [id number] 16:26:00* Test Item Value Reference Range Interpretation Comme nts GLUBED (test code = GLUBED) 140 mg/dL 70-110 H HGB [id number] 11:54:00* Test Item Value Reference Range Interpretation Comme nts HEMOGLOBIN (test code = HGB) 13.7 gm/dL 13.0-17.0 N HEMATOCRIT (test code = HCT) 43.4 % 36.0-48.0 N [id number] 07:15:00* Test Item Value Reference Range Interpretation Comme nts AMMONIA (test code = AMM) 17.0 MCMOL/L 11.0-32.0 N LACTIC [id number] 06:55:00* Test Item Value Reference Range Interpretation Comme nts LACTIC ACID (test code = LACT) 1.5 mmol/L 0.4-2.0 N BASIC METABOLIC [id number] 06:40:00* Test Item Value Reference Range Interpretation Comme nts SODIUM (test code = NA) 136 mmol/l 134.0-147.0 N POTASSIUM (test code = K) 3.8 mmol/L 3.6-5.2 N CHLORIDE (test code = CL) 100 mmol/l 98.0-107.0 N CARBON DIOXIDE (test code = CO2) 28.0 mmol/l 21.0-33.0 N ANION GAP (test code = GAP) 11.8 0-20 N GLUCOSE (test code = GLU) 137 mg/dl 70.0-110.0 H BLOOD UREA NITROGEN (test code = BUN) 28 mg/dl 7.0-18.0 H GLOMERULAR FILTRATION RATE (test code = GFR) 58 mL/min The Glomerular Filtration Rate is a calculated parameterbased on serum Creatinine, patient age and sex. GFR valuesless than 60 mL/min/1.73 square meters are indicative ofChronic Kidney Disease. Values less than 15 mL/min/1.73square meters indicate Kidney failure. The calculation forGFR is based on the CKD-EPI (2020) calculation. This formulais race indifferent and is the recommended formula for GFRby the National Kidney Foundation for Adults.The GFR will not calculate if the sex is unknown or if thepatient's age is <18 years. CREATININE (test code = CREAT) 1.44 mg/dL 0.60-1.30 H CALCIUM (test code = CA) 8.1 mg/dl 8.0-10.5 N ESTIMATED CREAT CLEARANCE (test code = ECRCL) 61 mL/min >30 HEPATIC FUNCTION PANEL [id number] 06:40:00* Test Item Value Reference Range Interpretation Comme nts TOTAL PROTEIN (test code = PROT) 6.3 gm/dL 6.4-8.2 L ALBUMIN (test code = ALB) 3.2 gm/dl 3.2-4.7 N BILIRUBIN TOTAL (test code = BILT) 0.8 mg/dl 0.0-1.0 N BILIRUBIN DIRECT (test code = BILD) 0.2 mg/dl 0.0-0.3 N SGOT/AST (test code = AST) 12 Units/L 15-37 L SGPT/ALT (test code = ALT) 18 Units/L 12.0-78.0 N ALKALINE PHOSPHATASE TOTAL ( test code = ALKP) 113 Units/L 50.0-136.0 N [id number] 06:40:00* Test Item Value Reference Range Interpretation Comme nts LIPASE (test code = LIP) 46 Units/L 65.0-230.0 L THROMBOPLASTIN TIME [id number] 06:39:00* Test Item Value Reference Range Interpretation Comme [facility] THROMBOPLASTIN TIME PARTIAL (test code = PTT) 28.00 SECONDS 25.86-36.07 N [facility] Therapeutic Range - APTT of 55.8-85.4 secondscorrelates with plasma heparin concentration of 0.2-0.4 u/mL Specimen comments: .PROTHROMBIN [id number] 06:39:00* Test Item Value Reference Range Interpretation Comme [facility] PROTHROMBIN TIME PATIENT (test code = PTP) 12.8 SECONDS 9.9-12.8 N INTERNATIONAL NORMAL RATIO (test code = INR) 1.1 0.89-1.14 N THE INR IS TO BE USED ONLY FOR MONITORING ORAL ANTICOAGULANTTHERAPY. THE FOLLOWING ARE SUGGESTED RANGES FROM THEAMERICAN COLLEGE OF CHEST PHYSICIANS:INDICATION INR VALUEPROPHYLAXIS OF VENOUS THROMBOSIS (ORTHOPEDIC SURGERY) 2.0 - 3.0PROPHYLAXIS OF VENOUS THROMBOSIS (OTHER THAN HIGH-RISK SURGERY) 2.0 - 3.0TREATMENT OF DEEP VEIN THROMBOSIS OR PULMONARY EMBOLISM 2.0 - 3.0PREVENTION OF SYSTEMIC EMBOLISM TISSUE HEART VALVES 2.0 - 3.0 ACUTE MYOCARDIAL INFARCTION (TO PREVENT SYSTEMIC EMBOLISM) 2.0 - 3.0 ACUTE MYOCARDIAL INFARCTION (TO PREVENT RECURRENT INFARCT) 2.5 - 3.0 VALVULAR HEART DISEASE 2.0 - 3.0 ATRIAL FIBRILATION 2.0 - 3.0BILEAFLET MECHANICAL VALVE IN AORTIC POSITION 2.0 - 3.0MECHANICAL PROSTHETIC VALVES (HIGH RISK) 2.5 - 3.5PRESENCE OF LUPUS ANTICOAGULANT OR ANTIPHOSPHOLIPID ANTIBODIES 2.5 - 3.5 Specimen comments: .CBC W/AUTO [id number] 06:29:00* Test Item Value Reference Range Interpretation Comme nts WHITE BLOOD CELL (test code = WBC) 6.0 K/mm3 4.5-11.0 N RED BLOOD CELL (test code = RBC) 5.61 M/mm3 4.40-5.90 N HEMOGLOBIN (test code = HGB) 15.6 gm/dL 13.0-17.0 N HEMATOCRIT (test code = HCT) 48.2 % 36.0-48.0 H MEAN CELL VOLUME (test code = MCV) 85.9 UM3 80.0-94.0 N MEAN CELL HGB (test code = MCH) 27.8 UUG 25.5-32.5 N MEAN CELL HGB CONCETRATION (test code = MCHC) 32.4 gm/dL 29.0-35.5 N RED CELL DISTRIBUTION WIDTH (test code = RDW) 14.3 % 11.5-15.0 N RED CELL DISTRIBUTION WIDTH SD (test code = RDW-SD) 44.2 fL 34.8-50.2 N PLATELET COUNT (test code = PLT) 143 K/mm3 150-400 L MEAN PLATELET VOLUME (test c ode = MPV) 9.9 fl 7.4-10.4 N NEUTROPHIL % (test code = NT%) 83.7 % 49.0-76.0 H IMMATURE GRANULOCYTE % (test code = IG%) 0.3 % 0.0-0.4 N LYMPHOCYTE % (test code = LY%) 6.5 % 23.0-38.0 L MONOCYTE % (test code = MO%) 5.2 % 1.0-10.0 N EOSINOPHIL % (test code = EO%) 3.8 % 1.0-5.0 N BASOPHIL % (test code = BA%) 0.5 % 0.0-1.0 N NUCLEATED RBC % (test code = NRBC%) 0.0 % 0.0-0.1 N NEUTROPHIL # (test code = NT#) 5.0 K/mm3 2.4-6.3 N IMMATURE GRANULOCYTE # (test code = IG#) 0.02 x10 3/uL 0.00-0.07 N LYMPHOCYTE # (test code = LY#) 0.4 K/mm3 1.2-4.0 L MONOCYTE # (test code = MO#) 0.3 K/mm3 0.0-0.6 N EOSINOPHIL # (test code = EO#) 0.2 K/MM3 0.0-0.7 N BASOPHIL # (test code = BA#) 0.0 K/mm3 0.0-0.2 N NUCLEATED RBC # (test code = NRBC#) 0.00 X10 3uL 0.00-0.01 N Noninvasive colorectal cancer DNA and occult blood screening [Presence] in Stool 2022-12-15 15:10:00* Test Item Value Reference Range Interpretation Comme nts cologuard result reportable (test code = cologuard result reportable) negative negative [facility] Ag [Presence] in Respiratory specimen by Rapid sfvzhtyjbyq1625-31-95 15:54:00* Test Item Value Reference Range Interpretation Comme nts SARS CoV 2 (test code = SARS CoV 2) positive [facility] HospitalGlucose [Mass/volume] in Capillary blood 2021-09-16 15:57:00* Test Item Value Reference Range Interpretation Comme nts Blood Glucose: mg/dl (test c ode = Blood Glucose: mg/dl) 233 [facility]PO[facility] URINALYSIS, [id number] 13:27:00 * Test Item Value Reference Range Interpretation Comme nts POCT U SP GRAV (test code = 3255) 1.025 mg/dl 1.005-1.025 POCT PH U (test code = 3254) 5.5 mg/dl 5-8 POCT U LEUK EST (test code = 3263) negative Negative - Negative POCT U NIT (test code = 3262) negative Negative - Negative POCT U PROT (test code = 3259) trace Negative - Negative POCT U GLU (test code = 3256) Negative - Negative POCT U KETONE (test code = 3258) negative Negative - Negative POCT U UROBILI (test code = 3260) 0.2 mg/dl 0.2-1 POCT U BILI (test code = 3261) negative Negative - Negative POCT U BLD (test code = 3257) large Negative - Negative POCT U COLOR (test code = 3266) other POCT U APPEAR (test code = 3267) slightly cloudy [facility] URINALYSIS, [id number] 13:27:00 * Test Item Value Reference Range Interpretation Comme nts POCT U SP GRAV (test code = 3255) 1.025 mg/dl 1.005-1.025 POCT PH U (test code = 3254) 5.5 mg/dl 5-8 POCT U LEUK EST (test code = 3263) negative Negative - Negative POCT U NIT (test code = 3262) negative Negative - Negative POCT U PROT (test code = 3259) trace Negative - Negative POCT U GLU (test code = 3256) Negative - Negative POCT U KETONE (test code = 3258) negative Negative - Negative POCT U UROBILI (test code = 3260) 0.2 mg/dl 0.2-1 POCT U BILI (test code = 3261) negative Negative - Negative POCT U BLD (test code = 3257) large Negative - Negative POCT U COLOR (test code = 3266) other POCT U APPEAR (test code = 3267) slightly cloudy [facility] URINALYSIS, [id number] 13:27:00 * Test Item Value Reference Range Interpretation Comme nts POCT U SP GRAV (test code = 3255) 1.025 mg/dl 1.005-1.025 POCT PH U (test code = 3254) 5.5 mg/dl 5-8 POCT U LEUK EST (test code = 3263) negative Negative - Negative POCT U NIT (test code = 3262) negative Negative - Negative POCT U PROT (test code = 3259) trace Negative - Negative POCT U GLU (test code = 3256) Negative - Negative POCT U KETONE (test code = 3258) negative Negative - Negative POCT U UROBILI (test code = 3260) 0.2 mg/dl 0.2-1 POCT U BILI (test code = 3261) negative Negative - Negative POCT U BLD (test code = 3257) large Negative - Negative POCT U COLOR (test code = 3266) other POCT U APPEAR (test code = 3267) slightly cloudy [facility] [id number] 21:33:00 * Test Item Value Reference Range Interpretation Comme nts POCT U SP GRAV (test code = 3255) 1.025 mg/dl 1.005-1.025 POCT PH U (test code = 3254) 5.5 mg/dl 5-8 POCT U LEUK EST (test code = 3263) Large Negative - Negative POCT U NIT (test code = 3262) Postive Negative - Negati ve POCT U PROT (test code = 3259) >=300 Negative - Negative POCT U GLU (test code = 3256) Negative Negative - Negati ve POCT U KETONE (test code = 3258) Negative - Negative POCT U UROBILI (test code = 3260) 1.0 mg/dl 0.2-1 POCT U BILI (test code = 3261) Moderate Negative - Negative POCT U BLD (test code = 3257) Large Negative - Negati ve POCT U COLOR (test code = 3266) Red POCT U APPEAR (test code = 3267) Cloudy Lab Interpretation (test cod e = 45893-8) Abnormal [facility], [id number] 21:33:00 * Test Item Value Reference Range Interpretation Comme nts POCT U SP GRAV (test code = 3255) 1.025 mg/dl 1.005-1.025 POCT PH U (test code = 3254) 5.5 mg/dl 5-8 POCT U LEUK EST (test code = 3263) Large Negative - Negative POCT U NIT (test code = 3262) Postive Negative - Negati ve POCT U PROT (test code = 3259) >=300 Negative - Negative POCT U GLU (test code = 3256) Negative Negative - Negati ve POCT U KETONE (test code = 3258) Negative - Negative POCT U UROBILI (test code = 3260) 1.0 mg/dl 0.2-1 POCT U BILI (test code = 3261) Moderate Negative - Negative POCT U BLD (test code = 3257) Large Negative - Negati ve POCT U COLOR (test code = 3266) Red POCT U APPEAR (test code = 3267) Cloudy Lab Interpretation (test cod e = 99002-4) Abnormal [facility] W Auto Differential panel - Blood 2021-03-30 00:00:00* Test Item Value Reference Range Interpretation Comme nts Leukocytes [#/volume] in Blo od by Automated count (test code = 6690-2) 8.0 x10e3/uL 3.4-10.8 Erythrocytes [#/volume] in Blood by Automated count (test code = 789-8) 5.39 x10e6/uL 4.14-5.80 Hemoglobin [Mass/volume] in Blood (test code = 718-7) 15.6 g/dL 13.0-17.7 Hematocrit [Volume Fraction] of Blood by Automated count (test code = 4544-3) 45.3 % 37.5-51.0 Erythrocyte mean corpuscular volume [Entitic volume] by Automated count (test code = 787-2) 84 fL 79-97 Erythrocyte mean corpuscular hemoglobin [Entitic mass] by Automated count (test code = 785-6) 28.9 pg 26.6-33.0 Erythrocyte mean corpuscular hemoglobin concentration [Mass/volume] by Automated count (test code = 786-4) 34.4 g/dL 31.5-35.7 Erythrocyte distribution wid th [Ratio] by Automated count (test code = 788-0) 12.6 % 11.6-15.4 Platelets [#/volume] in Bloo d by Automated count (test code = 777-3) 231 x10e3/uL 150-450 Neutrophils/100 leukocytes i n Blood by Automated count (test code = 770-8) 67 % not estab. Lymphocytes/100 leukocytes i n Blood by Automated count (test code = 736-9) 21 % not estab. Monocytes/100 leukocytes in Blood by Automated count (test code = 5905-5) 7 % not estab. Eosinophils/100 leukocytes i n Blood by Automated count (test code = 713-8) 3 % not estab. Basophils/100 leukocytes in Blood by Automated count (test code = 706-2) 1 % not estab. immature cells (test code = immature cells) skiver blockers Neutrophils [#/volume] in Bl ood by Automated count (test code = 751-8) 5.4 x10e3/uL 1.4-7.0 Lymphocytes [#/volume] in Bl ood by Automated count (test code = 731-0) 1.7 x10e3/uL 0.7-3.1 Monocytes [#/volume] in Bloo d by Automated count (test code = 742-7) 0.6 x10e3/uL 0.1-0.9 Eosinophils [#/volume] in Bl ood by Automated count (test code = 711-2) 0.2 x10e3/uL 0.0-0.4 Basophils [#/volume] in Bloo d by Automated count (test code = 704-7) 0.1 x10e3/uL 0.0-0.2 Immature granulocytes/100 leukocytes in Blood by Automated count (test code = 46683-7) 1 % not estab. Immature granulocytes [#/volume] in Blood by Automated count (test code = 81133-4) 0.0 x10e3/uL 0.0-0.1 Nucleated erythrocytes/100 leukocytes [Ratio] in Blood by Automated count (test code = 19020-6) skiver blockers Morphology [Interpretation] in Blood Narrative (test code = 51988-3) skiver blockers [facility]Com[facility] 2000 panel - Serum or Uzofkc0457-29-26 00:00:00* Test Item Value Reference Range Interpretation Comme nts Glucose [Mass/volume] in Ser um or Plasma (test code = 2345-7) 239 mg/dL 65-99 H Urea nitrogen [Mass/volume] in Serum or Plasma (test code = 3094-0) 32 mg/dL 6-24 H Creatinine [Mass/volume] in Serum or Plasma (test code = 2160-0) 1.28 mg/dL 0.76-1.27 H Glomerular filtration rate/1.73 sq M.predicted among non-blacks [Volume Rate/Area] in Serum, Plasma or Blood by Creatinine-based formula (CKD-EPI) (test code = 94318-8) 64 mL/min/1.73 >59 Glomerular filtration rate/1.73 sq M.predicted among blacks [Volume Rate/Area] in Serum, Plasma or Blood by Creatinine-based formula (CKD-EPI) (test code = 42165-1) 74 mL/min/1.73 >59 Urea nitrogen/Creatinine [Ma ss Ratio] in Serum or Plasma (test code = 3097-3) 25 9-20 H Sodium [Moles/volume] in Ser um or Plasma (test code = 2951-2) 133 mmol/L 134-144 L Potassium [Moles/volume] in Serum or Plasma (test code = 2823-3) 4.0 mmol/L 3.5-5.2 Chloride [Moles/volume] in Serum or Plasma (test code = 5-0) 91 mmol/L 96-106 L Carbon dioxide, total [Moles/volume] in Serum or Plasma (test code = 2027-9) 25 mmol/L 20-29 Calcium [Mass/volume] in Ser um or Plasma (test code = 04946-5) 9.8 mg/dL 8.7-10.2 Protein [Mass/volume] in Ser um or Plasma (test code = 2885-2) 7.2 g/dL 6.0-8.5 Albumin [Mass/volume] in Ser um or Plasma (test code = 1751-7) 4.5 g/dL 3.8-4.9 Globulin [Mass/volume] in Serum by calculation (test code = 97529-2) 2.7 g/dL 1.5-4.5 Albumin/Globulin [Mass Ratio ] in Serum or Plasma (test code = 1759-0) 1.7 1.2-2.2 Bilirubin.total [Mass/volume ] in Serum or Plasma (test code = 1974-) 0.2 mg/dL 0.0-1.2 Alkaline phosphatase [Enzymatic activity/volume] in Serum or Plasma (test code = 6768-6) 140 IU/L 48-121 H Aspartate aminotransferase [Enzymatic activity/volume] in Serum or Plasma (test code = 1920-8) 8 IU/L 0-40 Alanine aminotransferase [Enzymatic activity/volume] in Serum or Plasma (test code = 1742-6) 11 IU/L 0-44 [facility] HospitalHemoglobin A1c/Hemoglobin.total in Blood 2021-03-30 00:00:00* Test Item Value Reference Range Interpretation Comme nts Hemoglobin A1c/Hemoglobin.to justina in Blood (test code = 4548-4) 9.4 % 4.8-5.6 H Glucose mean value [Mass/vol ume] in Blood Estimated from glycated hemoglobin (test code = 08030-7) 223 mg/dL [facility] HospitalUrinalysis macro (dipstick) panel - Urine 2021-03-29 09:04:00* Test Item Value Reference Range Interpretation Comme nts Nitrite (test code = Nitrite) negative Urobilinogen (test code = Urobilinogen) .2 Protein (test code = Protein) 2000+ pH (test code = pH) 6.0 Blood (test code = Blood) Large Specific [place] (test code = Specific [place]) 1.030 Ketone (test code = Ketone) Trace Bilirubin (test code = Bilirubin) Small Glucose (test code = Glucose) 250 Appearance (test code = Appearance) Slightly Cloudy Color (test code = Color) Red [facility] HospitalUrinalysis macro (dipstick) panel - Urine 2021-03-29 09:04:00* Test Item Value Reference Range Interpretation Comme nts Nitrite (test code = Nitrite) negative Urobilinogen (test code = Urobilinogen) .2 Protein (test code = Protein) 2000+ pH (test code = pH) 6.0 Blood (test code = Blood) Large Specific [place] (test code = Specific [place]) 1.030 Ketone (test code = Ketone) Trace Bilirubin (test code = Bilirubin) Small Glucose (test code = Glucose) 250 Appearance (test code = Appearance) Slightly Cloudy Color (test code = Color) Red [facility] W Auto Differential panel - Keans6381-29-52 00:00:00* Test Item Value Reference Range Interpretation Comme nts Leukocytes [#/volume] in Blo od by Automated count (test code = 6690-2) 5.2 x10e3/uL 3.4-10.8 Erythrocytes [#/volume] in Blood by Automated count (test code = 789-8) 5.69 x10e6/uL 4.14-5.80 Hemoglobin [Mass/volume] in Blood (test code = 718-7) 16.3 g/dL 13.0-17.7 Hematocrit [Volume Fraction] of Blood by Automated count (test code = 4544-3) 47.8 % 37.5-51.0 Erythrocyte mean corpuscular volume [Entitic volume] by Automated count (test code = 787-2) 84 fL 79-97 Erythrocyte mean corpuscular hemoglobin [Entitic mass] by Automated count (test code = 785-6) 28.6 pg 26.6-33.0 Erythrocyte mean corpuscular hemoglobin concentration [Mass/volume] by Automated count (test code = 786-4) 34.1 g/dL 31.5-35.7 Erythrocyte distribution wid th [Ratio] by Automated count (test code = 788-0) 12.7 % 11.6-15.4 Platelets [#/volume] in Bloo d by Automated count (test code = 777-3) 196 x10e3/uL 150-450 Neutrophils/100 leukocytes i n Blood by Automated count (test code = 770-8) 61 % not estab. Lymphocytes/100 leukocytes i n Blood by Automated count (test code = 736-9) 30 % not estab. Monocytes/100 leukocytes in Blood by Automated count (test code = 5905-5) 6 % not estab. Eosinophils/100 leukocytes i n Blood by Automated count (test code = 713-8) 2 % not estab. Basophils/100 leukocytes in Blood by Automated count (test code = 706-2) 1 % not estab. immature cells (test code = immature cells) skiver blockers Neutrophils [#/volume] in Bl ood by Automated count (test code = 751-8) 3.2 x10e3/uL 1.4-7.0 Lymphocytes [#/volume] in Bl ood by Automated count (test code = 731-0) 1.5 x10e3/uL 0.7-3.1 Monocytes [#/volume] in Bloo d by Automated count (test code = 742-7) 0.3 x10e3/uL 0.1-0.9 Eosinophils [#/volume] in Bl ood by Automated count (test code = 711-2) 0.1 x10e3/uL 0.0-0.4 Basophils [#/volume] in Bloo d by Automated count (test code = 704-7) 0.1 x10e3/uL 0.0-0.2 Immature granulocytes/100 leukocytes in Blood by Automated count (test code = 48143-9) 0 % not estab. Immature granulocytes [#/volume] in Blood by Automated count (test code = 02802-9) 0.0 x10e3/uL 0.0-0.1 Nucleated erythrocytes/100 leukocytes [Ratio] in Blood by Automated count (test code = 03612-1) skiver blockers Morphology [Interpretation] in Blood Narrative (test code = 52681-3) skiver blockers [facility] HospitalCom[facility] 2000 panel - Serum or Jmzezy9230-06-76 00:00:00* Test Item Value Reference Range Interpretation Comme nts Glucose [Mass/volume] in Ser um or Plasma (test code = 2345-7) 180 mg/dL 65-99 H Urea nitrogen [Mass/volume] in Serum or Plasma (test code = 3094-0) 18 mg/dL 6-24 Creatinine [Mass/volume] in Serum or Plasma (test code = 2160-0) 1.06 mg/dL 0.76-1.27 Glomerular filtration rate/1.73 sq M.predicted among non-blacks [Volume Rate/Area] in Serum, Plasma or Blood by Creatinine-based formula (CKD-EPI) (test code = 58968-0) 80 mL/min/1.73 >59 Glomerular filtration rate/1.73 sq M.predicted among blacks [Volume Rate/Area] in Serum, Plasma or Blood by Creatinine-based formula (CKD-EPI) (test code = 09213-2) 93 mL/min/1.73 >59 Urea nitrogen/Creatinine [Ma ss Ratio] in Serum or Plasma (test code = 3097-3) 17 9-20 Sodium [Moles/volume] in Ser um or Plasma (test code = 2951-2) 138 mmol/L 134-144 Potassium [Moles/volume] in Serum or Plasma (test code = 2823-3) 4.6 mmol/L 3.5-5.2 Chloride [Moles/volume] in Serum or Plasma (test code = 2075-0) 100 mmol/L 96-106 Carbon dioxide, total [Moles/volume] in Serum or Plasma (test code = 2027-9) 23 mmol/L 20-29 Calcium [Mass/volume] in Ser um or Plasma (test code = 81019-4) 9.5 mg/dL 8.7-10.2 Protein [Mass/volume] in Ser um or Plasma (test code = 2885-2) 7.5 g/dL 6.0-8.5 Albumin [Mass/volume] in Ser um or Plasma (test code = 1751-7) 4.6 g/dL 3.8-4.9 Globulin [Mass/volume] in Serum by calculation (test code = 34561-6) 2.9 g/dL 1.5-4.5 Albumin/Globulin [Mass Ratio ] in Serum or Plasma (test code = 1759-0) 1.6 1.2-2.2 Bilirubin.total [Mass/volume ] in Serum or Plasma (test code = 1974-2) 0.3 mg/dL 0.0-1.2 Alkaline phosphatase [Enzymatic activity/volume] in Serum or Plasma (test code = 6768-6) 166 IU/L 39-117 H Aspartate aminotransferase [Enzymatic activity/volume] in Serum or Plasma (test code = 1920-8) 9 IU/L 0-40 Alanine aminotransferase [Enzymatic activity/volume] in Serum or Plasma (test code = 1742-6) 11 IU/L 0-44 [facility] ClinicsHemoglobin A1c/Hemoglobin.total in Blood 2020-11-10 00:00:00* Test Item Value Reference Range Interpretation Comme nts Hemoglobin A1c/Hemoglobin.to justina in Blood (test code = 4548-4) 11.2 % 4.8-5.6 H [facility] ClinicsThyrotropin [Units/volume] in Serum or Plasma by Detection limit <= 0.005 mIU/C6277-75-59 00:00:00* Test Item Value Reference Range Interpretation Comme nts Thyrotropin [Units/volume] i n Serum or Plasma by Detection limit <= 0.005 mIU/L (test code = 71014-1) 2.730 uIU/mL 0.450-4.500 [facility] Notes Date/Time Note Provider Source 2023-02-22 13:37:00 [id number] [id number]/buchPf hadI+FZnOqeHztFvYbze5XEvL0y6104-43-90W56:37:00 [facility] Dis[facility] SummaryREPORT#:[id number] REPORT STATUS: SignedDATE:02/22/23 TIME: 133 PATIENT: RONIT ANGELES UNIT #: [id number]#: [id number] [address] [birth year] AGE: 52 SEX: M ATTEND: Jackelin Vega [facility] AUTHOR: Sarah Vergara MD * ALL edits or amendments must be made on the electronic/computer document * General InformationDate of admission:Observation Start Date: 02/21/23Date of admission: 02/21/23 Discharge date: 02/22/23Discharge diagnosis:Campbell's esophagusAcute gastritisGI bleed from above, resolvedDiabetes mellitus type 2AKIGastroenteritisHospital course:GI bleedMonitor hemoglobinTransfuse if actively bleeding or hemoglobin less than 7PPI IVGI consultDoes not take any NSAIDs at home GastroenteritisImprovingClears if okay with GI WAYNE from dehydration Continue IV fluids diabetes mellitus type 2Continue home meds 02/22EGD with Campbell's changes, continue PPI twice daily, hemoglobin stable, stable for discharge home with outpatient GI follow-up to follow-up on biopsy results.Pt. condition on discharge: improved, stable Med Rec Med RecDischarge meds:Stop taking the following medications:PANTOPRAZOLE DR (PROTONIX) 20 MG TAB.DR 20 MILLIGRAM ORAL DAILY. Continue taking these medications:ATORVASTATIN (LIPITOR) 20 MG TAB 20 MILLIGRAM ORAL BEDTIME. HYDROCHLOROTHIAZIDE (HCTZ) 12.5 MG CAP 25 MILLIGRAM ORAL DAILY. metFORMIN (GLUCOPHAGE) 1,000 MG TAB 1,000 MILLIGRAM ORAL TWICE DAILY. Instructions: TAKE WITH MEALS GLIMEPIRIDE (AMARYL) 4 MG TAB 4 MILLIGRAM ORAL DAILY. Start taking the following new medications:PANTOPRAZOLE DR (PROTONIX) 40 MG TAB.DR 40 MILLIGRAM ORAL TWICE DAILY. Qty = 60 No Refills Objective Free Text Obj NotesFree Text Obj Notes:PHYSICAL EXAMINATION General appearance: alert, awake, no acute distress Head/Eyes: atraumatic, normocephalic, PERRL, EOMI ENT: normal ear left, normal ear right, normal nose, normal pharynx Neck: full range of motion, supple/no meningismus Cardiovascular: normal S1/S2, regular rate rhythm Respiratory/chest: good breath sounds, symmetric expansion, no distress Abdomen: soft, non-tender, normal bowel sounds Genitourinary: deferred Extremities: moves all, no clubbing, no cyanosis, no edema Musculoskeletal: full range of motion, normal inspection Neuro/TRAVELING PHLEBOTOMIST alert, oriented X 3, CNII-XII intact Skin: dry, intact Psychiatry: normal affect, normal judgment/insight, normal mood Discharge Instructions PCPPCP follow-up:PCP: Undefined Provider Discharge to: Home/Self CareAdditional Discharge Routines: PCP Follow-Up (1wk)Diet: CardiacActivity: As ToleratedPrescriptions: on chartDischarge management: greater than 30 mins at 1454 [facility] #:[id number] OF REPORTDSDischarge ptrvmlg5728-59-68A83:37:00E.GZLZ19861309-6240MJTq ailable for patient sfdrYFPZBUHDQJIKXB4641-12-99W82:54:14 [facility] 2023-02-22 11:29:00 [id number] Eb1/2x5jQ+tK35aKlH52M0rw/C3rx xObur9x71JmBtszirS5q3F+hgWy2787-91-94L20:29:00 [facility] ([facility]ospital[facility] Progress NoteREPORT#:[id number] REPORT STATUS: SignedDATE:02/22/23 TIME: 1129 PATIENT: RONIT ANGELES UNIT #: [id number]#: [id number] [address] [birth year] AGE: 52 SEX: M ATTEND: Jackelin Vega [facility] AUTHOR: Sarah Vergara MD * ALL edits or amendments must be made on the electronic/computer document * SubjectiveChief complaint:fu Coffee-ground emesis no bleeding nowEGD today Review of Systems Free Text ROS NotesFree Text ROS Notes:14 point reviewed found to be negative except as mentioned in HPI Objective Free Text Obj NotesFree Text Obj Notes:PHYSICAL EXAMINATION General appearance: alert, awake, no acute distress Head/Eyes: atraumatic, normocephalic, PERRL, EOMI ENT: normal ear left, normal ear right, normal nose, normal pharynx Neck: full range of motion, supple/no meningismus Cardiovascular: normal S1/S2, regular rate rhythm Respiratory/chest: good breath sounds, symmetric expansion, no distress Abdomen: soft, non-tender, normal bowel sounds Genitourinary: deferred Extremities: moves all, no clubbing, no cyanosis, no edema Musculoskeletal: full range of motion, normal inspection Neuro/TRAVELING PHLEBOTOMIST alert, oriented X 3, CNII-XII intact Skin: dry, intact Psychiatry: normal affect, normal judgment/insight, normal mood Diagnosis, Assessment Plan Free Text DxA P NotesFree text DxA P notes:GI bleedMonitor hemoglobinTransfuse if actively bleeding or hemoglobin less than 7PPI IVGI consultDoes not take any NSAIDs at home GastroenteritisImprovingClears if okay with GI WAYNE from dehydration Continue IV fluids diabetes mellitus type 2Continue home meds SCDs for DVT prophylaxis 02/22EG today at 1452 [facility] #:[id number] OF REPORTPRProgress ulro1909-56-77E35:29:00E.IRWQ75367552-2360ZLRxncz able for patient kifpDPQYRCUQBAPBFM0538-69-10B22:52:54 [facility] 2023-02-22 10:07:00 [id number]+/d5bh vT05g5SQGsvD5cloeXBobhoZIpcQm D+6GwmP9GWsor0ahxs5Q1Tu9vKS6499-64-26D40:07:71493 7-[address] [address] [address] [place], [place] [address] PATIENT NAME: RONIT ANGELES ADMIT DATE: 02/21/23ACCOUNT NO: [id number] DISCHARGE DATE: 02/22/23MEDICAL RECORD NO: [id number] ROOM NO: E.[facility] REPORT TYPE: CONSULTATION REPORT DATE OF : [birth year] AGE: 52 SEX: M ADMITTING PHYSICIAN:Jackelin Vega MD ATTENDING PHYSICIAN:Jackelin Vega MD CONSULTATION DATE: 02/22/2023 DATE OF CONSULTATION: 02/21/2023. CONSULTING PHYSICIAN: ER. REASON FOR CONSULTATION:1. Chronic GERD, on PPI.2. Vomiting coffee-colored emesis.3. Epigastric pain. HISTORY OF PRESENT ILLNESS: A 52-year-old male with significant history of GERD. Evidently, he is currently admitted with two days history of vomiting. Evidently, the patient also was noted to have coffee-colored emesis. He also has a history of chronic GERD, given pantoprazole. PAST MEDICAL HISTORY: Peptic ulcer disease, chronic GERD. PAST SURGICAL HISTORY: Hernia repair. FAMILY HISTORY: No GI malignancy, pancreatic or liver disease. SOCIAL HISTORY: Denies alcohol. Denies drugs. MEDICATIONS: Reviewed. ALLERGIES: NONE. REVIEW OF SYSTEMS: . IMPRESSION AND PLAN:1. Persistent nausea and vomiting.2. Chronic gastroesophageal reflux disease.3. Hematemesis.4. Epigastric pain. At this point of time, we will recommend PPI daily and plan EGD.5. Continue to monitor the patient's progress. Dictated By: Geovanna Mendosa MD Date Dictated: 02/22/2023 10:07:17Date Transcribed: 02/22/2023 11:23:34AM/[facility] [place] NAME: RONIT ANEGLES Wrfmcjx ID: [id number] by Geovanna Mendosa MD On 03/07/2023 06:44:30 AM at 0644 PATIENT NAME: RONIT ANGELES :23:00E.VA [id number] for patient leooERYPPTHTOPQGXR9678-52-43Q67:45:08 [facility] 2023-02-22 09:46:00 [id number] [id number]+/[id number]:46:97730 7-0018 [place] [address] PATIENT NAME: RONIT ANGELES ADMIT DATE: 02/21/23ACCOUNT NO: [id number] DISCHARGE DATE: ROOM NO: E.438 REPORT TYPE: ENDOSCOPY REPORT DATE OF : [birth year] AGE: 52 SEX: M ADMITTING PHYSICIAN:Jackelin Vega MD ATTENDING PHYSICIAN:Jackelin Vega [facility]it [facility] Procedure Date: 02/22/2023 9:46 AMMRN: [id number] of : 1970 Admit Type: InpatientAge: 52 Gender: MaleAttending MD: Geovanna Mendosa MD Procedure: Upper GI endoscopyIndications: Heartburn, HematemesisProviders: Advitya Deondre, MD (Doctor)Referring MD: Self ReferredRequesting Provider: Medicines: General AnesthesiaProcedure: Pre-Anesthesia Assessment: - Prior to the procedure, a History and Physical was performed, and patient medications and allergies were reviewed. The patient's tolerance of previous anesthesia was also reviewed. The risks and benefits of the procedure and the sedation options and risks were discussed with the patient. All questions were answered, and informed consent was obtained. Prior Anticoagulants: The patient has taken no anticoagulant or antiplatelet agents. ASA Grade Assessment: II - A patient with mild systemic disease. After reviewing the risks and benefits, the patient was deemed in satisfactory condition to undergo the procedure. After obtaining informed consent, the endoscope was passed under direct vision. Throughout the procedure, the patient's blood pressure, pulse, and oxygen saturations were monitored continuously. The Endoscope was introduced through the mouth, and advanced to the second part of duodenum. The upper GI endoscopy was accomplished without difficulty. The patient tolerated the procedure well. Findings: The esophagus and gastroesophageal junction were examined with white light and narrow band imaging (NBI) from a forward view and retroflexed position. There were esophageal mucosal changes consistent with long-segment Campbell's esophagus. These changes involved the mucosa at PATIENT NAME: RONIT ANGELES the upper extent of the gastric folds (36 cm from the incisors) extending to the Z-line (31 cm from the incisors). Hiatal narrowing was identified at 39 cm - 2 cm long hernia. The maximum longitudinal extent of these esophageal mucosal changes was 5 cm in length. Mucosa was biopsied with a cold forceps for histology randomly in the lower third of the esophagus. One specimen bottle was sent to pathology. Patchy mild inflammation characterized by congestion (edema) and erythema was found in the gastric antrum. Biopsies were taken with a cold forceps for histology. The examined duodenum was normal. Complications: No immediate complications. 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 Biopsied. - Acute gastritis. Biopsied. - Normal examined duodenum.Recommendation: - Await pathology results. - Repeat upper endoscopy in 1 year for surveillance.Procedure Code(s): --- Professional --- 71216, Esophagogastroduodenoscopy, flexible, transoral; with biopsy, single or multiple CPT copyright 2020 [employer]. All rights reserved. The codes documented in this report are preliminary and upon email campaign manager review may be revised to meet current compliance requirements. Geovanna Mendosa MD Geovanna Mendosa MD02/22/2023 10:10:30 AMThis report has been signed electronically.Number of Addenda: 0 Note Initiated On: 02/22/2023 9:46 AMProvation {[id number]}.pdf ProVation FT PDF at 1010 PATIENT NAME: RONIT ANGELES [id number]:10:00E.[id number] ilable for patient qccpZWHGLIUONEHOLX6204-02-20W42:11:05 [facility] 2023-02-21 09:10:00 [id number] [id number]9-08-92H22:10:00 [facility]ospital[facility] History PhysicalREPORT#:[id number] REPORT STATUS: SignedDATE:02/21/23 TIME: 09 PATIENT: RONIT ANGELES UNIT #: [id number]#: [id number] ROOM/BED: 438-1DOB: [birth year] AGE: 52 SEX: M ATTEND: Jackelin Vega [facility] AUTHOR: Sarah Vergara MD * ALL edits or amendments must be made on the electronic/computer document * History of Present Illness HPIChief complaint:Coffee-ground emesisPCP:PCP: Undefined Provider HPI:52-year-old patient with known history of diabetes mellitus type 2, previous history of peptic ulcer presented to the hospital with severe nausea vomiting for 2 days after which she started having coffee-ground black looking vomit. She denies any hematochezia and melena. No recent weight loss appetite changes are reported. He denies any NSAID use. He has been compliant with Protonix at home. Upon arrival to the ER he was afebrile hemodynamically stable. Hemoglobin was 15.6 which has dropped to 13.7. Patient was admitted for observation History Past Medical Surgical HxAdditional medical history:Peptic ulcer diseaseAdditional surgical history:Hernia repair Family HistoryAdditional family history:Noncontributory Social HistoryAlcohol use: Denies EtOH useDrug use: Denies recreational drugsSmoking status for patients 13 years old or older: Never Smoker Medication/Allergy-Vaccine HxAllergies:Coded Allergies:No Known Allergies (02/21/23) Review of Systems Free Text ROS NotesFree Text ROS Notes:14 point reviewed found to be negative except as mentioned in HPI OBJECTIVEVS/I O:Vital Signs Date Temp Pulse Resp B/P B/P Mean Pulse Ox FiO2 02/21 36.6-36.7 79-93 16 125-137/62-76 87-92.3 95-98 Last Documented: Result Date Time Pulse Ox 95 02/21 1125 B/P 125/76 02/21 1125 B/P Mean 92.3 02/21 1125 Temp 36.6 02/21 1125 Pulse 79 02/21 1125 Resp 16 02/21 1125 O2 Delivery Room air 02/21 0546 24 hour I O ending at 0700: 02/20 1900 02/21 0700 Intake Total Output Total Balance Patient 90.909 kg Weight Weight Stated/Reported Measurement Method Patient Weight and BMI Weight (kg): 90.909 BMI: 28.8 ResultsFindings/Data:Laboratory Tests: 02/21 02/21 02/21 02/21 0558 0558 0558 1115 Chemistry Sodium (134.0 - 147.0 mmol/l) 136 Potassium (3.6 - 5.2 mmol/L) 3.8 Chloride (98.0 - 107.0 mmol/l) 100 Carbon Dioxide (21.0 - 33.0 mmol/l) 28.0 Anion Gap (0 - 20) 11.8 BUN (7.0 - 18.0 mg/dl) 28 H Creatinine (0.60 - 1.30 mg/dL) 1.44 H Estimated Creat Clear (>30 mL/min) 61 Glomerular Filtr Rate (mL/min) 58 Glucose (70.0 - 110.0 mg/dl) 137 H Lactic Acid (0.4 - 2.0 mmol/L) 1.5 Calcium (8.0 - 10.5 mg/dl) 8.1 Total Bilirubin (0.0 - 1.0 mg/dl) 0.8 Direct Bilirubin (0.0 - 0.3 mg/dl) 0.2 AST (15 - 37 Units/L) 12 L ALT (12.0 - 78.0 Units/L) 18 Total Alk Phosphatase (50.0 - 136.0 Units/L) 113 Ammonia (11.0 - 32.0 MCMOL/L) 17.0 Total Protein (6.4 - 8.2 gm/dL) 6.3 L Albumin (3.2 - 4.7 gm/dl) 3.2 Lipase (65.0 - 230.0 Units/L) 46 L Coagulation INR (0.89 - 1.14) 1.1 PTT ([place]) (25.86 - 36.07 SECONDS) 28.00 PT Patient/Control Mix (9.9 - 12.8 SECONDS) 12.8 Hematology WBC (4.5 - 11.0 K/mm3) 6.0 RBC (4.40 - 5.90 M/mm3) 5.61 Hgb (13.0 - 17.0 gm/dL) 15.6 13.7 Hct (36.0 - 48.0 %) 48.2 H 43.4 MCV (80.0 - 94.0 UM3) 85.9 MCH (25.5 - 32.5 UUG) 27.8 MCHC (29.0 - 35.5 gm/dL) 32.4 RDW (11.5 - 15.0 %) 14.3 Plt Count (150 - 400 K/mm3) 143 L MPV (7.4 - 10.4 fl) 9.9 Neut % (Auto) (49.0 - 76.0 %) 83.7 H Lymph % (Auto) (23.0 - 38.0 %) 6.5 L Pima % (Auto) (1.0 - 10.0 %) 5.2 Eos % (Auto) (1.0 - 5.0 %) 3.8 Baso % (Auto) (0.0 - 1.0 %) 0.5 Neut # (Auto) (2.4 - 6.3 K/mm3) 5.0 Lymph # (Auto) (1.2 - 4.0 K/mm3) 0.4 L [place] # (Auto) (0.0 - 0.6 K/mm3) 0.3 Eos # (Auto) (0.0 - 0.7 K/MM3) 0.2 Baso # (Auto) (0.0 - 0.2 K/mm3) 0.0 Absolute Nucleated RBC (0.00 - 0.01 X10 3uL) 0.00 Immature Gran % (0.0 - 0.4 %) 0.3 Nucleated RBC % (0.0 - 0.1 %) 0.0 Immature Gran # (0.00 - 0.07 x10 3/uL) 0.02 Laboratory Tests 02/21/23 0558:[Embedded Image Not Available] 02/21/23 1115:[Embedded Image Not Available] Free Text PE NotesFree Text PE Notes:PHYSICAL EXAMINATION General appearance: alert, awake, no acute distress Head/Eyes: atraumatic, normocephalic, PERRL, EOMI ENT: normal ear left, normal ear right, normal nose, normal pharynx Neck: full range of motion, supple/no meningismus Cardiovascular: normal S1/S2, regular rate rhythm Respiratory/chest: good breath sounds, symmetric expansion, no distress Abdomen: soft, non-tender, normal bowel sounds Genitourinary: deferred Extremities: moves all, no clubbing, no cyanosis, no edema Musculoskeletal: full range of motion, normal inspection Neuro/TRAVELING PHLEBOTOMIST alert, oriented X 3, CNII-XII intact Skin: dry, intact Psychiatry: normal affect, normal judgment/insight, normal mood Diagnosis, Assessment PlanFree Text A P:GI bleedMonitor hemoglobinTransfuse if actively bleeding or hemoglobin less than 7PPI IVGI consultDoes not take any NSAIDs at home GastroenteritisImprovingClears if okay with GI WAYNE from dehydration Continue IV fluids diabetes mellitus type 2Continue home meds SCDs for DVT prophylaxis at 1345 RPT #:[id number] OF REPORTHPHistory and physical ygrsjebkdlr8785-27-92Q88:10:00E.[id number] AVAvailable for patient alqrRMUWDWTSOFKZHQ6182-84-90W61:45:51 [facility] 2023-02-21 05:51:00 [id number] +[id number] rLJbSvxyip8igqoHjcVt7yIsGpc1806-98-21C95:51:00 [facility] ([facility])EMERGENCY PROVIDER REPORTREPORT#:[id number] REPORT STATUS: SignedDATE:02/21/23 TIME: 05 PATIENT: RONIT ANGELES UNIT #: [id number]#: [id number] [address]GE: 52 SEX: M PCP PHYS: Undefined ProviderSERVICE AUTHOR: Sher Day MD * ALL edits or amendments must be made on the electronic/computer document * HPI-GI Bleed/Rectal Prob GeneralInitial Greet Date/Time 02/21/23 0547 PresentationChief Complaint Vomiting coffee grounds Free Text HPI NotesFree Text HPI NotesPatient 52-year-old male present with chief concern of vomiting. Patient notes that he had vomiting started approximately 1500 on 02/20/2023. Patient said he was having what he thought was coffee-ground emesis with first 2 episodes and then nothing clear fluid. Patient believes that he was dehydrated because he was working not drinking a lot in the days prior during the rainy weekend. Patient denying any bright red blood per rectum nor dark stools. Patient with no other acute symptoms at this time. Patient was seen evaluated in outside facility where patient underwent CT that showed no acute process initial hemoglobin 16 point 6 repeat 15.6. Given their concern the patient may require GI consultation or transfer patient for further work-up and evaluation. Patientinitially had blood pressure was stable and systolic 130s although per report had blood pressure in the 100 systolic. Patient on arrival with more stable vital signs. Patient denying any other acute symptoms at this time noting that the nausea is improved after receiving antiemetic at outside facility. Review of Systems Free Text ROS NotesFree Text ROS Notes1.Constitutional: No fever, No chills, No weight loss, No fatigue2. Head: No trauma, or No Headache3. Eyes: No eye pain, No eye redness4. Ears, nose, mouth, throat: no sore throat, no ear pain, no tooth pain, no nasal congestion5. Cardiovascular: no chest pain or discomfort, no palpitations6. Respiratory: no nznggibxe-sw-wbhrmr, no cough7. GI: Endorses nausea, no vomiting, no diarrhea, no constipation, no abdominal pain8 .: Denies dysuria, No hematuria, denies flank pain, denies reproductive organ pain/discomfort8. Musculoskeletal: no muscle pain, no swelling9. Skin: No rash, no eqgdfam72. Neurologic: No weakness or numbness.11.Back: No Back Pain, No back fteqfb01. Psychiatric: No suicidal ideation, No homicidal Ideation, no hallucinations Past Medical History - AdultStated Complaint UPPER GIBAllergiesCoded Allergies:No Known Allergies (02/21/23) Home MedicationsReported MedicationsATORVASTATIN (LIPITOR) 20 MG PO BEDTIME PANTOPRAZOLE DR (PROTONIX) 20 MG PO DAILY HYDROCHLOROTHIAZIDE (HCTZ) 25 MG PO DAILY metFORMIN (GLUCOPHAGE) 1,000 MG PO BID GLIMEPIRIDE (AMARYL) 4 MG PO DAILY Pt reports no significant: Past medical history, Past surgical history, Family historySmoking status for patients 13 years old or older: Never Smoker Physical Exam Vital SignsVital SignsFirst Documented: Result Date Time Pulse Ox 96 02/21 0546 B/P 137/62 02/21 0546 B/P Mean 87 02/21 0546 O2 Delivery Room air 02/21 546 Temp 36.7 02/21 546 Pulse 93 02/21 0546 Resp 16 02/21 546 Last Documented: Result Date Time Pulse Ox 98 02/21 0600 B/P 137/62 02/21 0546 B/P Mean 87 02/21 0546 O2 Delivery Room air 02/21 546 Temp 36.7 05/16 0546 Pulse 93 02/21 546 Resp 16 02/21 546 Review of Vital Signs Reviewed Free Text PE NotesFree Text PE NotesGeneral Appearance: Alert, Oriented, Resting Comfortably, No Apparent DistressEyes: Normal Inspection, PERRL, EOMIHead Ears Nose and Throat: Normocephalic, Atraumatic, Normal ENT inspectionNeck: Supple, Normal InspectionLymphatic: No lymphadenopathyRespiratory: Lungs Clear to auscultation bilaterallyCardiovascular: Regular Rate, Regular Rhythm, No Murmur, No RubsPeripheral Pulses: DP/PT pulses normal bilaterally Normal: Left Carotid, Lower Extremities, Right CarotidAbdomen: Soft, Non-Tender, Non-Distended, Normal Bowel Sounds, No Organomegaly,No GuardingExtremities: No Clubbing, No Cyanosis, No EdemaPsych/Mental Status: Normal AffectNeurologic: Alert, Oriented to Person, Oriented to Place, Oriented to Time, Cranial Nerves II - XII Intact, Follows commandsMotor/Sensory: No Motor Deficit, No Sensory DeficitSkin: Warm/Dry, Normal Color, No Rashes Interpretation Diagnostics Lab Results InterpretationConsiderations Independ review imagingResultsLaboratory Tests 02/21/23 0558:[Embedded Image Not Available]Laboratory Tests: 02/21 02/21 02/21 0558 0558 0558 Chemistry Sodium (134.0 - 147.0 mmol/l) 136 Potassium (3.6 - 5.2 mmol/L) 3.8 Chloride (98.0 - 107.0 mmol/l) 100 Carbon Dioxide (21.0 - 33.0 mmol/l) 28.0 Anion Gap (0 - 20) 11.8 BUN (7.0 - 18.0 mg/dl) 28 H Creatinine (0.60 - 1.30 mg/dL) 1.44 H Estimated Creat Clear (>30 mL/min) 61 Glomerular Filtr Rate (mL/min) 58 Glucose (70.0 - 110.0 mg/dl) 137 H Lactic Acid (0.4 - 2.0 mmol/L) 1.5 Calcium (8.0 - 10.5 mg/dl) 8.1 Total Bilirubin (0.0 - 1.0 mg/dl) 0.8 Direct Bilirubin (0.0 - 0.3 mg/dl) 0.2 AST (15 - 37 Units/L) 12 L ALT (12.0 - 78.0 Units/L) 18 Total Alk Phosphatase (50.0 - 136.0 Units/L) 113 Ammonia (11.0 - 32.0 MCMOL/L) 17.0 Total Protein (6.4 - 8.2 gm/dL) 6.3 L Albumin (3.2 - 4.7 gm/dl) 3.2 Lipase (65.0 - 230.0 Units/L) 46 L Coagulation INR (0.89 - 1.14) 1.1 PTT ([place]) (25.86 - 36.07 SECONDS) 28.00 PT Patient/Control Mix (9.9 - 12.8 SECONDS) 12.8 Hematology WBC (4.5 - 11.0 K/mm3) 6.0 RBC (4.40 - 5.90 M/mm3) 5.61 Hgb (13.0 - 17.0 gm/dL) 15.6 Hct (36.0 - 48.0 %) 48.2 H MCV (80.0 - 94.0 UM3) 85.9 MCH (25.5 - 32.5 UUG) 27.8 MCHC (29.0 - 35.5 gm/dL) 32.4 RDW (11.5 - 15.0 %) 14.3 Plt Count (150 - 400 K/mm3) 143 L MPV (7.4 - 10.4 fl) 9.9 Neut % (Auto) (49.0 - 76.0 %) 83.7 H Lymph % (Auto) (23.0 - 38.0 %) 6.5 L [place] % (Auto) (1.0 - 10.0 %) 5.2 Eos % (Auto) (1.0 - 5.0 %) 3.8 Baso % (Auto) (0.0 - 1.0 %) 0.5 Neut # (Auto) (2.4 - 6.3 K/mm3) 5.0 Lymph # (Auto) (1.2 - 4.0 K/mm3) 0.4 L [place] # (Auto) (0.0 - 0.6 K/mm3) 0.3 Eos # (Auto) (0.0 - 0.7 K/MM3) 0.2 Baso # (Auto) (0.0 - 0.2 K/mm3) 0.0 Absolute Nucleated RBC (0.00 - 0.01 X10 3uL) 0.00 Immature Gran % (0.0 - 0.4 %) 0.3 Nucleated RBC % (0.0 - 0.1 %) 0.0 Immature Gran # (0.00 - 0.07 x10 3/uL) 0.02 Microbiology: Date/Time Procedure - Status Source Growth 02/22 548 Occult Blood - COLB STOOL Lab Imaging StatementLaboratory radiographic studies reviewed and considered in the medical decision-making. ECG #1 InterpretationText/Dict NoteEKG INTERPRETATIONRhythm: Normal sinus rhythmVentricular Rate: 89 BPMPR: 172 msQRS: 90 msQTC: 425 msAxis: NormalST elevation: NoneST depression: NoneT wave inversion(s): NoneDate 02/21/23Time 0558Interpreted by and reviewed by me, Independently interpreted, ED physician Re-Evaluation MDM Free Text MDM NotesFree Text MDM NotesPatient 52-year-old male present from outside facility for GI consultation secondary to GI bleed. Patient's coffee-ground emesis has seemed to improve andresolved prior to arrival. Patient with slight drop of approximately one-point hemoglobin at outside facility from 16.6-15.6. Patient will have his hemoglobincycled at this facility and be admitted for observation status. Patient given initial dose of Protonix as well as twice daily Protonix during hospitalization. Patient mated. ED CourseMedication(s) OrderedMedication(s) Ordered:Autonomic Drugs Sig/Marya Start time Last Medication Dose Route Stop Time Status Admin Albuterol/Ipratropium 3 ML Q4H PRN PRN 02/21 600 AC NEB 03/04 457 Cardiovascular Drugs Sig/Marya Start time Last Medication Dose Route Stop Time Status Admin Hydralazine HCl 10 MG Q2H PRN PRN 02/21 600 AC IV 03/04 045 Central Nervous System Agents Sig/Marya Start time Last Medication Dose Route Stop Time Status Admin Acetaminophen 650 MG Q4H PRN PRN 02/21 0600 AC PO 03/04 045 Hydrocodone Bitart/ 1 TAB Q4H PRN PRN 02/21 600 AC 02/21 Acetaminophen PO 03/04 457 1556 Morphine Sulfate 4 MG Q4H PRN PRN 02/21 600 AC IV 03/04 0457 Electrolytic, Caloric, And Levi Sig/Marya Start time Last Medication Dose Route Stop Time Status Admin Dextrose/Water 125 ML ASDIR PRN 02/21 600 CKD IV 02/22 045 Dextrose/Water 250 ML ASDIR PRN 02/21 600 CKD IV 02/22 0457 Sodium Chloride 10 ML ASDIR PRN 02/21 0600 AC 02/21 IV 03/23 0559 0611 Sodium Chloride 1,000 ML ONCE ONE 02/21 600 DC IV 02/21 1559 Sodium Chloride 1,000 ML X1ED STA 02/21 0547 DC 02/21 IV 02/21 0646 0610 Gastrointestinal Drugs Sig/Marya Start time Last Medication Dose Route Stop Time Status Admin Metoclopramide HCl 10 MG Q6H PRN PRN 02/21 600 AC 02/21 IV 02/22 0457 1555 Ondansetron HCl 4 MG Q6H PRN PRN 02/21 600 AC IV 03/04 0457 Ondansetron HCl 4 MG X1ED STA 02/21 0547 DC 02/21 IV 02/21 0548 0611 Pantoprazole 80 MG X1ED STA 02/21 0547 DC 02/21 IV 02/21 0548 0611 Hormones And Synthetic Substit Sig/Marya Start time Last Medication Dose Route Stop Time Status Admin Insulin Human Lispro See Dose AC HS 02/21 0730 AC Insts (1) SUBQ 03/08 457 Glucagon 1 MG ASDIR PRN 02/21 600 AC IM 02/22 045 Dose Instructions:(1)Insulin Human Lispro: SLIDING SCALE Differential DiagnosisDifferential Diagnosis Anal fissures, Angiodysplasia, Aorta esoph fistula, Bleeding diathesis, Carcinoma, Crohn's disease, Diverticulosis, Esophageal varices, Esophagitis, Foreign body stomach, Foreign body intestine, Foreign bodyrectum, Gastritis, Gastroenteritis, GI Bleed, Hemorrhoids, Inflam bowel disease,Malignancy, Mariza-Salas syndrome, Meckel's diverticulum, Peptic ulcer disease,Perirectal abscess, Pilonidal abscess, Pilonidal cyst, Rectal bleeding, Rectal fissure, Stress ulcers, Ulcerative colitis MDM-ComplexityRuled Out DiagnosesBowel perforation, massive GI bleed,Severity/Chronicity EvaluationAcute MDM-History/Test InformationIndependent Hx From/WhyEMS given patient transfer EMS and EMS gave clinical history as well as report from outside facilityExternal Notes ReviewedEMS run sheet, records from outside facility work-up and evaluation MDM-Independent InterpretationMy ECG InterpretationAs aboveMy Other Test InterpretationLipase 46, within normal limits, albumin 3.2, within normal limits, total protein 6.3, slightly though not clinically significantAmmonia level 17.0 within normal limitsLiver enzymes within normal limitsLactic acid 1.5, within normal limitsGFR 58 BUN 28 creatinine 1.44 likely related some degree of mild dehydration given BUN to creatinine ratio approximate 20 as well as mild AKINo electrolyte abnormality with sodium within the limits of 136 potassium withinnormal limits at 3.8 chloride within normal limits at 100 CO2 within normal limits at 28.0 anion gap within normal is 11.8Coagulation factors within normal limits at 1.1 PTT within the limits of 28.0 PTwithin normal less than 12.8. CBC with white blood cell count 6.0 within normallimits RBCs 5.61 within normal limits hemoglobin 15.6, within normal limits hematocrit 40.2 slightly high not clinically significantPlatelet count 143, slightly low MDM-DiscussionDiscussed With/WhatAdmission decision discussed admitting provider. In agreement with admission plan. MDM-Treatment/EvaluationED CoursePatient received 1 L fluids 40 Protonix with frequent reevaluation patient not have any further episodes of emesis in the emergency department.Shared Decision-MakingShared decision makingWith regard to observation admission. Patient agrees with plan. Patient Discharge Departure Vital Signs/ConditionVital SignsFirst Documented: Result Date Time Pulse Ox 96 02/21 0546 B/P 137/62 02/21 0546 B/P Mean 87 02/21 0546 O2 Delivery Room air 02/21 0546 Temp 36.7 02/21 0546 Pulse 93 02/21 0546 Resp 16 02/21 0546 Last Documented: Result Date Time Pulse Ox 98 05/ 0600 B/P 137/62 02/21 0546 B/P Mean 87 02/21 0546 O2 Delivery Room air 02/21 0546 Temp 36.7 02/21 0546 Pulse 93 02/21 0546 Resp 16 02/21 0546 All vital signs available at the time of this entry have been reviewed. Condition Stable, Improved Clinical ImpressionClinical ImpressionPrimary Impression: Nausea vomitingSecondary Impressions: Upper GI bleed Disposition DecisionAdmit Admit Physician Name Jackelin Vega MD Admit Physician Hospitalist Request Time 0555 Request Date 02/21/23 )( Admission Accepts Yes )( Accepted Time 0555 )( Accepted Date 02/21/23 Call Information will see patient Discharge/Care PlanCounseled Regarding Diagnosis, Lab results, Imaging studies, Medication changes,Prescriptions, Need for admission Admit NoteI have spoken with the patient and/or caregivers. I have explained the patient'scondition, diagnoses and treatment plan based on the information available to meat this time. I have answered the patient's and/or caregiver's questions and addressed any concerns. The patient and/or caregivers have as good an understanding of the patient's diagnosis, condition and treatment plan as can beexpected at this point. The patient has been stabilized within the capability ofthe emergency department. The patient will be transported for further care and management or will be moved to an observation or inpatient service. I have communicated with the staff or medical practitioner taking over this patient's care. at 2010RPT #:[id number] OF REPORTEDGrace Hospital department mjechv5059-76-93X36:51:00E.[id number] ilable for patient vyxrCFXMGSAATRHHEM5910-46-92U69:11:08 HCAMN
[2024-01-31 08:20] LABS: Absolute Basophils 0.1 K/uL (0-0.5); Absolute Eosinophils 0.2 K/uL (0-0.5); Absolute Lymphocytes (CBC) 1.3 K/uL (0.7-4.9); Absolute Monocytes 0.4 K/uL (0.1-1.3); Absolute Neutrophil 3.6 K/uL (1.8-8.0); Basophils % 1.4 % (0-1.3); Eosinophils % 3.8 % (0-4.4); Hematocrit 50.5 % (39.6-49.0); Hemoglobin 16.6 g/dL (13.6-17.9); Lymphocytes % 23.7 % (15.3-44.8); MCH 28.4 pg (27.0-35.0); MCHC 32.9 g/dL (32.0-36.0); MCV 86.3 fL (80-100); MPV 7.7 fL (7.6-11.3); Monocytes % 7.2 % (3.3-12.3); Neutrophils % 63.9 % (41.7-73.7); Nucleated Red Blood Cells % 0.2 % (0-0); Platelets 218 thou/uL (152-406); RBC Red Blood Cell Count 5.85 M/uL (4.33-5.43); Red Cell Distribution Width 15.4 % (12.1-15.2)
[2024-01-31 08:32] LABS: Albumin/Globulin Ratio 1.1 (1.1-1.8); Anion Gap 8.9 mEq/L (5.0-15.0); Bilirubin Total 0.6 mg/dL (0.2-1.0); Globulin 3.5 g/dL (2.3-3.5); Potassium 3.9 mEq/L (3.5-5.1); Protein, Total 7.5 g/dL (6.4-8.2)
--- NOTE | 2024-01-31 09:04 | RAD REPORT ---
EXAM DESCRIPTION: CT - Abdomen Pelvis W Contrast - 01/31/2024 8:47 am CLINICAL HISTORY: Abdominal pain left lower quadrant pain COMPARISON: 2017 TECHNIQUE: Computed axial tomography of the abdomen pelvis was obtained. 100 cc Isovue-300 was admin istered intravenously. Oral contrast was not requested which limits evaluation of bowel and appendix All CT scans are performed using dose optimization technique as appropriate and may include automated exposure control or mA/KV adjustment according to patient size. FINDINGS: The liver, spleen, pancreas, adrenal and kidneys appear unremarkable. There is no evidence of diverticulitis. Normal appendix Mild anterior subluxation L5 on S1. Spondylolysis L5 Small left inguinal hernia unchanged from 2017. Small duodenal diverticulum IMPRESSION: No acute abnormality is displayed.
--- NOTE | 2024-01-31 09:17 | EDPHYS ---
Physician Documentation [facility] Name: Damián Angeles Age: 53 yrs Sex: Male : 1970 Arrival Date: 01/31/2024 Time: 07:51 Bed 6 Private MD: ED Physician Augusta Hay HPI: 01/30 08:00 This 53 yrs old Male presents to ER via Unassigned with complaints of left lower sp3 abdominal pain. 08:00 53-year-old male with a history of diabetes now presents from [facility] secondary to sp3 left lower quadrant abdominal pain which started suddenly while he was using all of his force and weight to "turn a valve". He states that this valve normally does not require this much force but he had to squat down and pull with a large amount of force after which she had sudden onset of left lower quadrant abdominal pain sharp in nature. Pain has subsided somewhat but is present when he moves. He denies any other symptoms including back pain, symptoms, vomiting, diarrhea, bleeding, chest pain, upper back pain, syncope, near syncope, or any other signs or symptoms on ROS at this time. He also denies any pain radiating to the testicle or groin.. Historical: - Allergies: 08:23 No Known Allergies; ll1 - PMHx: 08:23 Diabetes - NIDDM; Hernia; High Cholesterol; Hypertension; ll1 - Immunization history:: Adult Immunizations up to date. - Infectious Disease History:: Denies. - Social history:: Smoking status: Patient denies any tobacco usage or history of. ROS: 08:01 Constitutional: Negative for fever, chills, and weight loss, Eyes: Negative for injury, sp3 pain, redness, and discharge, ENT: Negative for injury, pain, and discharge, Neck: Negative for injury, pain, and swelling, Cardiovascular: Negative for chest pain, palpitations, and edema, Respiratory: Negative for shortness of breath, cough, wheezing, and pleuritic chest pain, Back: Negative for injury and pain, MS/Extremity: Negative for injury and deformity, Skin: Negative for injury, rash, and discoloration, Neuro: Negative for headache, weakness, numbness, tingling, and seizure, Psych: Negative for depression, anxiety, suicide ideation, homicidal ideation, and hallucinations, Allergy/Immunology: Negative for hives, rash, and allergies, Endocrine: Negative for neck swelling, polydipsia, polyuria, polyphagia, and marked weight changes, 08:01 All other systems are negative, Exam: 08:01 Constitutional: This is a well developed, well nourished patient who is awake, alert, sp3 and in no acute distress. Head/Face: Normocephalic, atraumatic. Eyes: Pupils equal round and reactive to light, extra-ocular motions intact. Lids and lashes normal. Conjunctiva and sclera are non-icteric and not injected. Cornea within normal limits. Periorbital areas with no swelling, redness, or edema. Neck: Trachea midline, no thyromegaly or masses palpated, and no cervical lymphadenopathy. Supple, full range of motion without nuchal rigidity, or vertebral point tenderness. No Meningismus. Chest/axilla: Normal chest wall appearance and motion. Nontender with no deformity. No lesions are appreciated. Cardiovascular: Regular rate and rhythm with a normal S1 and S2. No gallops, murmurs, or rubs. Normal PMI, no JVD. No pulse deficits. Respiratory: Lungs have equal breath sounds bilaterally, clear to auscultation and percussion. No rales, rhonchi or wheezes noted. No increased work of breathing, no retractions or nasal flaring. Back: No spinal tenderness. No costovertebral tenderness. Full range of motion. Skin: Warm, dry with normal turgor. Normal color with no rashes, no lesions, and no evidence of cellulitis. MS/ Extremity: Pulses equal, no cyanosis. Neurovascular intact. Full, normal range of motion. Neuro: Awake and alert, GCS 15, oriented to person, place, time, and situation. Cranial nerves II-XII grossly intact. Motor strength 5/5 in all extremities. Sensory grossly intact. Cerebellar exam normal. Normal gait. Psych: Awake, alert, with orientation to person, place and time. Behavior, mood, and affect are within normal limits. 08:01 Abdomen/GI: Mild left lower quadrant abdominal pain in the abdominal wall musculature noted on palpation. No significant swelling, inguinal mass, or any other abnormality noted including peritoneal signs., Vital Signs: 08:21 BP 122 / 83; Pulse 75; Resp 16; Temp 98; Pulse Ox 96% on R/A; Pain 5/10; ll1 08:45 BP 147 / 106; Pulse 72; Resp 17; Pulse Ox 96% ; ll1 09:25 BP 137 / 87; Pulse 69; Resp 16; Temp 97.8; Pulse Ox 97% ; Pain 7/10; ll1 08:21 Pain Scale: Adult ll1 09:25 Pain Scale: Adult ll1 MDM: 07:55 Patient medically screened. sp3 08:02 Data reviewed: vital signs, nurses notes, EMS record, lab test result(s), radiologic sp3 studies. ED course: 53-year-old male with left lower quadrant abdominal pain after exertion. Differential diagnosis includes musculoskeletal tear, deeper fascial tear, hernia, or other GI process. I am not highly suspicious for kidney stone, AAA, or any other critical process at this time. Workup will include laboratory values, urine analysis and CT scan of the abdomen pelvis with IV contrast. Disposition pending workup and patient course.. 09:15 ED course: CT scan demonstrates no significant abnormality and labs are normal. At this sp3 point diagnosis muscle strain and patient will get 1 day off of work secondary to his injury. He has 7 days off naturally after that and he should be clear for return however we will defer that to occupational health for final determination.. 01/30 07:56 Order name: CBC with Diff; Complete Time: 09:09 sp3 01/30 07:56 Order name: CMP; Complete Time: 09:09 sp3 01/30 07:56 Order name: Lipase; Complete Time: 09:09 3 01/30 07:56 Order name: Urinalysis w/ reflexes sp3 01/30 07:56 Order name: CT Abd/Pelvis - IV Contrast Only; Complete Time: 09:09 sp3 01/30 07:56 Order name: IV Saline Lock; Complete Time: 08:01 sp3 01/30 07:56 Order name: Labs collected and sent; Complete Time: 08:01 sp3 01/30 07:56 Order name: NPO; Complete Time: 08:01 sp3 Administered Medications: No medications were administered Disposition Summary: 01/31/24 09:16 Discharge Ordered Notes: Location: Home sp3 Condition: Stable sp3 Diagnosis - Strain of muscle, fascia and tendon of abdomen sp3 Followup: sp3 - With: Private Physician - When: Upon discharge from the Emergency Department - Reason: Continuance of care Discharge Instructions: - Discharge Summary Sheet ll1 - Muscle Strain sp3 Forms: - Work release form ll1 - Medication Reconciliation Form sp3 - Antibiotic Education sp3 - Prescription Opioid Use sp3 - Patient Portal Instructions sp3 - Leadership Thank You Letter sp3 Signatures: Dispatcher [employer] Mateus Fontaine RN RN ll1 Augusta Hay MD MD sp3 Corrections: (The following items were deleted from the chart) 07:56 07:56 CBC+H.LAB.BRZ ordered. EDMS EDMS 07:56 07:56 COMPREHENSIVE METABOLIC PANEL+C.LAB.BRZ ordered. EDMS EDMS 07:56 07:56 LIPASE+C.LAB.BRZ ordered. EDOR EDMS 07:56 07:56 Urinalysis+U.LAB.BRZ ordered. EDOR EDMS 07:56 07:56 Abdomen Pelvis W Con+CT.RAD.BRZ ordered. EDOR EDMS 08:01 08:00 53-year-old male with a history of diabetes now presents from [facility] secondary to left lower quadrant abdominal pain which started suddenly while he was using all of his force and weight to "turn a valve". He states that this valve normally does not require this much force but he had to squat down and pull with a large amount of force after which she had sudden onset of left lower quadrant abdominal pain sharp in nature. Pain has subsided somewhat but is present when he moves. He denies any other symptoms including back pain, symptoms, vomiting, diarrhea, bleeding, chest pain, upper back pain, syncope, near syncope, or any other signs or symptoms on ROS at this time.. sp3
--- NOTE | 2024-01-31 09:17 | ER ---
Nurse's Notes [facility] Name: Damián Angeles Age: 53 yrs Sex: Male : 1970 Arrival Date: 01/31/2024 Time: 07:51 Bed 6 Private MD: Diagnosis: Strain of muscle, fascia and tendon of abdomen Presentation: 01/30 08:21 Chief complaint: Patient states: Sudden pain to L flank/hip area while bending over at ll1 work 30 min [employer]. Coronavirus screen: Client denies travel out of the [place] in the last 14 days. At this time, the client does not indicate any symptoms associated with coronavirus-19. Ebola Screen: Patient denies travel to an Ebola-affected area in the 21 days before illness onset. 08:21 Method Of Arrival: EMS ll1 08:21 Initial Sepsis Screen: Does the patient meet any 2 criteria? No. Patient's initial ll1 sepsis screen is negative. Does the patient have a suspected source of infection? No. Patient's initial sepsis screen is negative. Risk Assessment: Do you want to hurt yourself or someone else? Patient reports no desire to harm self or others. Onset of symptoms was January 31, 2024. 08:21 Acuity: FELIBERTO 3 ll1 Triage Assessment: 08:23 General: Appears uncomfortable, Behavior is calm, cooperative, appropriate for age. ll1 Pain: Complains of pain in L flank. GI: Reports lower abdominal pain. : Reports pain in left flank(s). Historical: - Allergies: 08:23 No Known Allergies; ll1 - PMHx: 08:23 Diabetes - NIDDM; Hernia; High Cholesterol; Hypertension; ll1 - Immunization history:: Adult Immunizations up to date. - Infectious Disease History:: Denies. - Social history:: Smoking status: Patient denies any tobacco usage or history of. Screenin:24 [facility] ED Fall Risk Assessment (Adult) History of falling in the last 3 months, ll1 including since admission No falls in past 3 months (0 pts) Confusion or Disorientation No (0 pts) Intoxicated or Sedated No (0 pts) Impaired Gait No (0 pts) Mobility Assist Device Used No (0 pt) Altered Elimination No (0 pt) Score/Fall Risk Level 0 - 2 = Low Risk Maintained a safe environment, Hourly rounding (assess needs \T\ fall precautionary measures) done. Abuse screen: Denies threats or abuse. Nutritional screening: No deficits noted. Tuberculosis screening: No symptoms or risk factors identified. Assessment: 09:11 Reassessment: No changes from previously documented assessment. Dr. Hay at Patient ll1 denies pain at this time. 09:24 Reassessment: No changes from previously documented assessment. Patient and/or family ll1 updated on plan of care and expected duration. Pain level reassessed. Patient is alert, oriented x 3, equal unlabored respirations, skin warm/dry/pink. Vital Signs: 08:21 BP 122 / 83; Pulse 75; Resp 16; Temp 98; Pulse Ox 96% on R/A; Pain 5/10; ll1 08:45 BP 147 / 106; Pulse 72; Resp 17; Pulse Ox 96% ; ll1 09:25 BP 137 / 87; Pulse 69; Resp 16; Temp 97.8; Pulse Ox 97% ; Pain 7/10; ll1 08:21 Pain Scale: Adult ll1 09:25 Pain Scale: Adult ll1 ED Course: 07:55 Patient arrived in ED. ll1 07:55 Augusta Hay MD is Attending Physician. sp3 07:55 Arm band placed on Patient placed in an exam room, on a stretcher. ll1 08:01 Mateus Lechuga, KYLE is Primary Nurse. ll1 08:05 Inserted saline lock: 22 gauge in right antecubital area, using aseptic technique. rs5 Blood collected. 08:05 Initial lab(s) drawn, by wv, sent to lab. ll1 08:24 Triage completed. ll1 08:25 Patient has correct armband on for positive identification. Bed in low position. Call ll1 light in reach. Provided Education on: ER procedures and process. Client placed on continuous cardiac and pulse oximetry monitoring. NIBP monitoring applied. 08:49 CT Abd/Pelvis - IV Contrast Only In Process Unspecified. EDMS 09:12 Urine collected: clean catch specimen, clear, Amount Voided: 400mL. ll1 09:25 No provider procedures requiring assistance completed. IV discontinued, intact, ll1 bleeding controlled, No redness/swelling at site. Pressure dressing applied. Administered Medications: No medications were administered Medication: 09:26 VIS not applicable for this client. ll1 Outcome: 09:16 Discharge ordered by . sp3 09:25 Discharged to home ambulatory, ll1 09:25 Condition: stable 09:25 Discharge instructions given to patient, family, Instructed on discharge instructions, follow up and referral plans. Demonstrated understanding of instructions, follow-up care, 09:26 Patient left the ED. ll1 Signatures: Dispatcher [employer] EDMateus Norman RN RN ll1 Augusta Hay MD MD sp3 Omar Adkins RN RN rs5 Corrections: (The following items were deleted from the chart) 08:24 08:21 BP 122 / 83; ll1 ll1
[2024-01-31 09:24] LABS: Specific Gravity > 1.030 (1.005-1.030); Sqamous Epithelial None Seen /HPF (None Seen); Urine Bacteria None Seen /HPF (<20); Urine Bilirubin NEGATIVE (Negative); Urine Blood Negative (Negative); Urine Clarity Clear (Clear); Urine Color Light-Yellow (Yellow); Urine Culture Reflex Order NOT NEEDED; Urine Glucose 4+ (Over) (Negative); Urine Ketones NEGATIVE (Negative); Urine Microscopic Reflex YN ORDER UMIC; Urine Mucus Slight /HPF (None Seen); Urine Nitrite NEGATIVE (Negative); Urine Protein NEGATIVE (Negative); Urine RBC <5 /HPF (None Seen); Urine Urobilinogen Normal (Normal); Urine WBC <5 /HPF (<5); Urine pH 5.5 (5.0-7.0)
[2024-01-31 09:55] VITALS: BP 137/87; TEMP 97.8; O2SAT 97
== END 2024-01-31 09:26 | disposition home or self-care (01) ==
LOC: ER 07:51
DX: S39.011A Strain of muscle, fascia and tendon of abdomen, initial encounter (principal)
CPT/HCPCS: 85025; 81001; 36415; 83690; 80053; 74177; Q9967; 99284